=== PATIENT | female | born 1945 | race Caucasian/White ===

== ENCOUNTER → 2016-09-11 | Outpatient (CLI) | payer BC ==
[~2016-09-11] MED LIST: ALBU18002 INH; ALBU1AER9 INH; ALPR-385 PO; AMOX500C3 PO; ASCO250T4 PO; ASPI81CH5 PO; CHOL1CAP57 PO; CRAN500C2 PO; CYAN10004 PO; CYCL0.052 OP; FLAX12003 PO; FLUT0.0529; HYDR25TA4 PO; INSDGI SC; INSU1INJ2 SC; INSUINJ14 SC; LINA1CAP PO; LISI40TA PO; MAGN400T6 PO; METF500T5 PO; MISCCAP52 PO; MULT-223 PO; MULT60CA PO; OLOP0.1S2 OP; OMEG10007 PO; OPTIRAY 320 IV PRN; POTA10CA28 PO; POTA99TA PO; PROP1SOL OP
--- NOTE | 2016-09-11 08:04 | DIAGNOSTIC IMAGING REPORT ---
CT SCAN OF THE THORACIC SPINE WITH IV CONTRAST CLINICAL HISTORY: Unspecified abnormal spinal MRI. Reported cancer history. COMPARISON STUDY: Radiographs of the thoracic spine dated 11/02/2012. Chest CT dated 10/22/2014. MRI of the lumbar spine dated 08/14/2015. TECHNIQUE: Following the IV administration of 101 cc of Optiray 320, CT scan of the thoracic spine is performed from the lower cervical spine to the upper lumbar spine. Images were reviewed in the axial, sagittal, and coronal planes. IV contrast was administered without complication. CT DOSE: 844.37 mGy.cm FINDINGS: The skeletal structures are osteopenic. There is no evidence of fracture or malalignment involving the thoracic spine. Vertebral body height and alignment are maintained. Small anterior osteophytes are seen throughout. The transverse and spinous processes are intact. No lytic or blastic lesions are seen. The intervertebral disc spaces appear maintained. There is no evidence of large disc herniation. The central canal is clear as visualized. The paraspinous soft tissues are within normal limits. No enhancing mass lesion is suspected. There is a small hiatal hernia. The visualized lung parenchyma appears clear. The imaged posterior ribs are intact. A 1.3 cm nodule is identified in the left lobe of the thyroid gland. There are coronary artery calcifications. Cholecystectomy clips are noted. Findings suggest hepatic steatosis. Small bilateral renal cysts are noted. IMPRESSION: 1. No acute abnormality is seen involving the thoracic spine. 2. No lytic or blastic bony lesions are identified. Dictated: 09/11/2016 7:38 AM Transcribed: 09/11/2016 8:04 AM [facility] Electronically signed by: Fran Wharton M.D. 09/11/2016 8:38 AM Dictated Date/Time: 09/11/2016 7:38 AM
== END | disposition home or self-care (01) ==
LOC: C.CTS 07:10
PROVIDERS: ATTEND Family Medicine
DX: R93.7 Abnormal findings on diagnostic imaging of other parts of musculoskeletal system (principal)

== ENCOUNTER 2016-09-17 22:27 | Emergency (ER) | payer BC ==
[~2016-09-17] VITALS: Ht 160 cm; Wt 70.7 kg
[~2016-09-17 22:27] MED LIST changes: -ALBU18002 INH; -INSU1INJ2 SC; -METF500T5 PO; -OPTIRAY 320 IV PRN; -POTA99TA PO
[2016-09-17 22:29] VITALS: TEMP 36.5; Ht 160 cm; Wt 70.7 kg
--- NOTE | 2016-09-17 22:57 | EMERGENCY ROOM VISIT NOTE ---
History Report prepared by Ada: Michael Skaggs Under the Supervision of: Dr. Fernando Garibay D.O. First contact with patient: 22:37 Chief Complaint: OTHER COMPLAINT Stated Complaint: HIGH BP, LOW SUGAR, NUMBNESS FROM BELLY DOWN History of Present Illness The patient is a 71 year old female who presents to the Emergency Room with complaints of a persistent headache that began a few hours prior to arrival. The patient states that her pain is localized in the back of her head. 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 The patient also made note of an unusual "warm" feeling in her abdomen. She described this episode as a similar feeling to drinking CT contrast, which she did last Wednesday one week prior to arrival. This warm feeling lasted for only a few seconds. She states that her blood sugar was in the 120s today, which is low for her as she usually likes to stay in the 150's. The patient claims that she received injections in her back yesterday for chronic pain. She denies any ambulatory dysfunction today. She denies any recent bowel movement or urinary irregularities. Source of History: patient Onset: A few hours prior to arrival. Position: head Timing: other (Persistent) Associated Symptoms: + abdominal pain (WARMTH), No urinary symptoms Review of Systems See HPI for pertinent positives and negatives. A total of ten systems were reviewed and were otherwise negative. 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 Social History Smoking Status: Never Smoker Alcohol Use: none Drug Use: none Marital Status: Housing Status: lives alone Occupation Status: retired Current/Historical Medications Scheduled Amoxicillin (Amoxil), 2,000 MG PO PRN/UD Ascorbic Acid (Vitamin C), 250 MG PO DAILY Aspirin (Aspirin Childrens), 81 MG PO DAILY Cholecalciferol (Vitamin D3), 1,000 UNIT PO DAILY Cranberry (Vaccinium Macrocarp (Cranberry), 500 MG PO DAILY Cyanocobalamin (Vitamin B-12 1000 Mcg), 500 MCG PO DAILY Cyclosporine (Ophth) (Restasis), 1 DROPS OP BID Fish Oil (Matteson-3), 1,000 MG PO BID Flaxseed (Linseed) (Flaxseed Oil), 1 CAP PO DAILY Hydrochlorothiazide (Hctz), 25 MG PO DAILY Insulin Aspart (Novolog Penfill), Unknown Dose SC ACHS Insulin Glargine (Lantus), 30 UNITS SC QAM Insulin Glargine (Lantus), 28 UNITS SC QPM Lisinopril (Zestril), 40 MG PO DAILY Magnesium Oxide (Mag-Ox), 400 MG PO DAILY Metformin Hcl Er (Glucophage Er), 1 TAB PO QAM Misc Natural Products (Turmeric Curcumin), 500 MG PO DAILY Multiple Vitamins W/ Minerals (Multi For Her 50+), 1 TAB PO DAILY Multiple Vitamins W/ Minerals (Preservision Areds 2), 1 CAP PO BID Olopatadine Hcl (Patanol 0.1% Oph), 1 DROP OP BID Potassium (Potassium), 99 MG PO DAILY Scheduled PRN Albuterol Sulfate (Proair Respiclick), 2 PUFFS INH QID PRN for Shortness of Breath Alprazolam (Xanax), 1 TAB PO TID PRN for Anxiety Propylene Glycol (Ophth) (Systane Balance Restorati), 1-2 DROPS OP 2-4h PRN for Itching Allergies Coded Allergies: Linaclotide (Verified Allergy, Intermediate, UNWANTED REACTION, 09/18/16) Sulfa Antibiotics (Verified Allergy, Intermediate, RASH, 09/18/16) Celecoxib (Verified Allergy, Mild, unknown, 09/18/16) Nitrofurantoin (Verified Allergy, Mild, muscle pain, 09/18/16) CI Pigment Blue 63 (Verified Allergy, Unknown, ., 09/18/16) Duloxetine (Verified Allergy, Unknown, ., 09/18/16) Pneumococcal Vaccine (Verified Allergy, Unknown, 09/18/16) Pregabalin (Verified Allergy, Unknown, ., 09/18/16) Naproxen (Verified Adverse Reaction, Mild, heartburn, 09/18/16) Oxycodone (Verified Adverse Reaction, Mild, ITCHING, 09/18/16) Simvastatin (Verified Adverse Reaction, Mild, leg cramping, 09/18/16) Meloxicam (Verified Adverse Reaction, Unknown, HEART PALPITATIONS, 09/18/16 ) Physical Exam Vital Signs Date Time Temp Pulse Resp B/P Pulse Ox O2 Delivery O2 Flow Rate FiO2 09/18/16 01:04 63 18 159/80 96 Room Air 09/18/16 00:39 65 09/18/16 00:38 63 18 159/71 96 Room Air 09/18/16 00:37 94 Room Air 09/18/16 00:37 94 Room Air 09/17/16 22:29 36.5 73 18 192/84 98 Room Air Physical Exam GENERAL: Awake, alert, well-appearing, in no distress HENT: Normocephalic, atraumatic. Oropharynx unremarkable. EYES: Normal conjunctiva. Sclera non-icteric. NECK: Supple. No nuchal rigidity. FROM. No JVD. RESPIRATORY: Clear to auscultation. CARDIAC: Regular rate, normal rhythm. Extremities warm and well perfused. Pulses equal. ABDOMEN: Soft, non-distended. No tenderness to palpation. No rebound or guarding. No masses. RECTAL: Deferred. MUSCULOSKELETAL: Chest examination reveals no tenderness. The back is symmetrical on inspection without obvious abnormality. There is no CVA tenderness to palpation. No joint edema. LOWER EXTREMITIES: Calves are equal size bilaterally and non-tender. No edema. No discoloration. NEURO: Normal sensorium. No sensory or motor deficits noted. Normal neuro. SKIN: No rash or jaundice noted. Medical Decision & Procedures ER Provider Diagnostic Interpretation: X ray results as stated below per my interpretation and radiologist interpretation. Other radiology results as stated below per my review and radiologist interpretation CT HEAD: No acute intracranial abnormality. No ICH, mass effect or edema. Cortical atrophy and white matter changes most consistent with chronic small vessel disease. Visualized sinuses and mastoid air cells are clear. Radiologist: Carrington Nevarez MD Laboratory Results 09/17/16 23:00 Red Blood Count 4.46, Mean Corpuscular Volume 89.0, Mean Corpuscular Hemoglobin 31.2, Mean Corpuscular Hemoglobin Concent 35.0, Mean Platelet Volume 10.1, Neutrophils (%) (Auto) 36.1, Lymphocytes (%) (Auto) 48.3, Monocytes (%) (Auto) 12.1, Eosinophils (%) (Auto) 3.1, Basophils (%) (Auto) 0.4, Neutrophils # (Auto ) 2.01, Lymphocytes # (Auto) 2.68, Monocytes # (Auto) 0.67, Eosinophils # (Auto ) 0.17, Basophils # (Auto) 0.02 09/17/16 23:00 Test 09/17/16 23:00 09/18/16 00:36 White Blood Count 5.55 K/uL (4.8-10.8) Red Blood Count 4.46 M/uL (4.2-5.4) Hemoglobin 13.9 g/dL (12.0-16.0) Hematocrit 39.7 % (37-47) Mean Corpuscular Volume 89.0 fL (80-100) Mean Corpuscular Hemoglobin 31.2 pg (25-34) Mean Corpuscular Hemoglobin Concent 35.0 g/dl (32-36) Platelet Count 189 K/uL (130-400) Mean Platelet Volume 10.1 fL (7.4-10.4) Neutrophils (%) (Auto) 36.1 % Lymphocytes (%) (Auto) 48.3 % Monocytes (%) (Auto) 12.1 % Eosinophils (%) (Auto) 3.1 % Basophils (%) (Auto) 0.4 % Neutrophils # (Auto) 2.01 K/uL (1.4-6.5) Lymphocytes # (Auto) 2.68 K/uL (1.2-3.4) Monocytes # (Auto) 0.67 K/uL (0.11-0.59) Eosinophils # (Auto) 0.17 K/uL (0-0.5) Basophils # (Auto) 0.02 K/uL (0-0.2) RDW Standard Deviation 39.8 fL (36.4-46.3) RDW Coefficient of Variation 12.4 % (11.5-14.5) Immature Granulocyte % (Auto) 0.0 % Immature Granulocyte # (Auto) 0.00 K/uL (0.00-0.02) Prothrombin Time 10.8 SECONDS (9.0-12.0) Prothromb Time International Ratio 1.0 (0.9-1.1) Anion Gap 6.0 mmol/L (3-11) Est Creatinine Clear Calc Drug Dose 70.5 ml/min Estimated GFR () 101.3 Estimated GFR (Non- 87.4 BUN/Creatinine Ratio 37.8 (10-20) Calcium Level 9.3 mg/dl (8.5-10.1) Total Bilirubin 0.4 mg/dl (0.2-1) Direct Bilirubin < 0.1 mg/dl (0-0.2) Aspartate Amino Transf (AST/SGOT) 35 U/L (15-37) Alanine Aminotransferase (ALT/SGPT) 58 U/L (12-78) Alkaline Phosphatase 103 U/L (45-117) Total Protein 7.0 gm/dl (6.4-8.2) Albumin 3.7 gm/dl (3.4-5.0) Bedside Glucose 138 mg/dl (70-90) Laboratory results reviewed by me ECG Indication: weakness Rate (beats per minute): 67 Rhythm: sinus rhythm Findings: other (LAD, LVH) ED Course 9: The patient was evaluated in room C8. A complete history and physical exam was performed. 0103: I reevaluated the patient at this time. She is now complaining of burning throughout her body. There are no focal neurologic deficits on exam. Her vitals are stable. Medical Decision Differential diagnosis include: headache, stroke, anxiety, hypertension, and hypoglycemia. Patient is resting in no distress on repeat examination, patient is nonfocal neurologically at 1:20 AM. Patient does not exhibit any signs of cauda equina I do not suspect that she's had a CVA or TIA. Her blood sugar is stable. I discussed the workup with the patient bedside and her family. I also analyzed her urine I do not suspect urinary tract infection as etiology of the symptoms; Patient is nontoxic A do not suspect sepsis, I do not suspect an epidural abscess. Impression Primary Impression: Headache Additional Impression: Paresthesia Scribe Attestation The scribe's documentation has been prepared under my direction and personally reviewed by me in its entirety. I confirm that the note above accurately reflects all work, treatment, procedures, and medical decision making performed by me. Departure Information Dispostion Home / Self-Care Referrals Michi Melchor D.OWendy (PCP) Patient Instructions ED Headache Sinus, ED Paraesthesias, [facility] Additional Instructions Follow-up primary care physician in one to 2 days, return for worsening symptoms. Problem Qualifiers Primary Impression: Headache Headache type: unspecified Headache chronicity pattern: acute headache Intractability: not intractable Qualified Codes: R51 - Headache
[2016-09-17 23:19] LABS: BASO % 0.4 %; BASO ABS # 0.02 K/uL (0-0.2); COMPLETE YES; EOS % 3.1 %; HEMATOCRIT 39.7 % (37-47); LYMPH % 48.3 %; LYMPH ABS # 2.68 K/uL (1.2-3.4); MEAN CORPUSCULAR HEMOGLOBIN 31.2 pg (25-34); MEAN PLATELET VOLUME 10.1 fL (7.4-10.4); MONO % 12.1 %; NEUT % 36.1 %; PLATELET COUNT 189 K/uL (130-400); RED BLOOD COUNT 4.46 M/uL (4.2-5.4); WHITE BLOOD COUNT 5.55 K/uL (4.8-10.8)
[2016-09-17 23:28] LABS: PROTHROMBIN TIME (PATIENT) 10.8 SECONDS (9.0-12.0)
[2016-09-17 23:40] LABS: ALT/SGPT 58 U/L (12-78); AST/SGOT 35 U/L (15-37); BLOOD UREA NITROGEN 26 mg/dl (7-18); BUN/CREATININE RATIO 37.8 (10-20); CALCIUM 9.3 mg/dl (8.5-10.1); CARBON DIOXIDE 32 mmol/L (21-32); CHLORIDE 107 mmol/L (98-107); CREATININE 0.68 mg/dl (0.60-1.20); GLUCOSE 132 mg/dl (70-99); POTASSIUM 3.4 mmol/L (3.5-5.1); SODIUM 145 mmol/L (136-145)
[2016-09-17 23:42] LABS: ALKALINE PHOSPHATASE 103 U/L (45-117)
[2016-09-18 00:37] VITALS: O2SAT 94
[2016-09-18 01:04] VITALS: BP 159/80; PULSE 63; O2SAT 96
[2016-09-18] MEDS ORDERED: INSDGI SC ×2 (01:07)
[2016-09-18] MEDS ORDERED: METF500T5 PO (01:07)
[2016-09-18] MEDS ORDERED: ALBU18002 INH (01:07)
[2016-09-18] MEDS ORDERED: INSU1INJ2 SC (01:07)
[2016-09-18] MEDS ORDERED: POTA99TA PO (01:07)
--- NOTE | 2016-09-18 07:07 | DIAGNOSTIC IMAGING REPORT ---
CT SCAN OF THE BRAIN WITHOUT IV CONTRAST CLINICAL HISTORY: Headache. COMPARISON STUDY: CT of the brain dated 05/26/2016. TECHNIQUE: Unenhanced axial CT scan of the brain is performed from the vertex to the skull base. CT DOSE: 638.56 mGycm FINDINGS: Brain parenchyma: There are age-related involutional changes noting mild subcortical and periventricular microangiopathic change. There is no hemorrhage, mass effect, or evidence of acute territorial ischemia by CT criteria. Waggoner-white matter is preserved. No extra-axial fluid collection is seen. Ventricles, sulci, cisterns: Prominent secondary to involutional change. Intracranial vasculature: There is atherosclerotic calcification of the cavernous carotid arteries. Calvarium: Unremarkable. Sinuses and mastoids: The visualized paranasal sinuses are clear. The mastoid air cells are well pneumatized. Orbits: The bony orbits are grossly intact. There are bilateral ocular lens implants. IMPRESSION: There is no hemorrhage, mass effect, or evidence of acute territorial ischemia by CT criteria. Electronically signed by: Fran Wharton M.D. 09/18/2016 7:06 AM Dictated Date/Time: 09/18/2016 7:05 AM
== END 2016-09-18 01:33 | disposition home or self-care (01) ==
LOC: C.EDB 22:29 → C.EDC 09-18 01:33
DX: R51 Headache (principal); R20.9 Unspecified disturbances of skin sensation; F41.9 Anxiety disorder, unspecified; R00.1 Bradycardia, unspecified; E11.9 Type 2 diabetes mellitus without complications; M79.7 Fibromyalgia; Z85.3 Personal history of malignant neoplasm of breast; I10 Essential (primary) hypertension; E87.6 Hypokalemia; E78.00 Pure hypercholesterolemia, unspecified; Z90.10 Acquired absence of unspecified breast and nipple; Z90.710 Acquired absence of both cervix and uterus; Z79.82 Long term (current) use of aspirin; Z79.4 Long term (current) use of insulin; Z79.899 Other long term (current) drug therapy

== ENCOUNTER 2016-09-28 22:09 | Emergency (ER) | payer BC ==
[~2016-09-28] VITALS: Ht 160 cm; Wt 70.0 kg
[2016-09-28 22:08] VITALS: TEMP 37; Ht 160 cm; Wt 70.0 kg
[~2016-09-28 22:09] MED LIST changes: +ALBU18002 INH; -ALBU1AER9 INH; -FLUT0.0529; +INSU1INJ2 SC; -INSUINJ14 SC; -LINA1CAP PO; +METF500T5 PO; -OLOP0.1S2 OP; +OLOP0.1S3 OP; -POTA10CA28 PO; +POTA99TA PO
[2016-09-28 23:20] LABS: URINE APPEARANCE CLEAR (CLEAR); URINE BILIRUBIN NEG (NEG); URINE COLOR YELLOW; URINE NITRITE NEG (NEG); URINE PH 7.5 (4.5-7.5); URINE SPECIFIC GRAVITY 1.011 (1.000-1.030); UROBILINOGEN NEG (NEG); ZZUR CULT IF INDIC CLEAN CATCH NO
[2016-09-28 23:23] LABS: MANUAL MICROSCOPIC REQUIRED? NO; REVIEW REQ? NO
[2016-09-28 23:46] LABS: BASO % 0.2 %; BASO ABS # 0.01 K/uL (0-0.2); COMPLETE YES; EOS % 1.6 %; HEMATOCRIT 37.3 % (37-47); LYMPH % 44.6 %; MEAN CELL VOLUME 87.8 fL (80-100); MEAN CORPUSCULAR HEMOGLOBIN 31.5 pg (25-34); MEAN CORPUSCULAR HGB CONC 35.9 g/dl (32-36); MEAN PLATELET VOLUME 9.9 fL (7.4-10.4); MONO % 12.5 %; NEUT % 41.1 %; PLATELET COUNT 181 K/uL (130-400); RED BLOOD COUNT 4.25 M/uL (4.2-5.4); WHITE BLOOD COUNT 4.48 K/uL (4.8-10.8)
[2016-09-28] MEDS ORDERED: ONDANSETRON INJ 2 MG/ML 2 ML VIAL IV STA (23:59)
[2016-09-29 00:03] LABS: BUN/CREATININE RATIO 29.8 (10-20); CALCIUM 9.1 mg/dl (8.5-10.1); CREATININE 0.71 mg/dl (0.60-1.20); POTASSIUM 3.1 mmol/L (3.5-5.1)
[2016-09-29] MEDS ORDERED: POTASSIUM CHLORIDE 10 MEQ TABCR PO STA (00:27)
--- NOTE | 2016-09-29 00:44 | EMERGENCY ROOM VISIT NOTE ---
History Report prepared by Ada: Jose E Renee Under the Supervision of: Dr. Yaritza Veras M.D. First contact with patient: 23:08 Chief Complaint: OTHER COMPLAINT Stated Complaint: WARM, FLUSH FEELING AFTER TAKEN MEDS. History of Present Illness The patient is a 71 year old female who presents to the Emergency Room by EMS with complaints of an episode of a "hot" sensation occurring about three hours ago. She described the sensation as feeling like "a heat wave" and states that it travelled from her head down to her toes. She also complains of tingling to her mouth and difficulty walking. The patient estimates that her symptoms lasted for about five minutes. She notes that she took her blood sugar and blood pressure following the episode. Her systolic blood pressure was 189 at this time. The patient was recently started on Metformin three weeks ago. She states that she took her daily medications shortly before her symptoms began. Included in these medications were her blood pressure medications, aspirin, and metformin. The patient was seen in the ED last week for similar symptoms. She received a head CT at this time which was normal. 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 The patient denies any nausea. Per family, the patient has had three similar episodes in the past few weeks. He states that the patient has been "not herself" lately. He also notes that she has the patient has experienced some "left hand shaking" with her symptoms today. The patient's family notes that there has been a strong smell of propane in the patient's house, and feels that this could possibly be contributing to her symptoms. Source of History: patient, family Onset: three hours ago Symptom Intensity: five minutes Quality: other (like "a heat wave") Timing: other (episode) Associated Symptoms: No nausea Note: The patient also complains of difficulty walking and tingling to her mouth. She also experienced some left hand shaking. Review of Systems See HPI for pertinent positives & negatives. A total of 10 systems reviewed and were otherwise negative. 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 Social History Smoking Status: Never Smoker Alcohol Use: none Drug Use: none Marital Status: Housing Status: lives alone Occupation Status: retired Current/Historical Medications Scheduled Amoxicillin (Amoxil), 2,000 MG PO PRN/UD Ascorbic Acid (Vitamin C), 250 MG PO DAILY Aspirin (Aspirin Childrens), 81 MG PO DAILY Cholecalciferol (Vitamin D3), 1,000 UNIT PO DAILY Cranberry (Vaccinium Macrocarp (Cranberry), 500 MG PO DAILY Cyanocobalamin (Vitamin B-12 1000 Mcg), 500 MCG PO DAILY Cyclosporine (Ophth) (Restasis), 1 DROPS OP BID Fish Oil (Spring-3), 1,000 MG PO BID Flaxseed (Linseed) (Flaxseed Oil), 1 CAP PO DAILY Hydrochlorothiazide (Hctz), 25 MG PO DAILY Insulin Aspart (Novolog Penfill), Unknown Dose SC ACHS Insulin Glargine (Lantus), 30 UNITS SC QAM Insulin Glargine (Lantus), 28 UNITS SC QPM Lisinopril (Zestril), 40 MG PO DAILY Magnesium Oxide (Mag-Ox), 400 MG PO DAILY Metformin Hcl Er (Glucophage Er), 1 TAB PO QAM Misc Natural Products (Turmeric Curcumin), 500 MG PO DAILY Multiple Vitamins W/ Minerals (Multi For Her 50+), 1 TAB PO DAILY Multiple Vitamins W/ Minerals (Preservision Areds 2), 1 CAP PO BID Olopatadine Hcl (Patanol 0.1% Oph), 1 DROP OP BID Potassium (Potassium), 99 MG PO DAILY Scheduled PRN Albuterol Sulfate (Proair Respiclick), 2 PUFFS INH QID PRN for Shortness of Breath Alprazolam (Xanax), 1 TAB PO TID PRN for Anxiety Propylene Glycol (Ophth) (Systane Balance Restorati), 1-2 DROPS OP 2-4h PRN for Itching Allergies Coded Allergies: Linaclotide (Verified Allergy, Intermediate, UNWANTED REACTION, 09/29/16) Sulfa Antibiotics (Verified Allergy, Intermediate, RASH, 09/29/16) Celecoxib (Verified Allergy, Mild, unknown, 09/29/16) Nitrofurantoin (Verified Allergy, Mild, muscle pain, 09/29/16) CI Pigment Blue 63 (Verified Allergy, Unknown, ., 09/29/16) Duloxetine (Verified Allergy, Unknown, ., 09/29/16) Pneumococcal Vaccine (Verified Allergy, Unknown, 09/29/16) Pregabalin (Verified Allergy, Unknown, ., 09/29/16) Naproxen (Verified Adverse Reaction, Mild, heartburn, 09/29/16) Oxycodone (Verified Adverse Reaction, Mild, ITCHING, 09/29/16) Simvastatin (Verified Adverse Reaction, Mild, leg cramping, 09/29/16) Meloxicam (Verified Adverse Reaction, Unknown, HEART PALPITATIONS, 09/29/16 ) Physical Exam Vital Signs Date Time Temp Pulse Resp B/P Pulse Ox O2 Delivery O2 Flow Rate FiO2 09/29/16 01:14 64 18 158/68 97 09/28/16 23:59 68 18 140/67 97 Room Air 09/28/16 22:23 72 09/28/16 22:08 37.0 74 20 163/87 94 Room Air Physical Exam Vital signs reviewed. General: Well-appearing female, in no significant distress. HEENT: No scleral icterus, PERRLA, neck supple. Atraumatic. Cardiovascular: Regular rate and rhythm, no extra sounds. Pulmonary: Clear to auscultation bilaterally, normal work of breathing. Abdomen: Soft, nontender, nondistended, positive bowel sounds. Musculoskeletal: Atraumatic, no peripheral edema. Neurologic: Patient awake alert and oriented x 3, full strength in all 4 extremities. Cranial nerves 2 through 12 grossly intact. Skin: Warm, dry, no rash Medical Decision & Procedures Laboratory Results 09/28/16 23:35 Red Blood Count 4.25, Mean Corpuscular Volume 87.8, Mean Corpuscular Hemoglobin 31.5, Mean Corpuscular Hemoglobin Concent 35.9, Mean Platelet Volume 9.9, Neutrophils (%) (Auto) 41.1, Lymphocytes (%) (Auto) 44.6, Monocytes (%) (Auto) 12.5, Eosinophils (%) (Auto) 1.6, Basophils (%) (Auto) 0.2, Neutrophils # (Auto ) 1.84, Lymphocytes # (Auto) 2.00, Monocytes # (Auto) 0.56, Eosinophils # (Auto ) 0.07, Basophils # (Auto) 0.01 09/28/16 23:35 Test 09/28/16 22:20 09/28/16 23:35 09/28/16 23:40 Urine Color YELLOW Urine Appearance CLEAR (CLEAR) Urine pH 7.5 (4.5-7.5) Urine Specific [place] 1.011 (1.000-1.030) Urine Protein NEG (NEG) Urine Glucose (UA) NEG (NEG) Urine Ketones NEG (NEG) Urine Occult Blood NEG (NEG) Urine Nitrite NEG (NEG) Urine Bilirubin NEG (NEG) Urine Urobilinogen NEG (NEG) Urine Leukocyte Esterase SMALL (NEG) Urine WBC (Auto) 5-10 /hpf (0-5) Urine RBC (Auto) 0-4 /hpf (0-4) Urine Hyaline Casts (Auto) 1-5 /lpf (0-5) Urine Epithelial Cells (Auto) 10-20 /lpf (0-5) Urine Bacteria (Auto) NEG (NEG) White Blood Count 4.48 K/uL (4.8-10.8) Red Blood Count 4.25 M/uL (4.2-5.4) Hemoglobin 13.4 g/dL (12.0-16.0) Hematocrit 37.3 % (37-47) Mean Corpuscular Volume 87.8 fL (80-100) Mean Corpuscular Hemoglobin 31.5 pg (25-34) Mean Corpuscular Hemoglobin Concent 35.9 g/dl (32-36) Platelet Count 181 K/uL (130-400) Mean Platelet Volume 9.9 fL (7.4-10.4) Neutrophils (%) (Auto) 41.1 % Lymphocytes (%) (Auto) 44.6 % Monocytes (%) (Auto) 12.5 % Eosinophils (%) (Auto) 1.6 % Basophils (%) (Auto) 0.2 % Neutrophils # (Auto) 1.84 K/uL (1.4-6.5) Lymphocytes # (Auto) 2.00 K/uL (1.2-3.4) Monocytes # (Auto) 0.56 K/uL (0.11-0.59) Eosinophils # (Auto) 0.07 K/uL (0-0.5) Basophils # (Auto) 0.01 K/uL (0-0.2) RDW Standard Deviation 39.3 fL (36.4-46.3) RDW Coefficient of Variation 12.3 % (11.5-14.5) Immature Granulocyte % (Auto) 0.0 % Immature Granulocyte # (Auto) 0.00 K/uL (0.00-0.02) Anion Gap 10.0 mmol/L (3-11) Est Creatinine Clear Calc Drug Dose 67.2 ml/min Estimated GFR () 98.6 Estimated GFR (Non- 85.1 BUN/Creatinine Ratio 29.8 (10-20) Calcium Level 9.1 mg/dl (8.5-10.1) Total Bilirubin 0.5 mg/dl (0.2-1) Aspartate Amino Transf (AST/SGOT) 37 U/L (15-37) Alanine Aminotransferase (ALT/SGPT) 59 U/L (12-78) Alkaline Phosphatase 104 U/L (45-117) Total Protein 7.0 gm/dl (6.4-8.2) Albumin 3.5 gm/dl (3.4-5.0) Globulin 3.5 gm/dl (2.5-4.0) Albumin/Globulin Ratio 1.0 (0.9-2) Bedside Troponin I 0.000 ng/ml (0-0.045) Laboratory results per my review. Medications Administered Medications (Trade) Dose Ordered Sig/Ellen Route Start Time Stop Time Status Last Admin Dose Admin Ondansetron HCl (Zofran Inj) 4 mg NOW STAT IV 09/28/16 23:59 09/29/16 00:01 DC 09/29/16 00:09 4 MG Potassium Chloride (Klor-Con M10) 40 meq NOW STAT PO 09/29/16 00:27 09/29/16 00:28 DC 09/29/16 00:45 40 MEQ ECG Indication: other (abnormal sensations) Rate (beats per minute): 71 Rhythm: normal sinus Findings: other (LAD. LVH. Widened QRS. Repolarization abnormality) ED Course 2313: Past medical records reviewed. The patient was evaluated in room C7. A complete history and physical examination was performed. 235: Ordered Zofran Inj 4 mg IV. 0027: Ordered Klor-Con M10 40 meq PO. 0045: Upon reevaluation, the patient appeared to have improvement of her symptoms. I discussed findings with the patient. She verbalized agreement of the treatment plan. The patient was discharged home. Medical Decision Differential diagnosis: Etiologies such as metabolic, infection, hypo/hyperglycemia, electrolyte abnormalities, cardiac sources, intracerebral event, toxicologic, neurologic, as well as others were entertained. This patient was evaluated and appeared to be in no significant distress. Physical examination is fairly unrevealing. The patient was placed on the youth nutritional monitor and found to be in a normal sinus rhythm. She was given Zofran for nausea. Laboratory work reveals mild hypokalemia. She was given 40 mEq of oral potassium. EKG reveals a normal sinus rhythm without evidence of ischemia or arrhythmia. The patient has had [address] scans of the head which are normal. With the shaking of the extremity during these episodes, and is likely in the patient's best interest to have an MRI and EEG. I do not think this is urgent. She was advised to follow-up with her primary care physician this week for reevaluation and coordination of further testing if indicated. The patient will return to the ER for worsening of symptoms or any medical concerns. Impression Primary Impression: Episode of shaking Additional Impressions: Flushing reaction Hypokalemia Scribe Attestation The scribe's documentation has been prepared under my direction and personally reviewed by me in its entirety. I confirm that the note above accurately reflects all work, treatment, procedures, and medical decision making performed by me. Departure Information Dispostion Home / Self-Care Referrals Michi Melchor D.O. (PCP) Forms HOME CARE DOCUMENTATION FORM, IMPORTANT VISIT INFORMATION, WORK / SCHOOL INSTRUCTIONS Patient Instructions My [facility] Additional Instructions Diagnosis: Flushing reaction, Shaking, low potassium Follow up with your doctor this week for reevaluation. You may need neurology referral for ?seizure activity. You will likely need EEG and MRI Return to emergency for worsening of symptoms or any medical concerns. Problem Qualifiers
[2016-09-29 01:14] VITALS: BP 158/68; PULSE 64; O2SAT 97
== END 2016-09-29 01:15 | disposition home or self-care (01) ==
LOC: EDBD 22:09 → C.EDC 22:12
DX: R25.1 Tremor, unspecified (principal); R23.2 Flushing; E87.6 Hypokalemia; F41.9 Anxiety disorder, unspecified; E11.9 Type 2 diabetes mellitus without complications; M79.7 Fibromyalgia; I10 Essential (primary) hypertension; M19.90 Unspecified osteoarthritis, unspecified site; E78.00 Pure hypercholesterolemia, unspecified; Z85.3 Personal history of malignant neoplasm of breast; Z90.710 Acquired absence of both cervix and uterus; Z90.10 Acquired absence of unspecified breast and nipple; Z96.659 Presence of unspecified artificial knee joint; Z79.82 Long term (current) use of aspirin; Z79.4 Long term (current) use of insulin

== ENCOUNTER → 2016-10-26 | Outpatient (CLI) | payer BC ==
--- NOTE | 2016-10-27 18:02 | ELECTROENCEPHALOGRAPH REPORT ---
REQUESTING PHYSICIAN: Jacinto Zheng MD CLINICAL DIAGNOSIS: Shaking spells, frequent headaches, question seizures. EEG DIAGNOSIS: Essentially normal during wakefulness. DESCRIPTION OF TRACING: This EEG was done in laboratory and is of excellent technical quality without significant muscle or movement artifacts. Simultaneous video analysis of patient movement and behavior was obtained. Photic stimulation was performed. Hyperventilation was not. Drowsiness and light sleep were not seen. Under these conditions, there is evidence for normal appearing background rhythm in the alpha range of up to 10 Hz of maximum frequency and 30 microvolts of maximum amplitude. This is maximum in posterior head regions and bilaterally symmetrical. Polymorphic mid frequency theta activity is seen over all head regions without clear focal or regional predominance. Anterior head region maximum bilaterally symmetrical low voltage fast activity in the beta range is present. Photic stimulation provoked some modest driving response at most flash frequencies without a photomyogenic or photoparoxysmal component. At no time during the waking tracing is there evidence for potentially epileptogenic activity in the form of polyspike or spike wave bursts, focal sharp waves or focal spikes. INTERPRETATION: This electroencephalogram is essentially normal during wakefulness without evidence for focal or generalized encephalopathy and without evidence for potentially epileptogenic activity.
== END | disposition home or self-care (01) ==
LOC: C.NEUR 12:50
PROVIDERS: ATTEND Family Medicine
DX: R51 Headache (principal); R25.1 Tremor, unspecified

== ENCOUNTER → 2017-08-24 | Outpatient (CLI) | payer BC ==
--- NOTE | 2017-08-24 07:50 | DIAGNOSTIC IMAGING REPORT ---
ABDOMEN LIMITED (US) CLINICAL HISTORY: R GROIN PAIN COMPARISON STUDY: None. FINDINGS: Small fat-containing reducible right inguinal hernia. No masses or fluid collections within the right groin. IMPRESSION: Small fat-containing reducible right inguinal hernia. Electronically signed by: Mac Mon M.D. 08/24/2017 7:49 AM Dictated Date/Time: 08/24/2017 7:49 AM
== END | disposition home or self-care (01) ==
LOC: C.ULTR 07:15
PROVIDERS: ATTEND Physician Assistant
DX: K40.90 Unilateral inguinal hernia, without obstruction or gangrene, not specified as recurrent (principal)

== ENCOUNTER → 2017-09-14 | Outpatient (CLI) | payer BC ==
--- NOTE | 2017-09-14 12:04 | DIAGNOSTIC IMAGING REPORT ---
R EXTREMITY NONVASCULAR LIMITED CLINICAL HISTORY: RT SIDED CHEST PAIN, HX OF BREAST CANCER TECHNIQUE: Ultrasound COMPARISON STUDY: CT soft tissue neck 08/26/2015 FINDINGS: Very poor definition of the subcutaneous tissues. Possible 1.5 cm nodule versus lymph node high right axilla. No evidence for abscess or collection. Echogenicity of the tissues otherwise unremarkable postmastectomy. IMPRESSION: Possible 1.5 cm node versus artifact right axilla. The above report was generated using voice recognition software. It may contain grammatical, syntax or spelling errors. Electronically signed by: Noam Osborn M.D. 09/14/2017 12:02 PM Dictated Date/Time: 09/14/2017 12:00 PM
== END | disposition home or self-care (01) ==
LOC: C.ULTR 10:31
PROVIDERS: ATTEND Family Medicine
DX: R07.9 Chest pain, unspecified (principal)

== ENCOUNTER 2017-10-09 13:20 | Observation (INO) | payer BC ==
[~2017-10-09] VITALS: Ht 160 cm; Wt 71.2 kg
[~2017-10-09 13:20] MED LIST changes: -CYCL0.052 OP; +CYCL0.052 OPB; -OLOP0.1S3 OP; +OLOP0.1S3 OPB
[2017-10-09] MEDS ORDERED: ASPIRIN 81 MG CHEW PO STA (13:46)
--- NOTE | 2017-10-09 13:54 | EMERGENCY ROOM VISIT NOTE ---
History Report prepared by Ada: Uma Small Under the Supervision of: Dr. Jerrell Mustafa M.D. First contact with patient: 13:38 Chief Complaint: SHORTNESS OF BREATH Stated Complaint: SHORTNESS OF BREATH Nursing Triage Summary: pt here with recent increased sob with exertion. pt states also has hx of anxiety and has been getting worked up thinking about it. pt denies any lower leg swelling History of Present Illness The patient is a 72 year old female who presents to the Emergency Room with complaints of SOB. He states his shortness of breath has been going on for the last 2 weeks. Patient reports her shortness of breath is worse with exertion, especially walking. She states she feels short of breath after walking short distances. She describes that was having "tingles" across both arms and sometimes her legs. She states she has tightness in her chest and describes it as a 4/10 in severity. She denies any long plane rides, long car rides, immobilization, or trauma. The patient states she does take estrogen creams. She notes she has had some anxiety since she discovered a lump under her arm. 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 Positive anxiety Review of Systems See HPI for pertinent positives and negatives. A total of ten systems were reviewed and were otherwise negative. 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 Social History Smoking Status: Former Smoker (socail ) Alcohol Use: none Drug Use: none Marital Status: Housing Status: lives alone Occupation Status: retired Current/Historical Medications Scheduled Amoxicillin (Amoxil), 2,000 MG PO PRN/UD Ascorbic Acid (Vitamin C), 250 MG PO QAM Aspirin (Aspirin Childrens), 81 MG PO HS Cranberry (Vaccinium Macrocarp (Cranberry), 500 MG PO QAM Cyclosporine (Ophth) (Restasis), 1 DROPS OPB BID Fish Oil ([place]-3), 1,000 MG PO BID Hydrochlorothiazide (Hctz), 25 MG PO QAM Insulin Aspart (Novolog Penfill), Unknown Dose SC ACHS Insulin Glargine (Lantus), 36 UNITS SC QAM Insulin Glargine (Lantus), 24 UNITS SC QPM Lisinopril (Zestril), 40 MG PO HS Magnesium Oxide (Mag-Ox), 400 MG PO QAM Misc Natural Products (Turmeric Curcumin), 500 MG PO QAM Multiple Vitamins W/ Minerals (Multi For Her 50+), 1 TAB PO QAM Naproxen (Aleve), 220 MG PO UD Potassium (Potassium), 99 MG PO HS Scheduled PRN Alprazolam (Xanax), 1 TAB PO TID PRN for Anxiety Olopatadine Hcl (Patanol 0.1% Oph), 1 DROP OPB BID PRN for Itching Propylene Glycol (Ophth) (Systane Balance Restorati), 1-2 DROPS OP 2-4h PRN for Itching Allergies Coded Allergies: Latex (Unverified Allergy, Intermediate, REDNESS, 10/09/17) Linaclotide (Verified Allergy, Intermediate, UNWANTED REACTION, 10/09/17) Sulfa Antibiotics (Verified Allergy, Intermediate, RASH, 10/09/17) Celecoxib (Verified Allergy, Mild, unknown, 10/09/17) Nitrofurantoin (Verified Allergy, Mild, muscle pain, 10/09/17) CI Pigment Blue 63 (Verified Allergy, Unknown, ., 10/09/17) Duloxetine (Verified Allergy, Unknown, ., 10/09/17) Pneumococcal Vaccine (Verified Allergy, Unknown, 10/09/17) Pregabalin (Verified Allergy, Unknown, ., 10/09/17) Naproxen (Verified Adverse Reaction, Mild, heartburn, 10/09/17) Oxycodone (Verified Adverse Reaction, Mild, ITCHING, 10/09/17) Simvastatin (Verified Adverse Reaction, Mild, leg cramping, 10/09/17) Meloxicam (Verified Adverse Reaction, Unknown, HEART PALPITATIONS, 10/09/17) Physical Exam Vital Signs Date Time Temp Pulse Resp B/P (MAP) Pulse Ox O2 Delivery O2 Flow Rate FiO2 10/09/17 16:28 133/69 10/09/17 15:50 61 19 10/09/17 15:31 153/72 10/09/17 15:24 95 Room Air 10/09/17 15:20 61 20 10/09/17 15:17 163/71 10/09/17 14:20 60 16 96 10/09/17 13:57 95 Room Air 10/09/17 13:50 62 16 10/09/17 13:48 61 10/09/17 13:33 36.6 72 16 143/80 95 Room Air Physical Exam Physical Exam GENERAL: She is oriented to person, place, and time. she appears well- developed and well-nourished. She does not appear distressed. ____ HENT: Exam performed. Head: Normocephalic and atraumatic. Right Ear: External ear normal. No mastoid tenderness. Left Ear: External ear normal. No mastoid tenderness. Mouth/Throat: The oropharynx is clear and moist. No trismus in the jaw. No dental abscesses or uvula swelling. No oropharyngeal exudate or tonsillar abscesses. ____ EYES: Conjunctivae and EOM are normal. Pupils are equal, round, and reactive to light. Right eye exhibits no discharge. Left eye exhibits no discharge. No scleral icterus. ____ NECK: Normal range of motion. Neck supple. No JVD present. No spinous process tenderness present. No carotid bruit present. No rigidity. No tracheal deviation and normal range of motion present. No Brudzinski's sign and no Kernig 's sign noted. ____ CV: Normal rate, regular rhythm, normal heart sounds and intact distal pulses. There is no peripheral edema. Palpable radial pulses bue. ____ PULM/CHEST: Effort normal and breath sounds normal. No respiratory distress. No stridor. She has no wheezes. She has no rales. Chest Wall: She exhibits no tenderness. ____ ABD: The abdomen is soft. Bowel sounds are normal. She has no distension. No mass is present. There is no tenderness. There is no rebound, no guarding, no Mcmullen's sign and no tenderness at McBurney's point. Rovsig negative MUSC/SKEL: Normal range of motion. There is no peripheral edema, tenderness or deformity. LYMPH: No cervical adenopathy. ____ NEURO: She is alert and oriented to person, place, and time. She has normal strength. No cranial nerve deficit or sensory deficit. Coordination and gait normal. GCS eye subscore is 4. GCS verbal subscore is 5. GCS motor subscore is 6. Cerebellar tests wnl. ____ SKIN: Skin is warm and dry. She is not diaphoretic. ____ PSYCH: She has a normal mood and affect. Her behavior is normal. Judgment and thought content normal. ____ Medical Decision & Procedures ER Provider Diagnostic Interpretation: Radiology results as stated below per my review and radiologist interpretation: CHEST 2 VIEWS ROUTINE CLINICAL HISTORY: 72 years-old Female presenting with sob. TECHNIQUE: PA and lateral views of the chest were obtained. COMPARISON: 05/26/2016. FINDINGS: Atherosclerosis of the aortic arch. Cardiac silhouette normal in size. Mildly low lung volumes. Stable right upper lobe nodule. No other focal infiltrate. No large effusion or pneumothorax. Osseous structures normal. Cholecystectomy clips noted. IMPRESSION: 1. Mildly low lung volumes. Otherwise no acute cardiopulmonary disease. 2. Stable right lung nodule. Electronically signed by: Travis Sagastume M.D. 10/09/2017 3:03 PM Dictated Date/Time: 10/09/2017 3:01 PM Laboratory Results 10/09/17 13:50 Red Blood Count 4.38, Mean Corpuscular Volume 91.3, Mean Corpuscular Hemoglobin 32.0, Mean Corpuscular Hemoglobin Concent 35.0, Mean Platelet Volume 10.0, Neutrophils (%) (Auto) 38.9, Lymphocytes (%) (Auto) 46.8, Monocytes (%) (Auto) 11.3, Eosinophils (%) (Auto) 2.8, Basophils (%) (Auto) 0.2, Neutrophils # (Auto ) 1.64, Lymphocytes # (Auto) 1.98, Monocytes # (Auto) 0.48, Eosinophils # (Auto ) 0.12, Basophils # (Auto) 0.01 10/09/17 13:50 Test 10/09/17 13:50 10/09/17 14:05 10/09/17 15:15 10/09/17 16:28 White Blood Count 4.23 K/uL (4.8-10.8) Red Blood Count 4.38 M/uL (4.2-5.4) Hemoglobin 14.0 g/dL (12.0-16.0) Hematocrit 40.0 % (37-47) Mean Corpuscular Volume 91.3 fL (80-100) Mean Corpuscular Hemoglobin 32.0 pg (25-34) Mean Corpuscular Hemoglobin Concent 35.0 g/dl (32-36) Platelet Count 188 K/uL (130-400) Mean Platelet Volume 10.0 fL (7.4-10.4) Neutrophils (%) (Auto) 38.9 % Lymphocytes (%) (Auto) 46.8 % Monocytes (%) (Auto) 11.3 % Eosinophils (%) (Auto) 2.8 % Basophils (%) (Auto) 0.2 % Neutrophils # (Auto) 1.64 K/uL (1.4-6.5) Lymphocytes # (Auto) 1.98 K/uL (1.2-3.4) Monocytes # (Auto) 0.48 K/uL (0.11-0.59) Eosinophils # (Auto) 0.12 K/uL (0-0.5) Basophils # (Auto) 0.01 K/uL (0-0.2) RDW Standard Deviation 42.1 fL (36.4-46.3) RDW Coefficient of Variation 12.6 % (11.5-14.5) Immature Granulocyte % (Auto) 0.0 % Immature Granulocyte # (Auto) 0.00 K/uL (0.00-0.02) D-Dimer 490 ug/L FEU (0-500) Anion Gap 5.0 mmol/L (3-11) Est Creatinine Clear Calc Drug Dose 76.1 ml/min Estimated GFR () 103.1 Estimated GFR (Non- 89.0 BUN/Creatinine Ratio 31.9 (10-20) Calcium Level 10.0 mg/dl (8.5-10.1) Magnesium Level 2.2 mg/dl (1.8-2.4) Troponin I < 0.015 ng/ml (0-0.045) Thyroid Stimulating Hormone (TSH) 1.450 uIu/ml (0.300-4.500) Influenza Type A Antigen Neg for Influ A (NEG) Influenza Type B Antigen Neg for Influ B (NEG) Bedside Glucose 76 mg/dl (70-90) Laboratory results reviewed by me Medications Administered Medications (Trade) Dose Ordered Sig/Ellen Route Start Time Stop Time Status Last Admin Dose Admin Aspirin (Aspirin Chew) 324 mg NOW STAT PO 10/09/17 13:46 10/09/17 13:51 DC 10/09/17 14:03 324 MG Potassium Chloride (Klor-Con M10) 40 meq NOW STAT PO 10/09/17 15:13 10/09/17 15:15 DC 10/09/17 15:53 40 MEQ Sodium Chloride 1,000 ml @ 125 mls/hr Q8H STAT IV 10/09/17 15:21 10/09/17 23:20 10/09/17 15:21 125 MLS/HR ECG Per My Interpretation Indication: SOB/dyspnea Rate (beats per minute): 57 Rhythm: sinus rhythm Findings: T-wave inversion (AVL), other (ID interval within normal limits, ARS is 128, QTC within normal limits, left ventricular hypertrophy present, no ST elevation or depression ) Comparison ECG Date: 1245 today at a previous facility Change: no significant change ED Course 1345: The patient was evaluated in room C7. A complete history and physical exam was performed. 1346: Aspirin chew 324 mg PO 1512: EKG shows sinus rhythm with left ventricular hypertrophy. T-wave inversion in lead aVL. QRS is mildly widened. No left bundle branch block or acute STEMI. Troponin and d-dimer negative. Chest x-ray negative. Patient reports she still felt mildly short of breath and was still having mild chest "discomfort" 3 out of 10. Patient will be kept in observation for rule out ACS Dr. Morales, [facility] Hospitalist, will further evaluate the patient. Patient' s potassium 3.2, replaced with Potassium Chloride 40 meq PO Medical Decision EKG shows sinus rhythm with left ventricular hypertrophy. T-wave inversion in lead aVL. QRS is mildly widened. No left bundle branch block or acute STEMI. Troponin and d-dimer negative. Chest x-ray negative. Patient reports she still felt mildly short of breath and was still having mild chest "discomfort" 3 out of 10. Patient will be kept in observation for rule out ACS [facility] will further evaluate the patient. Patient's potassium 3.2, replaced with Potassium Chloride 40 meq PO Medication Reconcilliation Current Medication List: was personally reviewed by me Blood Pressure Screening Patient's blood pressure: Elevated blood pressure Blood pressure disposition: Elevated BP felt to be situational Consults Time Called: 1510 Consulting Physician: [facility] Returned Call: [phone] will further evaluate the patient. Impression Primary Impression: Dyspnea Scribe Attestation The scribe's documentation has been prepared under my direction and personally reviewed by me in its entirety. I confirm that the note above accurately reflects all work, treatment, procedures, and medical decision making performed by me. The chart was completed utilizing [employer] Speech voice recognition software. Grammatical errors, random word insertions, pronoun errors, and incomplete sentences are an occasional consequence of this system due to software limitations, ambient noise, and hardware issues. Any formal questions or concerns about the content, text, or information contained within the body of this dictation should be directly addressed to the physician for clarification. Departure Information Dispostion Being Evaluated By Hospitalist ([facility]) Referrals Michi Melchor, D.O. (PCP) Patient Instructions My [facility] Problem Qualifiers Primary Impression: Dyspnea Dyspnea type: dyspnea on exertion Qualified Codes: R06.09 - Other forms of dyspnea
--- NOTE | 2017-10-09 13:56 | EMERGENCY ROOM VISIT NOTE ---
History Report prepared by Ada: Uma Small Under the Supervision of: Dr. Jerrell Mustafa M.D. First contact with patient: 13:38 Chief Complaint: SHORTNESS OF BREATH Stated Complaint: SHORTNESS OF BREATH Nursing Triage Summary: pt here with recent increased sob with exertion. pt states also has hx of anxiety and has been getting worked up thinking about it. 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 Social History Smoking Status: Never Smoker Alcohol Use: none Drug Use: none Marital Status: Housing Status: lives alone Occupation Status: retired Current/Historical Medications Scheduled Amoxicillin (Amoxil), 2,000 MG PO PRN/UD Ascorbic Acid (Vitamin C), 250 MG PO DAILY Aspirin (Aspirin Childrens), 81 MG PO DAILY Cholecalciferol (Vitamin D3), 1,000 UNIT PO DAILY Cranberry (Vaccinium Macrocarp (Cranberry), 500 MG PO DAILY Cyanocobalamin (Vitamin B-12 1000 Mcg), 500 MCG PO DAILY Cyclosporine (Ophth) (Restasis), 1 DROPS OP BID Fish Oil ([place]-3), 1,000 MG PO BID Flaxseed (Linseed) (Flaxseed Oil), 1 CAP PO DAILY Hydrochlorothiazide (Hctz), 25 MG PO DAILY Insulin Aspart (Novolog Penfill), Unknown Dose SC ACHS Insulin Glargine (Lantus), 30 UNITS SC QAM Insulin Glargine (Lantus), 28 UNITS SC QPM Lisinopril (Zestril), 40 MG PO DAILY Magnesium Oxide (Mag-Ox), 400 MG PO DAILY Metformin Hcl Er (Glucophage Er), 1 TAB PO QAM Misc Natural Products (Turmeric Curcumin), 500 MG PO DAILY Multiple Vitamins W/ Minerals (Multi For Her 50+), 1 TAB PO DAILY Multiple Vitamins W/ Minerals (Preservision Areds 2), 1 CAP PO BID Olopatadine Hcl (Patanol 0.1% Oph), 1 DROP OP BID Potassium (Potassium), 99 MG PO DAILY Scheduled PRN Albuterol Sulfate (Proair Respiclick), 2 PUFFS INH QID PRN for Shortness of Breath Alprazolam (Xanax), 1 TAB PO TID PRN for Anxiety Propylene Glycol (Ophth) (Systane Balance Restorati), 1-2 DROPS OP 2-4h PRN for Itching Allergies Coded Allergies: Linaclotide (Verified Allergy, Intermediate, UNWANTED REACTION, 09/29/16) Sulfa Antibiotics (Verified Allergy, Intermediate, RASH, 09/29/16) Celecoxib (Verified Allergy, Mild, unknown, 09/29/16) Nitrofurantoin (Verified Allergy, Mild, muscle pain, 09/29/16) CI Pigment Blue 63 (Verified Allergy, Unknown, ., 09/29/16) Duloxetine (Verified Allergy, Unknown, ., 09/29/16) Pneumococcal Vaccine (Verified Allergy, Unknown, 09/29/16) Pregabalin (Verified Allergy, Unknown, ., 09/29/16) Naproxen (Verified Adverse Reaction, Mild, heartburn, 09/29/16) Oxycodone (Verified Adverse Reaction, Mild, ITCHING, 09/29/16) Simvastatin (Verified Adverse Reaction, Mild, leg cramping, 09/29/16) Meloxicam (Verified Adverse Reaction, Unknown, HEART PALPITATIONS, 09/29/16 ) Physical Exam Vital Signs Date Time Temp Pulse Resp B/P (MAP) Pulse Ox O2 Delivery O2 Flow Rate FiO2 10/09/17 13:48 61 10/09/17 13:33 36.6 72 16 143/80 95 Room Air Physical Exam Physical Exam GENERAL: She is oriented to person, place, and time. She appears well- developed and well-nourished. She does not appear distressed. ____ HENT: Exam performed. Head: Normocephalic and atraumatic. Right Ear: External ear normal. No mastoid tenderness. Left Ear: External ear normal. No mastoid tenderness. Mouth/Throat: The oropharynx is clear and moist. No trismus in the jaw. No dental abscesses or uvula swelling. No oropharyngeal exudate or tonsillar abscesses. ____ EYES: Conjunctivae and EOM are normal. Pupils are equal, round, and reactive to light. Right eye exhibits no discharge. Left eye exhibits no discharge. No scleral icterus. ____ NECK: Normal range of motion. Neck supple. No JVD present. No spinous process tenderness present. No carotid bruit present. No rigidity. No tracheal deviation and normal range of motion present. No Brudzinski's sign and no Kernig 's sign noted. ____ CV: Normal rate, regular rhythm, normal heart sounds and intact distal pulses. There is no peripheral edema. Palpable radial pulses bue. ____ PULM/CHEST: Effort normal and breath sounds normal. No respiratory distress. No stridor. She has no wheezes. She has no rales. Chest Wall: She exhibits no tenderness. ____ ABD: The abdomen is soft. Bowel sounds are normal. She has no distension. No mass is present. There is no tenderness. There is no rebound, no guarding, no Mcmullen's sign and no tenderness at McBurney's point. Rovsig negative MUSC/SKEL: Normal range of motion. There is no peripheral edema, tenderness or deformity. LYMPH: No cervical adenopathy. ____ NEURO: She is alert and oriented to person, place, and time. She has normal strength. No cranial nerve deficit or sensory deficit. Coordination and gait normal. GCS eye subscore is 4. GCS verbal subscore is 5. GCS motor subscore is 6. Cerebellar tests wnl. ____ SKIN: Skin is warm and dry. She is not diaphoretic. ____ PSYCH: She has a normal mood and affect. Her behavior is normal. Judgment and thought content normal. ____ Medical Decision & Procedures Laboratory Results Test 10/09/17 13:46 Departure Information Referrals Michi Melchor D.O. (PCP) Patient Instructions [facility]
[2017-10-09] MEDS ORDERED: NAPR1TAB9 PO (14:07)
[2017-10-09 14:15] LABS: BASO % 0.2 %; BASO ABS # 0.01 K/uL (0-0.2); EOS % 2.8 %; EOS ABS # 0.12 K/uL (0-0.5); LYMPH % 46.8 %; LYMPH ABS # 1.98 K/uL (1.2-3.4); MEAN CELL VOLUME 91.3 fL (80-100); MONO % 11.3 %; MONO ABS # 0.48 K/uL (0.11-0.59); NEUT % 38.9 %; NEUT ABS # 1.64 K/uL (1.4-6.5); PLATELET COUNT 188 K/uL (130-400); RED CELL DISTRIBUTION WIDTH CV 12.6 % (11.5-14.5); RED CELL DISTRIBUTION WIDTH SD 42.1 fL (36.4-46.3); WHITE BLOOD COUNT 4.23 K/uL (4.8-10.8)
[2017-10-09] MEDS ORDERED: LISI40TA PO (14:19)
[2017-10-09 14:24] LABS: BLOOD UREA NITROGEN 20 mg/dl (7-18); CARBON DIOXIDE 30 mmol/L (21-32); CREATININE 0.63 mg/dl (0.60-1.20); GLUCOSE 78 mg/dl (70-99); POTASSIUM 3.2 mmol/L (3.5-5.1); SODIUM 141 mmol/L (136-145)
[2017-10-09 15:01] LABS: INFLUENZA B ANTIGEN Neg for Influ B (NEG)
--- NOTE | 2017-10-09 15:04 | DIAGNOSTIC IMAGING REPORT ---
CHEST 2 VIEWS ROUTINE CLINICAL HISTORY: 72 years-old Female presenting with sob. TECHNIQUE: PA and lateral views of the chest were obtained. COMPARISON: 05/26/2016. FINDINGS: Atherosclerosis of the aortic arch. Cardiac silhouette normal in size. Mildly low lung volumes. Stable right upper lobe nodule. No other focal infiltrate. No large effusion or pneumothorax. Osseous structures normal. Cholecystectomy clips noted. IMPRESSION: 1. Mildly low lung volumes. Otherwise no acute cardiopulmonary disease. 2. Stable right lung nodule. Electronically signed by: Travis Sagastume M.D. 10/09/2017 3:03 PM Dictated Date/Time: 10/09/2017 3:01 PM
[2017-10-09] MEDS ORDERED: POTASSIUM CHLORIDE 10 MEQ TABCR PO STA (15:13)
[2017-10-09] MEDS ORDERED: SODIUM CHLORIDE 0.9% 1000ML 1,000 ML IV STA (15:21)
[2017-10-09] MEDS ORDERED: NITROGLYCERIN 0.4 MG SL PER TAB CHARGE SL STA (15:21)
[2017-10-09 15:24] VITALS: O2SAT 95; Ht 160 cm; Wt 71.2 kg
[2017-10-09] MEDS ORDERED: NITROGLYCERIN 0.4 MG SL PER TAB CHARGE SL PRN (16:00)
--- NOTE | 2017-10-09 16:01 | History and Physical ---
History & Physical Date & Time of Service: Oct 09, 2017 at 15:54 Chief Complaint: Shortness Of Breath Primary Care Physician: Michi Melchor D.OWendy History of Present Illness Source: patient This is a patient with 2 weeks of feeling shortness of breath when walking. Dyspnea also associated with chest discomfort sensation that patient denies of having sharp pain or palpitations. But the sensation is present in middle of the chest. In instances when she feels these episodes it is while she is walking or doing household chairs. When symptoms occur they last fro up to 30 minutes. Patient denies these symptoms are triggered when is already at rest such as sitting down or when she is sleeping. But these symptoms do not occur when she purposely exerts herself such as walking on the treadmill or when she does swimming exercises such as resistance training against water. Patient reports history of anxiety but the midsternal chest symptoms are not similar to anxiety as before. Also notes that she experiences tingling sensations down both arms when she experiences chest symptoms. Patient has history of diabetes and reports of peripheral artery disease. In the ED she was given 324 mg and ED physician asked hospitalist to keep the patient in the hospital for rule out acute coronary syndrome. 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 Social History Smoking Status: Never Smoker Drug Use: none Marital Status: Occupational Status: retired Immunizations History of Influenza Vaccine: Yes Influenza Vaccine Date: May 01, 2007 History of Tetanus Vaccine?: Yes History of Pneumococcal: ALLERGIC History of Hepatitis B Vaccine: No Allergies Coded Allergies: Latex (Unverified Allergy, Intermediate, REDNESS, 10/09/17) Linaclotide (Verified Allergy, Intermediate, UNWANTED REACTION, 10/09/17) Sulfa Antibiotics (Verified Allergy, Intermediate, RASH, 10/09/17) Celecoxib (Verified Allergy, Mild, unknown, 10/09/17) Nitrofurantoin (Verified Allergy, Mild, muscle pain, 10/09/17) CI Pigment Blue 63 (Verified Allergy, Unknown, ., 10/09/17) Duloxetine (Verified Allergy, Unknown, ., 10/09/17) Pneumococcal Vaccine (Verified Allergy, Unknown, 10/09/17) Pregabalin (Verified Allergy, Unknown, ., 10/09/17) Naproxen (Verified Adverse Reaction, Mild, heartburn, 10/09/17) Oxycodone (Verified Adverse Reaction, Mild, ITCHING, 10/09/17) Simvastatin (Verified Adverse Reaction, Mild, leg cramping, 10/09/17) Meloxicam (Verified Adverse Reaction, Unknown, HEART PALPITATIONS, 10/09/17) Home Medications Scheduled Amoxicillin (Amoxil), 2,000 MG PO PRN/UD Ascorbic Acid (Vitamin C), 250 MG PO QAM Aspirin (Aspirin Childrens), 81 MG PO HS Cranberry (Vaccinium Macrocarp (Cranberry), 500 MG PO QAM Cyclosporine (Ophth) (Restasis), 1 DROPS OPB BID Fish Oil ([place]-3), 1,000 MG PO BID Hydrochlorothiazide (Hctz), 25 MG PO QAM Insulin Aspart (Novolog Penfill), Unknown Dose SC ACHS Insulin Glargine (Lantus), 36 UNITS SC QAM Insulin Glargine (Lantus), 24 UNITS SC QPM Lisinopril (Zestril), 40 MG PO HS Magnesium Oxide (Mag-Ox), 400 MG PO QAM Misc Natural Products (Turmeric Curcumin), 500 MG PO QAM Multiple Vitamins W/ Minerals (Multi For Her 50+), 1 TAB PO QAM Naproxen (Aleve), 220 MG PO UD Potassium (Potassium), 99 MG PO HS Scheduled PRN Alprazolam (Xanax), 1 TAB PO TID PRN for Anxiety Olopatadine Hcl (Patanol 0.1% Oph), 1 DROP OPB BID PRN for Itching Propylene Glycol (Ophth) (Systane Balance Restorati), 1-2 DROPS OP 2-4h PRN for Itching Review of Systems Constitutional: No fever Eyes: No worsening of vision, No eye pain, No discharge ENT: No hearing loss, No nasal symptoms, No sore throat, No trouble swallowing Respiratory: + shortness of breath, + dyspnea on exertion, No cough, No sputum , No wheezing, No dyspnea at rest, No hemoptysis Cardiovascular: + problem reported (vague midsternal sensation), No edema, No palpitations Abdomen: No pain, No nausea, No vomiting Musculoskeletal: No joint pain Genitourinary - Female: No dysuria Neurologic: + numbness/tingling (tingling down both arms when experiences chest discomfort) Psychiatric: + anxiety Integumentary: No rash, No itch Physical Exam Vital Signs Date Time Temp Pulse Resp B/P (MAP) Pulse Ox O2 Delivery O2 Flow Rate FiO2 10/09/17 15:24 95 Room Air 10/09/17 13:57 95 Room Air 10/09/17 13:48 61 10/09/17 13:33 36.6 72 16 143/80 95 Room Air General Appearance: no apparent distress Head: normocephalic, atraumatic Eyes: normal inspection, EOMI, sclerae normal ENT: normal ENT inspection, hearing grossly normal, pharynx normal Neck: supple, no JVD, trachea midline Respiratory/Chest: chest non-tender, lungs clear, normal breath sounds, no respiratory distress, no accessory muscle use Cardiovascular: regular rate, rhythm, no edema, no JVD, no murmur Abdomen/GI: normal bowel sounds, non tender, soft, no organomegaly Back: normal inspection, no CVA tenderness, no muscle spasm, normal range of motion Extremities/Musculoskelatal: normal inspection, no calf tenderness, no pedal edema, non-tender Neurologic/Psych: slag skimmer II-XII nml as tested, no motor/sensory deficits, alert, normal mood/affect, oriented x 3 Skin: normal color, warm/dry, no rash Diagnostics Laboratory Results Results Past 24 Hours Test 10/09/17 13:50 10/09/17 14:05 10/09/17 15:15 10/09/17 15:52 Range/Units White Blood Count 4.23 4.8-10.8 K/uL Red Blood Count 4.38 4.2-5.4 M/uL Hemoglobin 14.0 12.0-16.0 g/dL Hematocrit 40.0 37-47 % Mean Corpuscular Volume 91.3 80-100 fL Mean Corpuscular Hemoglobin 32.0 25-34 pg Mean Corpuscular Hemoglobin Concent 35.0 32-36 g/dl Platelet Count 188 130-400 K/uL Mean Platelet Volume 10.0 7.4-10.4 fL Neutrophils (%) (Auto) 38.9 % Lymphocytes (%) (Auto) 46.8 % Monocytes (%) (Auto) 11.3 % Eosinophils (%) (Auto) 2.8 % Basophils (%) (Auto) 0.2 % Neutrophils # (Auto) 1.64 1.4-6.5 K/uL Lymphocytes # (Auto) 1.98 1.2-3.4 K/uL Monocytes # (Auto) 0.48 0.11-0.59 K/uL Eosinophils # (Auto) 0.12 0-0.5 K/uL Basophils # (Auto) 0.01 0-0.2 K/uL RDW Standard Deviation 42.1 36.4-46.3 fL RDW Coefficient of Variation 12.6 11.5-14.5 % Immature Granulocyte % (Auto) 0.0 % Immature Granulocyte # (Auto) 0.00 0.00-0.02 K/uL D-Dimer 490 0-500 ug/L FEU Sodium Level 141 136-145 mmol/L Potassium Level 3.2 3.5-5.1 mmol/L Chloride Level 105 98-107 mmol/L Carbon Dioxide Level 30 21-32 mmol/L Anion Gap 5.0 3-11 mmol/L Blood Urea Nitrogen 20 7-18 mg/dl Creatinine 0.63 0.60-1.20 mg/dl Est Creatinine Clear Calc Drug Dose 76.1 ml/min Estimated GFR () 103.1 Estimated GFR (Non- 89.0 BUN/Creatinine Ratio 31.9 10-20 Random Glucose 78 70-99 mg/dl Calcium Level 10.0 8.5-10.1 mg/dl Troponin I < 0.015 0-0.045 ng/ml Influenza Type A Antigen Neg for Influ A NEG Influenza Type B Antigen Neg for Influ B NEG Bedside Glucose 76 70-90 mg/dl Impression Assessment and Plan Atypical Chest pain -There is low likelihood that patient has acute coronary syndrome -Patient has some reproducible chest pain in the middle of the chest to palpation where she feels vague sensations for which she denies of having a sharp pain. when she presses on -the left chest with her right arm she feels some pulling of the muscles of the right arm. No tenderness when pressing on the right arm -In comparing the EKG from October 09, 2017 to that of September 28, 2016 there does not appear to be any T wave changes other than lead V1. -Initial troponin negative, will trend troponins in case there is acute coronary syndrome -Echocardiogram ordered to discern whether there are wall motion abnormalities -Monitor on telemetry in case there is arrhythmia already initial EKG is normal sinus rhythm Dyspnea -patient's symptoms of dyspnea is unusual because she reports dyspnea and the chest discomfort at tomes when she is walking during usual day to day life. Never at rest or when sleeping. But she also denies symptoms when she exerts herself at swimming exercises when she does resistance training against water or when walking on the treadmill -speaks comfortably on room air -CXR no acute cardiopulmonary disease and there is presence of stable right upper lobe nodule -D-dimer is negative -will do cardiac workup at this time to see if there is cardiac etiology for dyspnea with walking History of Anxiety -Continue home medication of Xanax Diabetes Mellitus on insulin -uses short acting insulin of 19 units qAM, will use sliding scale insulin for short acting coverage instead while in the hospital -uses long acting insulin 36 units qAM and 24 units qHs of Lantus, continue -check HbA1c and lipid panel Electrolytes and other endocrine -monitor potassium and magnesium -check TSH Peripheral artery disease as per patient continue daily aspirin History of arthritis DVT ppx with Lovenox 40 mg daily Advanced Directives Existing Living Will: Yes Existing Power of Secondary English Teacher: Yes Resuscitation Status VTE Prophylaxis Will order VTE Prophylaxis: Yes
[2017-10-09] MEDS ORDERED: GLUCOSE 10 TABS/TUBE PO PRN (16:15)
[2017-10-09] MEDS ORDERED: GLUCAGON FOR INJ 1 MG VIAL SQ PRN (16:15)
[2017-10-09] MEDS ORDERED: GLUCOSE 40% GEL 15 GM TUBE PO PRN (16:15)
[2017-10-09] MEDS ORDERED: DEXTROSE 50% 50 ML SYR IV PRN (16:15)
[2017-10-09] MEDS ORDERED: IV FLUIDS COMPLETED PRN (16:15)
[2017-10-09 17:24] VITALS: BP 161/67; PULSE 59; TEMP 36.7; O2SAT 97
[2017-10-09 19:58] VITALS: BP 157/73; PULSE 58; TEMP 36.6; O2SAT 95
[2017-10-09] MEDS: LISINOPRIL 40 MG TAB PO SCH (21:24)
[2017-10-09] MEDS: ASPIRIN 81 MG ECTAB PO SCH (21:24)
[2017-10-09] MEDS: INSULIN GLARGINE SOLOSTAR 100 UNITS/ML 3 ML PEN SC SCH (21:26)
[2017-10-09] MEDS: INSULIN ASPART 100 UNITS/ML 3 ML PEN SC SCH (21:27)
[2017-10-09] MEDS: ALPRAZOLAM 0.5 MG TAB PO PRN (21:32)
[2017-10-10 00:12] VITALS: BP 134/78; PULSE 57; TEMP 36.6; O2SAT 95
[2017-10-10 04:17] VITALS: BP 165/91; PULSE 50; TEMP 36.6; O2SAT 97
[2017-10-10 06:56] LABS: BASO % 0.2 %; BASO ABS # 0.01 K/uL (0-0.2); EOS % 2.7 %; EOS ABS # 0.13 K/uL (0-0.5); HEMATOCRIT 38.4 % (37-47); HEMOGLOBIN 13.2 g/dL (12.0-16.0); LYMPH % 43.7 %; LYMPH ABS # 2.11 K/uL (1.2-3.4); MEAN CELL VOLUME 91.9 fL (80-100); MEAN CORPUSCULAR HEMOGLOBIN 31.6 pg (25-34); MEAN PLATELET VOLUME 9.9 fL (7.4-10.4); MONO % 13.5 %; MONO ABS # 0.65 K/uL (0.11-0.59); NEUT % 39.9 %; NEUT ABS # 1.93 K/uL (1.4-6.5); PLATELET COUNT 164 K/uL (130-400); RED CELL DISTRIBUTION WIDTH CV 12.5 % (11.5-14.5); RED CELL DISTRIBUTION WIDTH SD 42.5 fL (36.4-46.3); WHITE BLOOD COUNT 4.83 K/uL (4.8-10.8)
[2017-10-10 06:58] LABS: MEAN CORPUSCULAR HGB CONC 34.4 g/dl (32-36)
[2017-10-10 07:19] LABS: ALBUMIN 3.1 gm/dl (3.4-5.0); CALCIUM 8.9 mg/dl (8.5-10.1); CREATININE 0.64 mg/dl (0.60-1.20); POTASSIUM 3.4 mmol/L (3.5-5.1)
[2017-10-10 07:20] LABS: TOTAL PROTEIN 6.2 gm/dl (6.4-8.2)
[2017-10-10 07:38] VITALS: BP 155/79; PULSE 58; TEMP 36.5; O2SAT 97
[2017-10-10] MEDS: INSULIN ASPART 100 UNITS/ML 3 ML PEN SC SCH ×4 (08:37→21:00)
[2017-10-10] MEDS ORDERED: INSULIN GLARGINE SOLOSTAR 100 UNITS/ML 3 ML PEN SC SCH (09:00)
[2017-10-10] MEDS ORDERED: PERFLUTREN LIPID MICROSPHERE (DEFINITY) IV ONE (09:21)
[2017-10-10] MEDS ORDERED: HYDROmorphone INJ 2 MG/ML SYR/VIAL IV STA (09:31)
[2017-10-10] MEDS: HYDROCHLOROTHIAZIDE 25 MG TAB PO SCH (09:31)
[2017-10-10] MEDS: ENOXAPARIN 40 MG/0.4 ML SYR SQ SCH ×2 (09:32→09:44)
[2017-10-10] MEDS ORDERED: HYDROmorphone INJ 2 MG/ML SYR/VIAL ONE (09:37)
[2017-10-10] MEDS ORDERED: POTASSIUM CHLORIDE 20 MEQ TABCR PO STA (09:52)
[2017-10-10 11:44] VITALS: BP 158/79; PULSE 55; TEMP 36.6; O2SAT 98
--- NOTE | 2017-10-10 12:12 | DIAGNOSTIC IMAGING REPORT ---
BILATERAL AXILLARY ULTRASONOGRAPHY CLINICAL HISTORY: Axillary lymphadenopathy COMPARISON STUDY: 09/14/2017 FINDINGS: Each axilla, there are circumscribed densities with echogenic margins. The structures are isoechoic to adjacent fat. The right density measures 24 mm in long axis. Left density measures 22 mm in long axis. The structures likely represent fatty replaced lymph nodes. IMPRESSION: Suspected bilateral fatty-replaced axillary lymph nodes. Electronically signed by: Giovanni Rosario M.D. 10/10/2017 12:10 PM Dictated Date/Time: 10/10/2017 12:07 PM
--- NOTE | 2017-10-10 13:21 | Cardiology Consultation ---
Cardiology Consultation Date of Service Oct 10, 2017. Cardiology Consultation Indication: Consultation for chest pain History: This is a 72-year-old diabetic female who has been experiencing tachypnea and shortness of breath for approximately 2 weeks. It usually occurs with activity however, patient states that she exercises at the [facility] and is very active and usually she does not have shortness of breath which is confusing to her. She states that suddenly she will develop tachypnea which will last for several minutes to an hour. She does have an anxiety disorder and the night before admission she developed shortness of breath with tingling down her arms and took an antianxiety medication. She then went to sleep with her shortness of breath recurring the following morning. She then decided to present to the emergency department. After admission her cardiac markers have been negative. Her EKG shows sinus rhythm with a left anterior hemiblock. Allergies: The patient has multiple allergies and I refer to her list in the medical record. Current Inpatient Medications Medications (Trade) Dose Ordered Sig/Ellen Route Start Time Stop Time Status Last Admin Dose Admin Nitroglycerin (Nitrostat Tab) 0.4 mg UD PRN SL 10/09/17 16:00 11/08/17 15:59 Enoxaparin Sodium (Lovenox Inj) 40 mg QAM SQ 10/10/17 09:00 11/09/17 08:59 Alprazolam (Xanax Tab) 1 mg TID PRN PO 10/09/17 16:15 11/08/17 16:14 10/09/17 21:32 1 MG Aspirin (Ecotrin Tab) 81 mg HS PO 10/09/17 21:00 11/08/17 20:59 10/09/17 21:24 81 MG Hydrochlorothiazide (Hydrochlorothiazide Tab) 25 mg QAM PO 10/10/17 09:00 11/09/17 08:59 10/10/17 09:31 25 MG Lisinopril (Zestril Tab) 40 mg HS PO 10/09/17 21:00 11/08/17 20:59 10/09/17 21:24 40 MG Insulin Glargine (Lantus Solostar Pen) 24 units QPM SC 10/09/17 21:00 11/08/17 20:59 10/09/17 21:26 24 UNITS Insulin Glargine (Lantus Solostar Pen) 36 units QAM VT 10/10/17 09:00 11/09/17 08:59 10/10/17 09:32 36 UNITS Insulin Aspart (novoLOG ASPART) SLIDING SCALE If C... ACHS SC 10/09/17 21:00 11/08/17 20:59 10/09/17 21:27 2 UNITS Glucose (Glucose 40% Gel) 15-30 GRAMS 15 GRAMS... UD PRN PO 10/09/17 16:15 11/08/17 16:14 Glucose (Glucose Chew Tab) 4-8 Tablets 4 Tabl... UD PRN PO 10/09/17 16:15 11/08/17 16:14 Dextrose (Dextrose 50% 50ML Syringe) 25-50ML OF 50% DW IV FOR... UD PRN IV 10/09/17 16:15 11/08/17 16:14 Glucagon (Glucagon Inj) 1 mg UD PRN SQ 10/09/17 16:15 11/08/17 16:14 Miscellaneous (Iv Fluids Completed) 1 ea PRN PRN N/A 10/09/17 16:15 10/09/18 16:14 Past medical history: Patient has no prior history of heart disease. She does have a long-standing history of fibromyalgia and anxiety disorder. She is a diabetic. She has hypercholesterolemia but cannot take statin medications due to an intolerance. Social history: Patient is a non-smoker. Family medical history: Noncontributory General: The patient denies weight change, night sweats, fever, chills. Head: The patient denies headache and prior head trauma. Cardiovascular: The patient denies chest pain or chest discomfort, dyspnea on exertion, palpitations, PND, orthopnea, edema, spontaneous shortness of breath, syncope and near syncope. Pulmonary: The patient denies cough, wheeze, pleurisy, hemoptysis, sputum, and excessive snoring. Gastrointestinal: The patient denies nausea, vomiting, diarrhea, constipation, bloating, hematemesis, hematochezia, and abdominal pain. Skin: The patient denies diaphoresis and rash. Musculoskeletal: The patient denies joint pain, joint swelling, myalgia, back pain, neck pain and prior injuries. Neurological: The patient denies prior stroke and seizures Vital Signs Past 12 Hours Date Time Temp Pulse Resp B/P (MAP) Pulse Ox O2 Delivery O2 Flow Rate FiO2 10/10/17 12:00 Room Air 10/10/17 11:44 36.6 55 18 158/79 (105) 98 Room Air 10/10/17 07:45 Room Air 10/10/17 07:38 36.5 58 18 155/79 (104) 97 Room Air 10/10/17 04:17 36.6 50 16 165/91 (115) 97 10/10/17 04:00 Room Air General Appearance: Alert and Oriented x3. NAD. Head: Normocephalic Atraumatic. Eyes: PERRLA, EOMI, conjunctiva and sclera clear Neck: Supple. No carotid bruits noted. No JVD. No HJD. Respiratory: Breath sounds clear to auscultation bilaterally. No w/r/r. Cardiovascular: Reg rate and rhythm. S1 and S2 noted. No murmurs, rubs, gallops. PMI non displace. Abdomen: Normal bowel sounds, soft nontender. no abdominal bruits. Extremities: No edema, no clubbing or cyanosis. distal pulses 2/4 bilaterally. Neuro: No focal deficits. Psychiatric: Normal affect. Last 24 Hours Test 10/09/17 13:50 10/09/17 14:05 10/09/17 15:15 10/09/17 17:20 White Blood Count 4.23 K/uL Red Blood Count 4.38 M/uL Hemoglobin 14.0 g/dL Hematocrit 40.0 % Mean Corpuscular Volume 91.3 fL Mean Corpuscular Hemoglobin 32.0 pg Mean Corpuscular Hemoglobin Concent 35.0 g/dl Platelet Count 188 K/uL Mean Platelet Volume 10.0 fL Neutrophils (%) (Auto) 38.9 % Lymphocytes (%) (Auto) 46.8 % Monocytes (%) (Auto) 11.3 % Eosinophils (%) (Auto) 2.8 % Basophils (%) (Auto) 0.2 % Neutrophils # (Auto) 1.64 K/uL Lymphocytes # (Auto) 1.98 K/uL Monocytes # (Auto) 0.48 K/uL Eosinophils # (Auto) 0.12 K/uL Basophils # (Auto) 0.01 K/uL RDW Standard Deviation 42.1 fL RDW Coefficient of Variation 12.6 % Immature Granulocyte % (Auto) 0.0 % Immature Granulocyte # (Auto) 0.00 K/uL Prothrombin Time 10.9 SECONDS Prothromb Time International Ratio 1.0 D-Dimer 490 ug/L FEU Sodium Level 141 mmol/L Potassium Level 3.2 mmol/L Chloride Level 105 mmol/L Carbon Dioxide Level 30 mmol/L Anion Gap 5.0 mmol/L Blood Urea Nitrogen 20 mg/dl Creatinine 0.63 mg/dl Est Creatinine Clear Calc Drug Dose 76.1 ml/min Estimated GFR () 103.1 Estimated GFR (Non- 89.0 BUN/Creatinine Ratio 31.9 Random Glucose 78 mg/dl Calcium Level 10.0 mg/dl Magnesium Level 2.2 mg/dl Troponin I < 0.015 ng/ml Triglycerides Level 150 mg/dl Cholesterol Level 191 mg/dl HDL Cholesterol 47 mg/dl LDL Cholesterol, Calculated 114 mg/dl VLDL Cholesterol, Calculated 30 mg/dl Cholesterol/HDL Ratio 4.1 Thyroid Stimulating Hormone (TSH) 1.450 uIu/ml Influenza Type A Antigen Neg for Influ A Influenza Type B Antigen Neg for Influ B Bedside Glucose 76 mg/dl 158 mg/dl Test 10/09/17 19:23 10/09/17 19:54 10/10/17 01:59 10/10/17 06:47 Bedside Glucose 205 mg/dl Erythrocyte Sedimentation Rate 2 mm/hr Troponin I < 0.015 ng/ml < 0.015 ng/ml C-Reactive Protein < 0.29 mg/dl White Blood Count 4.83 K/uL Red Blood Count 4.18 M/uL Hemoglobin 13.2 g/dL Hematocrit 38.4 % Mean Corpuscular Volume 91.9 fL Mean Corpuscular Hemoglobin 31.6 pg Mean Corpuscular Hemoglobin Concent 34.4 g/dl Platelet Count 164 K/uL Mean Platelet Volume 9.9 fL Neutrophils (%) (Auto) 39.9 % Lymphocytes (%) (Auto) 43.7 % Monocytes (%) (Auto) 13.5 % Eosinophils (%) (Auto) 2.7 % Basophils (%) (Auto) 0.2 % Neutrophils # (Auto) 1.93 K/uL Lymphocytes # (Auto) 2.11 K/uL Monocytes # (Auto) 0.65 K/uL Eosinophils # (Auto) 0.13 K/uL Basophils # (Auto) 0.01 K/uL RDW Standard Deviation 42.5 fL RDW Coefficient of Variation 12.5 % Immature Granulocyte % (Auto) 0.0 % Immature Granulocyte # (Auto) 0.00 K/uL Sodium Level 141 mmol/L Potassium Level 3.4 mmol/L Chloride Level 109 mmol/L Carbon Dioxide Level 27 mmol/L Anion Gap 5.0 mmol/L Blood Urea Nitrogen 24 mg/dl Creatinine 0.64 mg/dl Est Creatinine Clear Calc Drug Dose 74.6 ml/min Estimated GFR () 102.6 Estimated GFR (Non- 88.5 BUN/Creatinine Ratio 37.1 Random Glucose 114 mg/dl Calcium Level 8.9 mg/dl Total Bilirubin 0.8 mg/dl Aspartate Amino Transf (AST/SGOT) 57 U/L Alanine Aminotransferase (ALT/SGPT) 87 U/L Alkaline Phosphatase 64 U/L Total Protein 6.2 gm/dl Albumin 3.1 gm/dl Globulin 3.1 gm/dl Albumin/Globulin Ratio 1.0 Test 10/10/17 07:08 10/10/17 12:04 Bedside Glucose 121 mg/dl 148 mg/dl Impression/recommendations: This is a 72-year-old with a history of fibromyalgia and anxiety disorder who also has diabetes and presents with an unclear picture of dyspnea with exertion and shortness of breath during activities but not always as she is able to exercise on a treadmill and do other activities without developing her symptoms. She is a diabetic and may have a defective warning system. She had an echocardiogram this morning which required Definity for which the patient had a reaction. Her cardiac markers have been negative. Her EKG however, does have a conduction abnormality with a left anterior hemiblock. I will review her echocardiogram but a believe the patient should have a stress test to screen her for coronary artery disease. Since she had problems with the Definity dye as well as the conduction abnormality on her EKG, I would recommend a Lexiscan Cardiolite study. If that study is negative I believe she may be discharged home. I would then recommend an outpatient event monitor for 10 days to 2 weeks as she may be experiencing symptoms due to arrhythmia such as atrial fibrillation.
[2017-10-10] MEDS ORDERED: NURSING DECISION MEDICATION ORDER SCH (13:30)
[2017-10-10] MEDS ORDERED: SODIUM CHLORIDE 0.65% NA SOLN 45 ML (OCEAN) PRN (13:45)
--- NOTE | 2017-10-10 14:30 | ECHOCARDIOGRAM REPORT ---
*NOTICE TO RECEIVING DEMOCRAT AGENCY This information is strictly Confidential and protected under [place] law. [place] law prohibits you from making any further disclosure of this information unless further disclosure is expressly permitted by the written consent of the person to whom it pertains or is authorized by law. A general authorization for the release of medical or other information is not sufficient for this purpose. Hospital accepts no responsibility if the information is made available to any other person, INCLUDING THE PATIENT. Interpretation Summary * Name: AFSANEH PRESTON Study Date: 10/10/2017 08:53 AM BP: 143/80 mmHg * Patient Location: [facility]\S\N280\S\2 HR: 61 * : 1945 (M/d/yyyy) Gender: Female Height: 62 in * Age: 72 yrs Ethnicity: CA Weight: 160 lb * Ordering Physician: Ramsey No * Referring Physician: Self, Referred * Performed By: Shawna Ramirez RDCS * * Reason For Study: Chest Pain * BSA: 1.7 m2 * The study was technically limited. * Grossly normal valvular structure and function. * -- Conclusions -- * The study was technically limited. * The left ventricle is grossly normal size. * Ejection Fraction = 55-60%. * Left ventricular systolic function is normal. * The right ventricular systolic function is normal. * Grossly normal valvular structure and function. Procedure Details * A complete two-dimensional transthoracic echocardiogram was performed (2D, M-mode, Doppler and color flow Doppler). * The study was technically difficult. * The study was technically difficult, but visualization was adequate with the administration of Definity ultrasound contrast. * Patient developed back pain post Definity infusion. * A contrast injection of Definity was performed to improve assessment of LV function. * Contrast was injected into an intravenous site in the left arm. * One vial of Definity ultrasound contrast was diluted in normal saline to a total volume of 10 ml. A total of '3' ml of solution was administered during imaging. * Lot # [id number] of Definity utilized for procedure. * Expiration date 1Apr19. * The attending nurse who injected the contrast agent was Hamilton Lombardi RN. Left Ventricle * The left ventricle is grossly normal size. * There is normal left ventricular wall thickness. * Ejection Fraction = 55-60%. * Left ventricular systolic function is normal. * The left ventricular wall motion is normal. Right Ventricle * The right ventricle is grossly normal size. * The right ventricular systolic function is normal. Atria * The left atrial size is normal. * Right atrial size is normal. * The interatrial septum is intact with no evidence for an atrial septal defect. Mitral Valve * The mitral valve is grossly normal. * Significant mitral regurgitation is absent. Tricuspid Valve * The tricuspid valve is not well visualized, but is grossly normal. * Significant tricuspid regurgitation is absent. Aortic Valve * Aortic valve sclerosis mild, without significant aortic valvular stenosis. * No hemodynamically significant valvular aortic stenosis. * There is no significant aortic regurgitation. Pulmonic Valve * The pulmonic valve is not well visualized. Great Vessels * The aortic root and proximal ascending aorta are normal sized. Pericardium/Pleural * There is no pericardial effusion. MMode 2D Measurements and Calculations IVSd 1.4 cm IVSs 1.5 cm LVIDd 3.3 cm LVIDs 2.3 cm LVPWd 1.3 cm LVPWs 1.9 cm IVS/LVPW 1.1 FS 28.1 % EDV(Teich) 42.8 ml ESV(Teich) 19.0 ml EF(Teich) 55.7 % EDV(cubed) 34.6 ml ESV(cubed) 12.8 ml EF(cubed) 62.9 % % IVS thick 8.3 % % LVPW thick 46.1 % LV mass(C)d 145.9 grams LV mass(C)dI 83.9 grams/m\S\2 LV mass(C)s 146.0 grams LV mass(C)sI 84.0 grams/m\S\2 SV(Teich) 23.8 ml SI(Teich) 13.7 ml/m\S\2 SV(cubed) 21.8 ml SI(cubed) 12.5 ml/m\S\2 Ao root diam 2.8 cm Ao root area 6.4 cm\S\2 ACS 1.6 cm LA dimension 4.0 cm LA/Ao 1.4 LVAd ap4 24.4 cm\S\2 LVLd ap4 7.6 cm EDV(MOD-sp4) 63.1 ml EDV(sp4-el) 66.3 ml LVAs ap4 14.2 cm\S\2 LVLs ap4 7.2 cm ESV(MOD-sp4) 24.3 ml ESV(sp4-el) 23.5 ml EF(MOD-sp4) 61.5 % EF(sp4-el) 64.5 % LVAd ap2 26.1 cm\S\2 LVLd ap2 8.2 cm EDV(MOD-sp2) 68.4 ml EDV(sp2-el) 71.0 ml LVAs ap2 16.7 cm\S\2 LVLs ap2 7.6 cm ESV(MOD-sp2) 30.3 ml ESV(sp2-el) 31.1 ml EF(MOD-sp2) 55.7 % EF(sp2-el) 56.2 % LVLd %diff 6.5 % EDV(MOD-bp) 67.9 ml LVLs %diff 5.3 % ESV(MOD-bp) 28.0 ml EF(MOD-bp) 58.8 % SV(MOD-sp4) 38.8 ml SI(MOD-sp4) 22.3 ml/m\S\2 SV(MOD-sp2) 38.1 ml SI(MOD-sp2) 21.9 ml/m\S\2 SV(MOD-bp) 40.0 ml SI(MOD-bp) 23.0 ml/m\S\2 SV(sp4-el) 42.7 ml SI(sp4-el) 24.6 ml/m\S\2 SV(sp2-el) 39.9 ml SI(sp2-el) 23.0 ml/m\S\2 Doppler Measurements and Calculations MV E max rosa 77.5 cm/sec MV A max rosa 109.2 cm/sec MV E/A 0.71 MV dec time 0.37 sec Ao V2 max 142.3 cm/sec Ao max PG 8.1 mmHg Ao max PG (full) 4.1 mmHg LV V1 max PG 4.0 mmHg LV V1 max 99.9 cm/sec PA V2 max 81.5 cm/sec PA max PG 2.7 mmHg TR max rosa 176.0 cm/sec
[2017-10-10 16:07] VITALS: BP 156/66; PULSE 68; TEMP 36.8; O2SAT 96
--- NOTE | 2017-10-10 17:48 | Progress Note ---
Progress Note Date of Service Oct 10, 2017. Progress Note Subjective: Today after the echocardiogram, the patient appeared to have reaction to the contrast that was given to the patient for transthoracic echocardiogram of the heart with the possible correlated reaction as back pain. This lasted for 5 to 10 minutes before self resolution without further interventions or events. Otherwise, patient generally comfortable and seen generally in the bed Physical Exam General: no acute distress for rest of the day Lungs: CTABL, breathing on room air, no accessory muscle use Heart: regular rate, no murmur Abdomen: soft, nontender, + bowel sounds Extremities: no lower extremity edema, there is palpable and tender nodule under axilla bilaterally Atypical chest pain -troponins negative x 3, no telemetry events -EKG has conduction abnormality with a left anterior hemiblock -back pain reaction to Definity dye for the transthoracic echo -no apparent wall motion defects noted in transthoracic echo -patient evaluated by cardiology service and will have Lexiscan Cardiolite ( stress test) study tomorrow to screen for coronary artery disease Dyspnea -cardiac workup as above History of breast cancer in the past -D-dimer is negative -CXR no acute cardiopulmonary disease and there is presence of stable right upper lobe nodule -upper extremity ultrasound of palpable axillary nodules: Each axilla, there are circumscribed densities with echogenic margins. The structures are isoechoic to adjacent fat. The right density measures 24 mm in long axis. Left density measures 22 mm in long axis. The structures likely represent fatty replaced lymph nodes History of Anxiety -Continue home medication of Xanax Diabetes Mellitus on insulin -uses short acting insulin of 19 units qAM, will use sliding scale insulin for short acting coverage instead while in the hospital -uses long acting insulin 36 units qAM and 24 units qHs of Lantus, continue -check HbA1c and lipid panel Electrolytes and other endocrine -monitor potassium and magnesium -TSH normal Peripheral artery disease as per patient -continue daily aspirin History of arthritis DVT ppx: SCD
[2017-10-10 17:57] VITALS: BP 161/78; PULSE 70; TEMP 36.7; O2SAT 94
[2017-10-10] MEDS: INSULIN GLARGINE SOLOSTAR 100 UNITS/ML 3 ML PEN SC SCH (21:15)
[2017-10-10] MEDS: LISINOPRIL 40 MG TAB PO SCH (21:15)
[2017-10-10] MEDS: ASPIRIN 81 MG ECTAB PO SCH (21:15)
[2017-10-10] MEDS: ALPRAZOLAM 0.5 MG TAB PO PRN (21:28)
[2017-10-11] VITALS (10 sets, daily range): BP systolic 118–174; BP diastolic 62–81; PULSE 63–71; TEMP 36.4–37; O2SAT 90–97
[2017-10-11 06:40] LABS: HEMOGLOBIN A1C 7.1 % (4.5-5.6)
[2017-10-11] MEDS: HYDROCHLOROTHIAZIDE 25 MG TAB PO SCH ×2 (07:25→07:41)
[2017-10-11] MEDS: ENOXAPARIN 40 MG/0.4 ML SYR SQ SCH (07:25)
[2017-10-11] MEDS ORDERED: NURSING VERBAL MED ORDER ONE (07:45)
[2017-10-11] MEDS: INSULIN ASPART 100 UNITS/ML 3 ML PEN SC SCH ×3 (07:52→17:26)
[2017-10-11 08:23] LABS: ALBUMIN 3.4 gm/dl (3.4-5.0); CALCIUM 9.2 mg/dl (8.5-10.1); CREATININE 0.6 mg/dl (0.60-1.20); POTASSIUM 3.7 mmol/L (3.5-5.1); TOTAL PROTEIN 6.9 gm/dl (6.4-8.2)
[2017-10-11] MEDS ORDERED: INSULIN GLARGINE SOLOSTAR 100 UNITS/ML 3 ML PEN SC SCH (09:00)
[2017-10-11] MEDS ORDERED: REGADENOSON 0.4 MG/5 ML SYR ONE (09:30)
[2017-10-11] MEDS ORDERED: HYDROCHLOROTHIAZIDE 25 MG TAB PO SCH (12:00)
--- NOTE | 2017-10-11 14:31 | MYOCARDIAL PERFUSION SCAN ---
Lexiscan Cardiolite stress test HISTORY: The patient is a 72-year-old female admitted with atypical chest pain. PROCEDURE: The patient received 27.6 mCi of intravenous technetium-99m sestamibi intravenously at 12:30 p.m. on 10/11/2017. Thirty minutes following the injection, imaging of the heart was performed in multiple projections. For the resting portion of the study, the patient received 8.6 mCi of intravenous technetium-99m sestamibi intravenously at 11:03 a.m. One hour following this injection, imaging of the heart was performed in the same projections. For the stress portion of the study, the patient received a Lexiscan dose of 0.4 mg intravenously. There were no significant EKG changes during or following stress. The baseline EKG showed a sinus rhythm with left anterior hemiblock. The patient had no symptoms that would suggest angina during the study. When comparing the rest to stress sestamibi scans, there appears to be homogeneous perfusion throughout the myocardium on both the rest and stress images. Gated analysis reveals normal left ventricular wall motion and systolic function. The estimated left ventricular ejection fraction is 63%. CONCLUSION: Overall, this Lexiscan Cardiolite stress test is negative for ischemia and denotes a low probability for hemodynamically significant coronary artery disease.
--- NOTE | 2017-10-11 16:51 | Progress Note ---
Internal Med Progress Note Date of Service: Oct 11, 2017. Provider Documentation: SUBJECTIVE: Patient had nuclear stress test without events. Patient's had negative stress test results. Patient to be discharged OBJECTIVE: Physical Exam General: no acute distress for rest of the day Lungs: CTABL, breathing on room air, no accessory muscle use Heart: regular rate, no murmur Abdomen: soft, nontender, + bowel sounds Extremities: no lower extremity edema, there is palpable nodule under axilla bilaterally ASSESSMENT & PLAN: Atypical chest pain/pressure/sensation -troponins negative x 3, no telemetry events -EKG has conduction abnormality with a left anterior hemiblock -back pain reaction to Definity dye for the transthoracic echo -echocardiogram The study was technically limited. The left ventricle is grossly normal size. Ejection Fraction = 55-60%. Left ventricular systolic function is normal. The right ventricular systolic function is normal. Grossly normal valvular structure and function. -patient evaluated by cardiology service on 10/10/17 and had Lexiscan Cardiolite ( stress test) on 10/11/17 that was negative Dyspnea / History of breast cancer in the past / tingling sensation down upper extremities -D-dimer is negative -CXR no acute cardiopulmonary disease and there is presence of stable right upper lobe nodule -cardiac workup has been negative -potassium and magnesium have generally been normal, TSH normal -upper extremity ultrasound of palpable axillary nodules: Each axilla, there are circumscribed densities with echogenic margins. The structures are isoechoic to adjacent fat. The right density measures 24 mm in long axis. Left density measures 22 mm in long axis. The structures likely represent fatty replaced lymph nodes History of Anxiety -Continue home medication of Xanax Diabetes Mellitus on insulin -continue home insulin therapy Peripheral artery disease as per patient -continue daily aspirin DISCHARGE INSTRUCTIONS 10/12/2017 11:00 AM Maxine Gutierrez MD General Surgery, [facility] 10/13/2017 11:30 AM [email or web address], [facility] 10/14/2017 3:10 PM Michi Melchor DO [facility] (manager application development Dr. Greenfield suggested possible outpatient event monitor for 10 days to 2 weeks as she may be experiencing symptoms due to arrhythmia such as atrial fibrillation) Patient can call [facility] appointment scheduling [phone] to set up evaluation with cardiology clinic if this is still indicated 10/18/2017 8:30 AM [facility], [facility] Vital Signs: Date Time Temp Pulse Resp B/P (MAP) Pulse Ox O2 Delivery O2 Flow Rate FiO2 10/11/17 16:00 Room Air 10/11/17 15:04 36.6 71 18 118/69 (85) 90 10/11/17 11:29 37.0 64 18 160/81 (107) 96 10/11/17 11:00 96 Room Air 10/11/17 09:41 68 18 167/79 (108) 97 Room Air 10/11/17 08:55 65 18 165/78 (107) 97 Room Air 10/11/17 07:21 36.4 70 16 174/73 (106) 97 Room Air 10/11/17 07:00 97 Room Air 10/11/17 04:25 36.7 63 18 118/69 (85) 97 Room Air 10/11/17 04:00 Room Air 10/11/17 00:02 36.8 66 18 135/62 (86) 94 10/11/17 00:00 Room Air 10/10/17 20:00 Room Air 10/10/17 17:57 36.7 70 18 161/78 (105) 94 Room Air Lab Results: Results Past 24 Hours Test 10/10/17 20:03 10/11/17 07:19 10/11/17 07:36 10/11/17 11:26 Range/Units Bedside Glucose 163 156 170 70-90 mg/dl Sodium Level 140 136-145 mmol/L Potassium Level 3.7 3.5-5.1 mmol/L Chloride Level 109 98-107 mmol/L Carbon Dioxide Level 24 21-32 mmol/L Anion Gap 7.0 3-11 mmol/L Blood Urea Nitrogen 18 7-18 mg/dl Creatinine 0.60 0.60-1.20 mg/dl Est Creatinine Clear Calc Drug Dose 79.0 ml/min Estimated GFR () 104.8 Estimated GFR (Non- 90.4 BUN/Creatinine Ratio 29.5 10-20 Random Glucose 139 70-99 mg/dl Calcium Level 9.2 8.5-10.1 mg/dl Magnesium Level 2.1 1.8-2.4 mg/dl Total Bilirubin 0.7 0.2-1 mg/dl Aspartate Amino Transf (AST/SGOT) 57 15-37 U/L Alanine Aminotransferase (ALT/SGPT) 91 12-78 U/L Alkaline Phosphatase 72 45-117 U/L Total Protein 6.9 6.4-8.2 gm/dl Albumin 3.4 3.4-5.0 gm/dl Globulin 3.5 2.5-4.0 gm/dl Albumin/Globulin Ratio 1.0 0.9-2 Chemistry Specimen Hemolysis Test 10/11/17 13:49 10/11/17 16:20 Range/Units Bedside Glucose 138 197 70-90 mg/dl
--- NOTE | 2017-10-11 17:08 | Discharge Summary ---
Discharge Summary Date of Service Oct 11, 2017. Discharge Summary Admission Date: Oct 09, 2017 at 15:51 Discharge Date: Oct 11, 2017 Discharge Disposition: Home Principal Diagnosis: atypical chest pain, dyspnea, diabetes mellitus on insulin, EKG has left anterior hemiblock Medication Reconciliation Continued Medications: Alprazolam (Xanax) 1 Mg Tab 1 TAB PO TID PRN for Anxiety Ascorbic Acid (Vitamin C) 250 Mg Tab 250 MG PO QAM Aspirin (Aspirin Childrens) 81 Mg Chw 81 MG PO HS Cranberry (Vaccinium Macrocarp (Cranberry) 500 Mg Cap 500 MG PO QAM Cyclosporine (Ophth) (Restasis) 0.05 % Emu 1 DROPS OPB BID Fish Oil ([place]-3) 1 Ea Cap 1000 MG PO BID Hydrochlorothiazide (Hctz) 25 Mg Tab 25 MG PO QAM Insulin Aspart (Novolog Penfill) 100 Unit/Ml Inj Unknown Dose SC ACHS SLIDING SCALE Insulin Glargine (Lantus) 100 Unit/Ml Inj 36 UNITS SC QAM Insulin Glargine (Lantus) 100 Unit/Ml Inj 24 UNITS SC QPM Lisinopril (Zestril) 40 Mg Tab 40 MG PO HS Magnesium Oxide (Mag-Ox) 400 Mg Tab 400 MG PO QAM Misc Natural Products (Turmeric Curcumin) 1 Cap Cap 500 MG PO QAM Multiple Vitamins W/ Minerals (Multi For Her 50+) 1 Tab Tab 1 TAB PO QAM Naproxen (Aleve) 220 Mg Tab 220 MG PO UD Olopatadine Hcl (Patanol 0.1% Oph) 0.1 % Mariela 1 DROP OPB BID PRN for Itching Potassium (Potassium) 99 Mg Tab 99 MG PO HS Propylene Glycol (Ophth) (Systane Balance Restorati) 0.6 % Mariela 1-2 DROPS OP 2-4h PRN for Itching Discontinued Medications: Amoxicillin (Amoxil) 500 Mg Cap 2000 MG PO PRN/UD TAKE ONE HOUR PRIOR TO DENTAL APPOINTMENT Admission Information HPI (per Admitting provider): This is a patient with 2 weeks of feeling shortness of breath when walking. Dyspnea also associated with chest discomfort sensation that patient denies of having sharp pain or palpitations. But the sensation is present in middle of the chest. In instances when she feels these episodes it is while she is walking or doing household chairs. When symptoms occur they last fro up to 30 minutes. Patient denies these symptoms are triggered when is already at rest such as sitting down or when she is sleeping. But these symptoms do not occur when she purposely exerts herself such as walking on the treadmill or when she does swimming exercises such as resistance training against water. Patient reports history of anxiety but the midsternal chest symptoms are not similar to anxiety as before. Also notes that she experiences tingling sensations down both arms when she experiences chest symptoms. Patient has history of diabetes and reports of peripheral artery disease. In the ED she was given 324 mg and ED physician asked hospitalist to keep the patient in the hospital for rule out acute coronary syndrome. Physical Exam (per Admitting): General Appearance: no apparent distress Head: normocephalic, atraumatic Eyes: normal inspection, EOMI, sclerae normal ENT: normal ENT inspection, hearing grossly normal, pharynx normal Neck: supple, no JVD, trachea midline Respiratory/Chest: chest non-tender, lungs clear, normal breath sounds, no respiratory distress, no accessory muscle use Cardiovascular: regular rate, rhythm, no edema, no JVD, no murmur Abdomen/GI: normal bowel sounds, non tender, soft, no organomegaly Back: normal inspection, no CVA tenderness, no muscle spasm, normal range of motion Extremities/Musculoskelatal: normal inspection, no calf tenderness, no pedal edema, non-tender Neurologic/Psych: compliance administrator II-XII nml as tested, no motor/sensory deficits, alert , normal mood/affect, oriented x 3 Skin: normal color, warm/dry, no rash Hospital Course Atypical chest pain/pressure/sensation -troponins negative x 3, no telemetry events -EKG has conduction abnormality with a left anterior hemiblock -back pain reaction to Definity dye for the transthoracic echo -echocardiogram The study was technically limited. The left ventricle is grossly normal size. Ejection Fraction = 55-60%. Left ventricular systolic function is normal. The right ventricular systolic function is normal. Grossly normal valvular structure and function. -patient evaluated by cardiology service on 10/10/17 and had Lexiscan Cardiolite ( stress test) on 10/11/17 that was negative Dyspnea / History of breast cancer in the past / tingling sensation down upper extremities -D-dimer is negative -CXR no acute cardiopulmonary disease and there is presence of stable right upper lobe nodule -cardiac workup has been negative -potassium and magnesium have generally been normal, TSH normal -upper extremity ultrasound of palpable axillary nodules: Each axilla, there are circumscribed densities with echogenic margins. The structures are isoechoic to adjacent fat. The right density measures 24 mm in long axis. Left density measures 22 mm in long axis. 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 Discharge Instructions see above
--- NOTE | 2017-10-11 17:09 | Discharge Instructions ---
Discharge Instructions Date of Service Oct 11, 2017. Admission Reason for Admission: Chest Pain, Dyspnea Discharge Discharge Diagnosis / Problem: atypical chest pain,dyspnea,DM on insulin,left anterior hemiblock Discharge Goals Goal(s): Decrease discomfort Activity Recommendations Activity Limitations: per Instructions/Follow-up section Shower/Bathe: no limitations . Instructions / Follow-Up Instructions / Follow-Up Atypical chest pain/pressure/sensation -troponins negative x 3, no telemetry events -EKG has conduction abnormality with a left anterior hemiblock -back pain reaction to Definity dye for the transthoracic echo -echocardiogram The study was technically limited. The left ventricle is grossly normal size. Ejection Fraction = 55-60%. Left ventricular systolic function is normal. The right ventricular systolic function is normal. Grossly normal valvular structure and function. -patient evaluated by cardiology service on 10/10/17 and had Lexiscan Cardiolite ( stress test) on 10/11/17 that was negative Dyspnea / History of breast cancer in the past / tingling sensation down upper extremities -D-dimer is negative -CXR no acute cardiopulmonary disease and there is presence of stable right upper lobe nodule -cardiac workup has been negative -potassium and magnesium have generally been normal, TSH normal -upper extremity ultrasound of palpable axillary nodules: Each axilla, there are circumscribed densities with echogenic margins. The structures are isoechoic to adjacent fat. The right density measures 24 mm in long axis. Left density measures 22 mm in long axis. 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 possible outpatient event monitor for 10 days to 2 weeks as she may be experiencing symptoms due to arrhythmia such as atrial fibrillation) Patient can call [facility] appointment scheduling [phone] to set up evaluation with cardiology clinic if this is still indicated 10/18/2017 8:30 AM [facility], [place], [place] Current Hospital Diet Patient's current hospital diet: Diabetes Type 2 Diet Discharge Diet Recommended Diet: Diabetes Type 2 Diet Pending Studies Studies pending at discharge: no Laboratory Results 10/10/17 06:47 Red Blood Count 4.18, Mean Corpuscular Volume 91.9, Mean Corpuscular Hemoglobin 31.6, Mean Corpuscular Hemoglobin Concent 34.4, Mean Platelet Volume 9.9, Neutrophils (%) (Auto) 39.9, Lymphocytes (%) (Auto) 43.7, Monocytes (%) (Auto) 13.5, Eosinophils (%) (Auto) 2.7, Basophils (%) (Auto) 0.2, Neutrophils # (Auto ) 1.93, Lymphocytes # (Auto) 2.11, Monocytes # (Auto) 0.65, Eosinophils # (Auto ) 0.13, Basophils # (Auto) 0.01 10/11/17 07:36 Test 10/09/17 13:50 10/09/17 14:05 10/09/17 19:54 10/10/17 01:59 Prothrombin Time 10.9 SECONDS (9.0-12.0) Prothromb Time International Ratio 1.0 (0.9-1.1) D-Dimer 490 ug/L FEU (0-500) Estimated Average Glucose 157 mg/dl Hemoglobin A1c 7.1 % (4.5-5.6) Triglycerides Level 150 mg/dl (0-150) Cholesterol Level 191 mg/dl (0-200) HDL Cholesterol 47 mg/dl LDL Cholesterol, Calculated 114 mg/dl VLDL Cholesterol, Calculated 30 mg/dl Cholesterol/HDL Ratio 4.1 Thyroid Stimulating Hormone (TSH) 1.450 uIu/ml (0.300-4.500) Influenza Type A Antigen Neg for Influ A (NEG) Influenza Type B Antigen Neg for Influ B (NEG) Erythrocyte Sedimentation Rate 2 mm/hr (0-21) C-Reactive Protein < 0.29 mg/dl (0-0.29) Troponin I < 0.015 ng/ml (0-0.045) Test 10/10/17 06:47 10/11/17 07:36 10/11/17 16:20 White Blood Count 4.83 K/uL (4.8-10.8) Red Blood Count 4.18 M/uL (4.2-5.4) Hemoglobin 13.2 g/dL (12.0-16.0) Hematocrit 38.4 % (37-47) Mean Corpuscular Volume 91.9 fL (80-100) Mean Corpuscular Hemoglobin 31.6 pg (25-34) Mean Corpuscular Hemoglobin Concent 34.4 g/dl (32-36) Platelet Count 164 K/uL (130-400) Mean Platelet Volume 9.9 fL (7.4-10.4) Neutrophils (%) (Auto) 39.9 % Lymphocytes (%) (Auto) 43.7 % Monocytes (%) (Auto) 13.5 % Eosinophils (%) (Auto) 2.7 % Basophils (%) (Auto) 0.2 % Neutrophils # (Auto) 1.93 K/uL (1.4-6.5) Lymphocytes # (Auto) 2.11 K/uL (1.2-3.4) Monocytes # (Auto) 0.65 K/uL (0.11-0.59) Eosinophils # (Auto) 0.13 K/uL (0-0.5) Basophils # (Auto) 0.01 K/uL (0-0.2) RDW Standard Deviation 42.5 fL (36.4-46.3) RDW Coefficient of Variation 12.5 % (11.5-14.5) Immature Granulocyte % (Auto) 0.0 % Immature Granulocyte # (Auto) 0.00 K/uL (0.00-0.02) Anion Gap 7.0 mmol/L (3-11) Est Creatinine Clear Calc Drug Dose 79.0 ml/min Estimated GFR () 104.8 Estimated GFR (Non- 90.4 BUN/Creatinine Ratio 29.5 (10-20) Calcium Level 9.2 mg/dl (8.5-10.1) Magnesium Level 2.1 mg/dl (1.8-2.4) Total Bilirubin 0.7 mg/dl (0.2-1) Aspartate Amino Transf (AST/SGOT) 57 U/L (15-37) Alanine Aminotransferase (ALT/SGPT) 91 U/L (12-78) Alkaline Phosphatase 72 U/L (45-117) Total Protein 6.9 gm/dl (6.4-8.2) Albumin 3.4 gm/dl (3.4-5.0) Globulin 3.5 gm/dl (2.5-4.0) Albumin/Globulin Ratio 1.0 (0.9-2) Chemistry Specimen Hemolysis Bedside Glucose 197 mg/dl (70-90) Hemoglobin A1c Test 10/09/17 13:50 Range/Units Estimated Average Glucose 157 mg/dl Hemoglobin A1c 7.1 H 4.5-5.6 % Lipid Panel Test 10/09/17 13:50 Range/Units Triglycerides Level 150 0-150 mg/dl Cholesterol Level 191 0-200 mg/dl HDL Cholesterol 47 mg/dl Cholesterol/HDL Ratio 4.1 LDL Cholesterol, Calculated 114 mg/dl Medical Emergencies . Who to Call and When: Medical Emergencies: If at any time you feel your situation is an emergency, please call 911 immediately. . Non-Emergent Contact Non-Emergency issues call your: Primary Care Provider Call Non-Emergent contact if: you have any medication questions . . "Provider Documentation" section prepared by Ramsey No. .
== END 2017-10-11 19:17 | disposition home or self-care (01) ==
LOC: EDBD 13:21 → C.EDB 13:21 → C.MED 15:51 → ENRESERV 16:54
PROVIDERS: ADMIT Hospitalist; ATTEND Hospitalist
DX: R07.89 Other chest pain (principal); R06.09 Other forms of dyspnea; F41.9 Anxiety disorder, unspecified; E11.9 Type 2 diabetes mellitus without complications; I10 Essential (primary) hypertension; I73.9 Peripheral vascular disease, unspecified; M19.90 Unspecified osteoarthritis, unspecified site; Z90.710 Acquired absence of both cervix and uterus; Z90.10 Acquired absence of unspecified breast and nipple; Z96.659 Presence of unspecified artificial knee joint; Z87.891 Personal history of nicotine dependence; Z79.82 Long term (current) use of aspirin; Z91.040 Latex allergy status; Z88.2 Allergy status to sulfonamides; Z88.1 Allergy status to other antibiotic agents; Z88.6 Allergy status to analgesic agent; Z88.5 Allergy status to narcotic agent; Z88.8 Allergy status to other drugs, medicaments and biological substances; Z79.4 Long term (current) use of insulin; Z85.3 Personal history of malignant neoplasm of breast

== ENCOUNTER 2019-02-06 06:39 | Inpatient (IN) ==
--- NOTE | 2019-02-01 08:56 | Anesthesiology Consultation ---
Date of Service February 01, 2019 Assessment & Plan (1) Encounter for pre-operative examination: - No previous anesthesia records re: intubation. Chart Review Chart Review: Acceptable Risk for Surgery and Patient NOT seen in Pre Admission Testing Consults Requested medical (Dr. Michi Melchor (01/31/19)) Patient was seen on 01/31 by PCP to follow up from ER visit for anxiety attack, and also for pre-operative assessment. It was felt that patient was doing well over all, and per note, "Pt cleared for surgery with low likelihood of barbara- operative complications". History Surgery Operation Date: 02/06/19 08:30 Proposed Procedures p Laparoscopic Right Inguinal Hernia Repair, - Ryne Alonso MD, FACS s Open Umbilical Hernia Repair - Ryne Alonso MD, FACS Height/Weight Height: 5 ft 3 in Weight: 69.853 kg Allergies Allergy/AdvReac Type Severity Reaction Status Date / Time blue dye Allergy Unknown Unknown Verified 01/26/19 11:38 celecoxib Allergy Unknown unknown Verified 01/26/19 11:38 diphenhydramine Allergy Unknown SEE NOTES Verified 01/26/19 12:37 [From Benadryl] duloxetine Allergy Unknown Unknown Verified 01/26/19 11:38 latex Allergy Unknown REDNESS Unverified 01/26/19 11:38 linaclotide Allergy Unknown UNSURE Verified 01/26/19 11:38 meloxicam Allergy Unknown HEART Verified 01/26/19 11:38 PALPITATIONS metformin Allergy Unknown UNSURE Verified 01/26/19 11:40 nitrofurantoin Allergy Unknown muscle pain Verified 01/26/19 11:38 nylon Allergy Unknown "NYLON Verified 01/26/19 11:41 SUTURES" - RASH pneumococcal vaccine Allergy Unknown NAUSEATED Verified 01/26/19 11:38 pregabalin Allergy Unknown Unknown Verified 01/26/19 11:38 sertraline Allergy Unknown "I FELT Verified 01/26/19 11:41 STRANGE" Sulfa (Sulfonamide Allergy Unknown RASH Verified 01/26/19 11:38 Antibiotics) naproxen AdvReac Unknown UNSURE Verified 01/26/19 11:38 PAST REACTION - SEE NOTES oxycodone AdvReac Unknown ITCHING ? Verified 01/26/19 11:38 - PT NOT SURE simvastatin AdvReac Unknown leg Verified 01/26/19 11:38 cramping tapentadol [From Nucynta] AdvReac Unknown ITCHING Verified 01/26/19 11:41 INJECTABLE DYE Allergy Unknown "GUILHERME ME Uncoded 01/26/19 12:38 OFF THE BED" Medications Home Medications Medication Instructions Recorded Confirmed Last Taken Dexamethasone Nyastatin 5 ml PO QID PRN 01/26/19 01/27/19 Unknown Miralax 1 dose PO DAILY 01/26/19 01/27/19 Unknown alprazolam [Xanax] 1.5 mg PO HS 01/26/19 01/27/19 01/25/19 amoxicillin 2,000 mg PO UD PRN 01/26/19 01/27/19 Unknown aspirin [Aspir-81] 81 mg PO DAILY 01/26/19 01/27/19 01/25/19 chlorhexidine gluconate 15 ml BUCCAL UD PRN 01/26/19 01/27/19 Unknown conjugated estrogens [Premarin] 0.625 mg VAGINAL UD 01/26/19 01/27/19 Unknown cranberry 500 mg PO DAILY 01/26/19 01/27/19 Unknown echinacea 400 mg PO UD PRN 01/26/19 01/27/19 Unknown hydrochlorothiazide 12.5 mg PO QAM 01/26/19 01/27/19 01/26/19 hypertonic nasal wash 1 drp INTRANASAL DAILY 01/26/19 01/27/19 Unknown insulin aspart U-100 [Novolog 1 unit SUBCUT UD 01/26/19 01/27/19 Unknown Flexpen U-100 Insulin] insulin glargine [Lantus U-100 25 unit SUBCUT 01/26/19 01/27/19 01/25/19 Insulin] insulin glargine [Lantus U-100 30 unit SUBCUT [facility] 01/26/19 01/27/19 01/26/19 Insulin] lactobacillus combination no.4 3,000 mmu cells PO DAILY 01/26/19 01/27/19 Unknown [Probiotic] lisinopril 40 mg PO 01/26/19 01/27/19 01/25/19 loratadine 10 mg PO DAILY PRN 01/26/19 01/27/19 Unknown multivitamin 1 cap PO DAILY 01/26/19 01/27/19 Unknown olopatadine [Patanol] 1 drp OPHTHALMIC (EYE) UD PRN 01/26/19 01/27/19 Unknown omega 5-xvq-lgj-fish oil [Fish Oil] 2 cap PO DAILY 01/26/19 01/27/19 Unknown potassium chloride 20 meq PO QAM 01/26/19 01/27/19 01/26/19 propylene glycol [Systane Balance] 1 drp OPHTHALMIC (EYE) QID 01/26/19 01/27/19 Unknown turmeric root extract 500 mg PO QAM 01/26/19 01/27/19 01/26/19 Past Medical History Medical History Back problem 3 DISSINEGRATING VERTEBRAE Diabetes Diverticulitis OR DIVERTICULOSIS, PT NOT SURE Fatty liver Fibromyalgia History of anxiety ANXIETY ATTACKS..CHECKED FOR SEIZURE - NO FINDINGS (MORE THAN 3 YR AGO/[facility]) History of breast cancer History of sleep apnea DENIES CURRENT PROBLEM OR DEVICE Hypertension Memory problem OVER THE LAST YR Mild aortic stenosis ORALIA: 1.4 cm2, Ao mean P.0 Past Family History Family History Father Family history of heart attack Other Family history of bowel cancer Family history of stroke Past Surgical History Surgical History History of biopsy THYROID History of cholecystectomy History of colonoscopy History of hysterectomy History of partial knee replacement RIGHT History of partial mastectomy of right breast History of sinus surgery NODULE EROSION OF BONE /NEAR CAROTID ARTERY, NO COMPLICATIONS WITH SURGERY History of total mastectomy of right breast History of PONV History of PONV Social History Smoking Status: Never smoker Do You Dip or Chew Tobacco: No Smoking End Date: social smoker when younger Hx Alcohol Use: No Hx Substance Use: No substance use type: does not use Testing Laboratory Results Laboratory Tests 12/19/18 01/30/19 01/30/19 08:52 13:12 13:12 WBC 5.48 Hgb 14.3 Hct 41.0 Plt Count 190 Sodium 144 Potassium 3.5 Chloride 107 Carbon Dioxide 31 BUN 21 H Creatinine 0.64 Glucose 124 H Hemoglobin A1c 6.8 H Electrocardiogram Date: 01/27/19 Findings: + NSR @ (74) Sinus rhythm with premature supraventricular complexes Left axis deviation Left ventricular hypertrophy with QRS widening and repolarization abnormality When compared with ECG of 10/11/17, Premature supraventricular complexes are now present T wave inversion no longer evident in inferior leads. Chest X-Ray Date: 01/27/19 Findings: + NAD FINDINGS: Cardiac silhouette is unchanged and unremarkable. 2.0 cm right suprahilar nodule is unchanged. On CT chest from 2014 this was centrally calcified suggestive of a granuloma. No pneumothorax, pleural effusion or overt pulmonary edema. Subsegmental bibasilar opacities suggest atelectasis/scarring. Degenerative changes of the shoulders and spine. Right shoulder rotator cuff calcific tendinosis. Cholecystectomy. IMPRESSION: 1. No acute process. 2. Chronic findings as above. Echocardiogram Date: 11/22/18 EF: 55-59% The LV wall thickness is mildly increased (concentric) The left ventricular wall motion is normal The aortic valve is mildly calcified Mild aortic valve stenosis is present The aortic root and proximal ascending aorta are normal sized There is moderate mitral annular calcification Mitral stenosis is absent Significant mitral regurgitation is absent. ORALIA: 1.4 cm2, Ao mean P.0 Stress Test Date: 10/11/17 Type: nuclear (Lexiscan Cardiolite) Findings: + WNL Resting EF: 63% Overall, the Lexiscan Cardiolite stress teat is negative for ischemia and denotes a low probability for hemodynamically significant coronary artery disease.
[~2019-02-06 06:39] MED LIST changes: -ALBU18002 INH; -ALPR-385 PO; -AMOX500C3 PO; -ASCO250T4 PO; -ASPI81CH5 PO; -CHOL1CAP57 PO; +CLINDAMYCIN 900 MG / 50ML D5W IV SCH; -CRAN500C2 PO; -CYAN10004 PO; -CYCL0.052 OPB; -FLAX12003 PO; -HYDR25TA4 PO; -INSDGI SC; -INSU1INJ2 SC; -LISI40TA PO; +LR 15ML/HR IV SCH; -MAGN400T6 PO; -METF500T5 PO; -MISCCAP52 PO; -MULT-223 PO; -MULT60CA PO; -OLOP0.1S3 OPB; -OMEG10007 PO; -POTA99TA PO; -PROP1SOL OP
[2019-02-06] MEDS ORDERED: fentaNYL citrate 100 MCG/2 ML VIAL ONE (07:36)
[2019-02-06] MEDS ORDERED: DEXAMETHASONE SOD INJ 4 MG/ML VIAL ONE (07:36)
[2019-02-06] MEDS ORDERED: LIDOCAINE HCL 2% 2 ML VIAL/AMP(20MG/ML) INFIL ONE (07:36)
[2019-02-06] MEDS ORDERED: ONDANSETRON INJ 2 MG/ML 2 ML VIAL ONE (07:36)
[2019-02-06] MEDS ORDERED: PROPOFOL IV EMULSION 10 MG/ML 20 ML VIAL IV ONE (07:36)
[2019-02-06] MEDS ORDERED: SUCCINYLCHOLINE CHLORIDE 20 MG/ML 10 ML VIAL ONE (07:36)
[2019-02-06] MEDS ORDERED: PHENYLEPHRINE HCL 10 MG/ML VIAL ONE (07:36)
[2019-02-06] MEDS ORDERED: ePHEDrine sulfate 50 MG/ML AMP ONE (07:36)
[2019-02-06] MEDS ORDERED: GLYCOPYRROLATE 0.2 MG/ML VIAL ONE (07:36)
[2019-02-06] MEDS ORDERED: NEOSTIGMINE METHYLSULFATE 5 MG/5 ML SYR ONE (07:36)
[2019-02-06] MEDS ORDERED: fentaNYL citrate 100 MCG/2 ML VIAL IV PRN (08:00)
[2019-02-06] MEDS ORDERED: ONDANSETRON INJ 2 MG/ML 2 ML VIAL IV PRN ×2 (08:00→11:20)
[2019-02-06] MEDS ORDERED: ATROPINE SULFATE 0.1 MG/ML 10ML SYR IV PRN (08:00)
[2019-02-06] MEDS ORDERED: ePHEDrine sulfate 50 MG/ML AMP IV PRN (08:00)
--- NOTE | 2019-02-06 08:03 | History & Physical Bridge Note ---
Date of Service February 06, 2019 History & Physical Bridge Note I have examined the patient, reviewed the History & Physical and in the interval since the performance of the History & Physical I have noted the following changes of clinical significance: no changes noted
[2019-02-06] MEDS ORDERED: LIDOCAINE HCL 1% 20 ML VIAL ONE (08:26)
[2019-02-06] MEDS ORDERED: CEFAZOLIN 250 MG/ML 1 GM VIAL ONE (08:26)
[2019-02-06] MEDS ORDERED: BUPIVACAINE 0.5 % 5 MG/1 ML MPF 30ML VIAL ONE (08:26)
[2019-02-06] MEDS ORDERED: ACETAMINOPHEN 1,000 MG/100 ML VIAL IV STA (10:02)
--- NOTE | 2019-02-06 10:02 | Operative Report ---
Post Operative Report Pre & Post Diagnosis Operation Date: 02/06/19 08:30 Pre-Op Diagnosis: Right Inguinal Hernia, Umbilical Hernia Post-Op Diagnosis: Right Inguinal Hernia, Umbilical Hernia, large lipoma, small bowel adhesions Procedure Operation Date: 02/06/19 08:30 Actual Procedures p Right Laparoscopic Inguinal Hernia Repair(Right) - Ryne Alonso MD, FACS s Open Umbilical Hernia Repair(Not Applicable) - Ryne Alonso MD, FACS enterolysis Surgeon Ryne Alonso MD, FACS Rivet Sorter Crista Mott Estimated Blood Loss 10 Findings Consistent with Post-Op Diagnosis Specimens none Description of Procedure see dictation I attest to the content of the Intraoperative Record and any orders documented therein. Any exceptions are noted below.
--- NOTE | 2019-02-06 10:58 | Anesthesiology Progress Note ---
Date of Service February 06, 2019 Anesthesia Post Procedure Vital Signs Vital Signs: Temp Pulse Pulse Resp BP Pulse Ox 02/06/19 10:50 97.7 F 71 16 161/69 H 94 02/06/19 10:40 72 16 159/68 H 96 02/06/19 10:30 70 16 166/75 H 98 02/06/19 10:21 97.5 F L 88 16 172/87 H 98 02/06/19 07:20 97.9 F 63 18 177/80 H 98 Pain Intensity Abdomen: Pain Intensity: 2 Transfer of Care Handoff Completed per policy Notes Mental Status: alert / awake / arousable and participated in evaluation Patient Amnestic to Procedure: Yes Nausea / Vomiting: adequately controlled Pain: adequately controlled Airway Patency, RR, SpO2: stable & adequate BP & HR: stable & adequate Hydration State: stable & adequate Anesthetic Complications: no major complications apparent and Pt Satisfied with anesthetic care
[2019-02-06] MEDS ORDERED: ACETAMINOPHEN 325 MG TAB PO PRN (11:20)
[2019-02-06] MEDS ORDERED: PROMETHAZINE HCL 12.5 MG in SODIUM CHLORIDE 0.9% 50 ML IV PRN (11:20)
[2019-02-06] MEDS ORDERED: HYDROmorphone INJ 0.5 MG/0.5 ML SYR IV PRN (11:20)
[2019-02-06] MEDS ORDERED: HYDROCODONE/ACETAMOPHEN 5/325MG TAB PO PRN ×2 (11:20)
[2019-02-06] MEDS ORDERED: SODIUM CHLORIDE 0.9% 1000ML 1,000 ML IV SCH (11:20)
--- NOTE | 2019-02-06 11:29 | Operative Report ---
DATE OF OPERATION: 02/06/2019 NAME OF OPERATION: Laparoscopic right inguinal hernia repair with open umbilical hernia repair and enterolysis. PREOPERATIVE DIAGNOSIS: Right inguinal hernia. POSTOPERATIVE DIAGNOSIS: Right inguinal hernia with large lipoma and umbilical hernia and small bowel adhesions. STAFF SURGEON: Ryne Alonso MD WARPER CREELER: Kaden Mott PA-C ANESTHESIA: General. DESCRIPTION OF PROCEDURE: The patient was brought into the operating room and placed on the operating table in supine position. Pneumatic stockings, orogastric tube were placed. Her abdomen was prepped and draped in usual fashion. My instruction assistant principal helped with prepping, draping, repair of the hernias, lysis of adhesions and closure of the wounds. Initially, 0.5% plain Marcaine was used to anesthetize all incisions. Incision was made above the umbilicus, carrying dissection down to the hernia sac. The sac was opened. I was able to place a Veress needle and produce pneumoperitoneum. An 11-mm port was placed, but this was leaking, therefore a balloon cannula was placed. A 5-mm port was placed on the left lateral position under visualization. The patient did have significant adhesions of the small bowel and omentum to the prior incision in the midline. It was required to take these down prior to placing a right-sided 5-mm port under visualization. The enterolysis was performed and then examination of the right lower quadrant. There was no evidence of hernia in the left lower quadrant. She did not have a large hernia in the right lower quadrant and I suspected a relatively large lipoma. We took the peritoneum down above the area of the defect from medial to lateral being careful to identify the inferior epigastric vessels. I was able to identify the round ligament, which was transected using 5-mm clips on both ends. The lipoma then was brought out of the internal ring and it was very large. Most of her defect was from the lipoma. At this point, a medium size piece of 3DMax mesh was placed into the abdomen and into the defect. It covered the defect very well. It was secured superior to the inguinal ligament using absorbable tacks. The peritoneum was then brought up over the mesh and secured using the absorbable tacks. We examined the small bowel with irrigation and there were no significant serotomies. At this point, all ports were removed. The umbilical hernia, which was approximately 1.5 cm was closed using interrupted #1 Ethibond suture. The skin was then reapproximated, all incisions using 4-0 Prolene suture. Dressings applied and patient transferred to recovery room in stable condition. I attest to the content of the Intraoperative Record and any orders documented therein. Any exception s are noted below.
--- NOTE | 2019-02-06 12:25 | Hospitalist Consultation ---
Date of Consultation February 06, 2019 Assessment & Plan (1) H/O umbilical hernia repair: (2) H/O right inguinal hernia repair: This is a 74yo F with a PMH of DM II, OUMOU, undifferentiated connective tissue disease, fibromyalgia and other medical problems listed below who is POD #0 s/p R laparoscopic inguinal hernia repair and open umbilical hernia repair with enterolysis by Dr. Alonso. -POD #0 s/p R laparoscopic inguinal hernia repair and open umbilical hernia repair with enterolysis by Dr. Alonso -Pt is doing well post-operatively -Tolerating clear liquid diet -Per gen surg for pain control, wound care, anticoagulation and activities -Monitor H&H, continue incentive spirometry -Nuha schulz ordered for temp of 35.4 C. Continue to closely monitor (3) Diabetes mellitus, type II: A1c of 6.8 in December 2018 -Took 15u lantus this morning -Hold home agents -Lantus and novolog sliding scale while in-patient -BSG AC HS (4) Hypertension: Mildly elevated at 156/73 -Holding hctz for now due to patient appearing dry clinically -Continue home lisinopril (5) Generalized anxiety disorder: Continue Buspar PRN, Xanax HS (6) Fibromyalgia: Currently pain free DVT Ppx: SQ heparin, per primary service PCP: Tona Melchor Dispo: Per primary service Patient seen in collaboration with Dr. Matias. Please see addendum. Thank you for this consultation. We will follow the patient with you during their hospital stay. You can [facility] via pager @ [phone]. Supervising Physician Co-Signing Physician Notes Patient is a 74-year-old female with history of fibromyalgia, hypertension, diabetes mellitus on chronic insulin therapy, peripheral artery disease and other problems was seen and examined postop after having laparoscopic right inguinal hernia repair and umbilical hernia repair by Dr. Alonso. Patient is lethargic postop. Denies any chest pain, shortness of breath, dizziness, nausea. States having mild right groin discomfort. Offers no other complaints. On exam patient is moderately built and nourished, normocephalic atraumatic, lungs are clear to auscultation, S1-S2, faint systolic murmur, abdomen soft, nontender, surgical sites in dressing, grossly no focal neurological deficits, no pedal edema. S/P Right Inguinal hernia and Umbilical hernia Repair. POD #0. Postoperative state. On clear liquid diet, advance as tolerated. Bowel regimen to prevent constipation. Monitor for postop anemia. Agree with nuha schulz for hypothermia. On heparin SQ for DVT prophylaxis. Hold hydrochlorothiazide as patient is clinically dehydrated. Monitor blood glucose levels, continue insulin therapy. Resume aspirin tomorrow if okay with surgery given history of peripheral artery disease. I personally reviewed the record. Patient is interviewed and examined at bedside. Patient's care is coordinated with Veronica Bowling PA-C. Please refer to the documentation above for details of patient's presentation and for discussion of other issues. History of Present Illness Reason for Consultation: post op medical mgmt Attending Physician: Ryne Alonso MD, [facility] History of Present Illness This is a 74yo F with a PMH of DM II, OUMOU, undifferentiated connective tissue disease, fibromyalgia and other medical problems listed below who is POD #0 s/p R laparoscopic inguinal hernia repair and open umbilical hernia repair with ente rolysis by Dr. Alonso. Patient is feeling well post-operatively. Denies any fever, chills, lightheadedness, visual changes, chest pain, SOB, nausea, vomiting, abdominal pain, dysuria or hematuria. Has not eaten or passed flatus since surgery. Follows with Dr. Melchor for primary care. Has DM II and took 15 units of lantus this morning before surgery. Allergies Allergy/AdvReac Type Severity Reaction Status Date / Time blue dye Allergy Unknown Unknown Verified 02/06/19 07:07 celecoxib Allergy Unknown unknown Verified 02/06/19 07:07 diphenhydramine Allergy Unknown SEE NOTES Verified 02/06/19 07:07 [From Benadryl] duloxetine Allergy Unknown Unknown Verified 02/06/19 07:07 latex Allergy Unknown REDNESS Unverified 02/06/19 07:07 linaclotide Allergy Unknown UNSURE Verified 02/06/19 07:07 meloxicam Allergy Unknown HEART Verified 02/06/19 07:07 PALPITATIONS metformin Allergy Unknown UNSURE Verified 02/06/19 07:07 nitrofurantoin Allergy Unknown muscle pain Verified 02/06/19 07:07 nylon Allergy Unknown "NYLON Verified 02/06/19 07:07 SUTURES" - RASH pneumococcal vaccine Allergy Unknown NAUSEATED Verified 02/06/19 07:07 pregabalin Allergy Unknown Unknown Verified 02/06/19 07:07 sertraline Allergy Unknown "I FELT Verified 02/06/19 07:07 STRANGE" Sulfa (Sulfonamide Allergy Unknown RASH Verified 02/06/19 07:07 Antibiotics) bee venom protein (honey bee) Allergy Unknown Verified 02/06/19 07:07 ciprofloxacin [From Cipro] Allergy Unknown Verified 02/06/19 07:07 Iodinated Contrast- Oral and AdvReac Intermediate "GUILHERME ME Verified 02/06/19 12:09 IV Dye OFF THE BED" naproxen AdvReac Unknown UNSURE Verified 02/06/19 07:07 PAST REACTION - SEE NOTES oxycodone AdvReac Unknown ITCHING ? Verified 02/06/19 07:07 - PT NOT SURE simvastatin AdvReac Unknown leg Verified 02/06/19 07:07 cramping tapentadol [From Nucynta] AdvReac Unknown ITCHING Verified 02/06/19 07:07 Home Medications Home Medications Medication Instructions Recorded Confirmed Type Dexamethasone Nyastatin 5 ml PO QID PRN 01/26/19 02/06/19 History Miralax 1 dose PO DAILY 01/26/19 02/06/19 History alprazolam [Xanax] 1.5 mg PO HS 01/26/19 01/27/19 History amoxicillin 2,000 mg PO UD PRN 01/26/19 02/06/19 History aspirin [Aspir-81] 81 mg PO DAILY 01/26/19 01/27/19 History chlorhexidine gluconate 15 ml BUCCAL UD PRN 01/26/19 02/06/19 History conjugated estrogens [Premarin] 0.625 mg VAGINAL UD 01/26/19 02/06/19 History cranberry 500 mg PO DAILY 01/26/19 02/06/19 History echinacea 400 mg PO UD PRN 01/26/19 02/06/19 History hydrochlorothiazide 12.5 mg PO QAM 01/26/19 01/27/19 History hypertonic nasal wash 1 drp INTRANASAL DAILY 01/26/19 02/06/19 History insulin aspart U-100 [Novolog 1 unit SUBCUT UD 01/26/19 02/06/19 History Flexpen U-100 Insulin] insulin glargine [Lantus U-100 25 unit SUBCUT HS 01/26/19 01/27/19 History Insulin] insulin glargine [Lantus U-100 30 unit SUBCUT QAM 01/26/19 01/27/19 History Insulin] lactobacillus combination no.4 3,000 mmu cells PO DAILY 01/26/19 02/06/19 History [Probiotic] lisinopril 40 mg PO DAILY 01/26/19 02/06/19 History loratadine 10 mg PO DAILY PRN 01/26/19 02/06/19 History multivitamin 1 cap PO DAILY 01/26/19 02/06/19 History olopatadine [Patanol] 1 drp OPHTHALMIC (EYE) UD PRN 01/26/19 02/06/19 History omega 4-yka-roz-fish oil [Fish Oil] 2 cap PO DAILY 01/26/19 02/06/19 History potassium chloride 20 meq PO QAM 01/26/19 01/27/19 History propylene glycol [Systane Balance] 1 drp OPHTHALMIC (EYE) QID 01/26/19 02/06/19 History turmeric root extract 500 mg PO QAM 01/26/19 01/27/19 History buspirone 5 mg PO BID PRN 02/06/19 02/06/19 History cyclosporine [Restasis] 1 drp OPHTHALMIC (EYE) Q12H 02/06/19 02/06/19 History Patient History Medical History Generalized anxiety disorder (Chronic) Diabetes mellitus, type II (Chronic) Mild aortic stenosis (Chronic) ORALIA: 1.4 cm2, Ao mean P.0 Hypertension (Chronic) Fibromyalgia (Chronic) Back problem (Chronic) 3 DISSINEGRATING VERTEBRAE Fatty liver (Chronic) History of sleep apnea (Chronic) DENIES CURRENT PROBLEM OR DEVICE Surgical History History of cholecystectomy (Chronic) History of hysterectomy (Chronic) History of sinus surgery (Chronic) NODULE EROSION OF BONE /NEAR CAROTID ARTERY, NO COMPLICATIONS WITH SURGERY History of total mastectomy of right breast (Chronic) H/O umbilical hernia repair Right Laparoscopic Inguinal Hernia Repair Open Umbilical Hernia Repair Dr. Alonso 02-06-19 S/P inguinal hernia repair Right Laparoscopic Inguinal Hernia Repair Dr. 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 Physical Exam Physical Exam: General Appearance: WD/WN, no apparent distress, resting comfortably Head: normocephalic, atraumatic Eyes: normal inspection, PERRL, EOMI ENT: hearing grossly normal, pharynx normal (dry mucous membranes) Neck: supple, no JVD, no adenopathy Respiratory/Chest: lungs clear to auscultation. No wheezes, rales or rhonci. No respiratory distress or accessory muscle use Cardiovascular: regular rate, rhythm, systolic murmur, normal peripheral pulses, no BLE edema Abdomen/GI: normal bowel sounds, soft, non-tender to palpation, several small surgical incisions on abdomen with dressings clean, dry, intact Extremities/Musculoskelatal: normal inspection, no calf tenderness, normal capillary refill, no pedal edema Neurologic/Psych: alert, normal mood/affect, oriented x 3 Skin: normal color, warm/dry Results & Data Vital Signs (Past 12 Hours) Vital Signs Temp Pulse Pulse Resp BP Pulse Ox 02/06/19 12:05 34.7 C L 60 14 156/73 H 95 02/06/19 11:31 36.8 C 67 18 151/74 H 92 02/06/19 11:05 36.3 C L 62 16 160/69 H 94 02/06/19 10:50 36.5 C 71 16 161/69 H 94 02/06/19 10:40 72 16 159/68 H 96 02/06/19 10:30 70 16 166/75 H 98 02/06/19 10:21 36.4 C L 88 16 172/87 H 98 02/06/19 07:20 36.6 C 63 18 177/80 H 98 Laboratory Results Short CBC 02/06/19 02/06/19 Range/Units 07:07 10:23 POC Glucose 124 H 183 H (70-99)
[2019-02-06] MEDS ORDERED: CARBOHYDRATES FOR HYPOGLYCEMIA PO PRN (12:32)
[2019-02-06] MEDS ORDERED: GLUCOSE 10 TABS/TUBE PO PRN (12:32)
[2019-02-06] MEDS ORDERED: GLUCAGON FOR INJ 1 MG VIAL SQ PRN (12:32)
[2019-02-06] MEDS ORDERED: DEXTROSE 50% 50 ML SYRINGE IV PRN (12:32)
[2019-02-06] MEDS ORDERED: GLUCOSE 40% GEL 15 GM TUBE PO PRN (12:32)
[2019-02-06] MEDS: INSULIN ASPART 100 UNITS/ML 3 ML PEN SC SCH ×3 (13:25→20:35)
[2019-02-06] MEDS: CLINDAMYCIN 600 MG in DEXTROSE 5% 50 ML IV SCH ×2 (15:30→23:57)
[2019-02-06] MEDS ORDERED: [UNRECOGNIZED DRUG - OTHER] SCH (16:00)
[2019-02-06] MEDS: SYSTANE BALANCE OP SCH (20:31)
[2019-02-06] MEDS: CYCLOSPORINE OP SCH (20:32)
[2019-02-06] MEDS: DOCUSATE SODIUM/SENNA 50/8.6MG TAB PO SCH (20:33)
[2019-02-06] MEDS: MAGNESIUM HYDROXIDE SUSP 30 ML UDC PO SCH (20:36)
[2019-02-06] MEDS: INSULIN GLARGINE SOLOSTAR 100 UNITS/ML 3 ML PEN SC SCH (20:37)
[2019-02-06] MEDS ORDERED: LISINOPRIL 40 MG TAB PO SCH (21:00)
[2019-02-06] MEDS: ALPRAZolam 0.5 MG TABLET PO SCH (21:46)
[2019-02-07 05:34] LABS: INR 1.2 (0.9-1.1); Prothrombin Time 11.8 Seconds (9.0-12.0)
[2019-02-07 05:50] LABS: BUN Creatinine Ratio 26.6 (10-20); Calcium 8.5 mg/dl (8.5-10.1); Creatinine Clr Calc Pharmacy 77.4 ml/min; Est GFR (African American) 103.9; Est GFR (Non-African American) 89.7; Potassium 3.8 mmol/L (3.5-5.1)
[2019-02-07 05:53] LABS: Albumin Globulin Ratio 1.1 (0.9-2); Bilirubin,Total 0.6 mg/dl (0.2-1); Globulin 2.8 gm/dl (2.5-4.0); Phosphorus 3.6 mg/dl (2.5-4.9); Total Protein 5.8 gm/dl (6.4-8.2)
[2019-02-07 06:08] LABS: Basophils # (auto) 0.01 K/uL (0-0.2); Basophils % (auto) 0.1 %; Eosinophils # (auto) 0.01 K/uL (0-0.5); Eosinophils % (auto) 0.1 %; Hematocrit (blood only) 37.4 % (37-47); Hemoglobin 12.9 g/dL (12.0-16.0); Immature Granulocytes # (auto) 0.02 K/uL (0.00-0.02); Immature Granulocytes % (auto) 0.3 %; Lymphocytes # (auto) 1.68 K/uL (1.2-3.4); Lymphocytes % (auto) 21.6 %; Mean Corpuscular Hgb Conc 34.5 g/dL (32-36); Mean Corpuscular Volume 91.4 fL (80-100); Mean Platelet Volume 10.4 fL (7.4-10.4); Monocytes # (auto) 0.74 K/uL (0.11-0.59); Monocytes % (auto) 9.5 %; Neutrophils # (auto) 5.32 K/uL (1.4-6.5); Neutrophils % (auto) 68.4 %; Platelet Count 179 K/uL (130-400); RDW Coefficient of Variation 12.6 % (11.5-14.5); RDW Standard Deviation 42.5 fL (36.4-46.3); Red Blood Count 4.09 M/uL (4.2-5.4); White Blood Count 7.78 K/uL (4.8-10.8)
--- NOTE | 2019-02-07 06:55 | Surgery Progress Note ---
Date of Service February 07, 2019 Assessment & Plan (1) H/O right inguinal hernia repair: pt had significant adhesions- await improved GI function- she is belching no flatus. Min pain, vitals stable has some bs, incisions intact adv diet, cont IV atbx- probable d/c tomorrow Subjective see a/p Results & Data Vital Signs (Past 12 Hours) Vital Signs Temp Pulse Resp BP Pulse Ox 02/07/19 03:25 36.7 C 69 16 127/67 94 02/06/19 22:50 36.6 C 69 15 138/65 94 02/06/19 19:36 36.6 C 86 18 144/66 H 96 PG Care Time/CCT Total # of Minutes Spent Total Time Spent with Patient: Total time spent is greater than 50% in coordination of care (as documented) at patient's floor/unit and/or counseling patient:
--- NOTE | 2019-02-07 08:04 | Anesthesiology Progress Note ---
Date of Service February 07, 2019 Anesthesia Post Procedure Vital Signs Vital Signs: Temp Pulse Pulse Resp BP Pulse Ox 02/07/19 07:26 36.6 C 62 18 167/71 H 94 02/07/19 03:25 36.7 C 69 16 127/67 94 02/06/19 22:50 36.6 C 69 15 138/65 94 02/06/19 19:36 36.6 C 86 18 144/66 H 96 02/06/19 15:26 36.6 C 90 18 149/74 H 92 02/06/19 14:20 36.4 C L 72 18 131/70 98 02/06/19 13:45 35.7 C L 02/06/19 13:09 35.4 C L 64 18 156/73 H 98 02/06/19 12:05 34.7 C L 60 14 156/73 H 95 02/06/19 11:31 36.8 C 67 18 151/74 H 92 02/06/19 11:05 36.3 C L 62 16 160/69 H 94 02/06/19 10:50 36.5 C 71 16 161/69 H 94 02/06/19 10:40 72 16 159/68 H 96 02/06/19 10:30 70 16 166/75 H 98 02/06/19 10:21 36.4 C L 88 16 172/87 H 98 Pain Intensity Abdomen: Pain Intensity: 1 Notes Mental Status: alert / awake / arousable Patient Amnestic to Procedure: Yes Nausea / Vomiting: adequately controlled Pain: adequately controlled Airway Patency, RR, SpO2: stable & adequate BP & HR: stable & adequate Hydration State: stable & adequate Anesthetic Complications: no major complications apparent and Pt Satisfied with anesthetic care
[2019-02-07] MEDS: INSULIN ASPART 100 UNITS/ML 3 ML PEN SC SCH ×4 (08:35→20:33)
[2019-02-07] MEDS: POTASSIUM CHLORIDE 20 MEQ TABCR PO SCH (08:35)
[2019-02-07] MEDS: SYSTANE BALANCE OP SCH ×4 (08:36→20:37)
[2019-02-07] MEDS: CYCLOSPORINE OP SCH ×2 (08:36→20:26)
[2019-02-07] MEDS: INSULIN GLARGINE SOLOSTAR 100 UNITS/ML 3 ML PEN SC SCH ×2 (08:36→20:30)
[2019-02-07] MEDS: LISINOPRIL 40 MG TAB PO SCH (08:37)
[2019-02-07] MEDS: POLYETHYLENE (MIRALAX) 17 GM PACK PO SCH (08:37)
[2019-02-07] MEDS: DOCUSATE SODIUM/SENNA 50/8.6MG TAB PO SCH ×2 (08:37→20:28)
[2019-02-07] MEDS: MAGNESIUM HYDROXIDE SUSP 30 ML UDC PO SCH ×2 (08:40→20:40)
[2019-02-07] MEDS: CLINDAMYCIN 600 MG in DEXTROSE 5% 50 ML IV SCH (08:40)
--- NOTE | 2019-02-07 08:47 | Hospitalist Progress Note ---
Date of Service February 07, 2019 Assessment & Plan (1) H/O umbilical hernia repair: (2) H/O right inguinal hernia repair: This is a 74yo F with a PMH of DM II, OUMOU, undifferentiated connective tissue disease, fibromyalgia and other medical problems listed below who is s/p R laparoscopic inguinal hernia repair and open umbilical hernia repair with enterolysis by Dr. Alonso. -POD # 1 - S/P Rt laparoscopic inguinal hernia repair and open umbilical hernia repair with enterolysis by Dr. Alonso -Diet advanced to regular by surgery. Passing flatus, no BM yet -Per gen surg for pain control, wound care, anticoagulation and activities -H & H monitoring -stable -Biju hugger was ordered for temp of 35.4 C on 02/06/19, now normalized. (3) Diabetes mellitus, type II: A1c of 6.8 in December 2018 -Hold home agents -Lantus and novolog sliding scale while in-patient -BSG AC HS (4) Hypertension: Mildly elevated at 156/73 -Held HCTZ initially --> Restarted today -Continue home lisinopril (5) Generalized anxiety disorder: -Continue Buspar PRN, Xanax HS (6) Fibromyalgia: Currently pain free DVT Ppx: SQ heparin, per primary service PCP: Tona Melchor Dispo: Per primary service Likely discharge in AM We will follow the patient with you during their hospital stay. You can reach a member of the [facility] Hospitalist Team 25/01 via pager @ [phone]. Subjective Patient is feeling better. Belching and passing flatus. No BM yet Abdominal pain is almost resolved. Tolerating diet well. No nausea, vomiting, fever, chills, chest pain. Physical Exam Physical Exam: GENERAL- AAOX3, No acute distress LUNGS- Air entry bilaterally equal. No rales, rhonchi, crackles, wheezes heard. HEART- Regular rate and rhythm. No murmurs ABDOMEN- Soft, S/P Laparoscopy ,mildly distended, Bowel sounds heard. EXTREMITIES- Good peripheral pulses, no edema Results & Data Vital Signs (Past 12 Hours) Vital Signs Temp Pulse Pulse Resp BP Pulse Ox 02/07/19 07:26 36.6 C 62 18 167/71 H 94 02/07/19 03:25 36.7 C 69 16 127/67 94 02/06/19 22:50 36.6 C 69 15 138/65 94
[2019-02-07] MEDS ORDERED: hydroCHLOROthiazide 25 MG TAB PO SCH (09:00)
[2019-02-07] MEDS: HEPARIN SOD 5,000 UNIT/0.5 ML VIAL SQ SCH ×2 (09:47→20:29)
[2019-02-07] MEDS: hydroCHLOROthiazide 25 MG TAB PO SCH (15:41)
[2019-02-07] MEDS: cephALEXin 500 MG CAP PO SCH ×2 (17:43→20:28)
[2019-02-07] MEDS: ALPRAZolam 0.5 MG TABLET PO SCH (21:47)
--- NOTE | 2019-02-08 07:06 | Discharge Summary ---
PRINCIPAL DIAGNOSIS: Right inguinal hernia and adhesions. PROCEDURE: The patient underwent laparoscopic right inguinal hernia repair with extensive enterolysis. HISTORY OF PRESENT ILLNESS: The patient is a 74-year-old female with a known right inguinal hernia and prior surgery. She was brought into the hospital on 02/06/2019 where she underwent laparoscopic right inguinal hernia repair and at that time had significant adhesions inhibiting the repair which were taken down and lysed. She has done very well and is felt stable for discharge home today to be followed in the surgical clinic next week.
[2019-02-08 07:46] VITALS: BP 144/78; TEMP 98.2; O2SAT 92
[2019-02-08 07:58] VITALS: PULSE 65
[2019-02-08] MEDS: CYCLOSPORINE OP SCH (08:02)
[2019-02-08] MEDS: INSULIN ASPART 100 UNITS/ML 3 ML PEN SC SCH (08:44)
[2019-02-08] MEDS: INSULIN GLARGINE SOLOSTAR 100 UNITS/ML 3 ML PEN SC SCH (08:48)
[2019-02-08] MEDS: cephALEXin 500 MG CAP PO SCH (08:55)
[2019-02-08] MEDS: POTASSIUM CHLORIDE 20 MEQ TABCR PO SCH (08:56)
[2019-02-08] MEDS: POLYETHYLENE (MIRALAX) 17 GM PACK PO SCH (08:57)
[2019-02-08] MEDS: SYSTANE BALANCE OP SCH (08:58)
[2019-02-08] MEDS: LISINOPRIL 40 MG TAB PO SCH (08:59)
[2019-02-08] MEDS: DOCUSATE SODIUM/SENNA 50/8.6MG TAB PO SCH (08:59)
[2019-02-08] MEDS ORDERED: hydroCHLOROthiazide 25 MG TAB PO SCH (09:00)
[2019-02-08] MEDS: HEPARIN SOD 5,000 UNIT/0.5 ML VIAL SQ SCH (09:00)
[2019-02-08] MEDS: hydroCHLOROthiazide 25 MG TAB PO SCH (09:11)
[2019-02-08] MEDS: MAGNESIUM HYDROXIDE SUSP 30 ML UDC PO SCH (09:19)
== END 2019-02-08 10:20 | disposition home health service (06) | DRG 337 ==
LOC: ASU 06:39 → 3W 06:39

== ENCOUNTER 2022-07-06 18:25 | Inpatient (IN) ==
[2022-07-06] MEDS ORDERED: PANTOprazole 80 MG in DEXTROSE 5% 100 ML IV STA (18:42)
[2022-07-06 18:54] LABS: Basophils # (auto) 0.03 K/uL (0-0.2); Basophils % (auto) 0.5 %; Eosinophils # (auto) 0.07 K/uL (0-0.50); Eosinophils % (auto) 1.2 %; Hematocrit (blood only) 39.4 % (34.1-44.9); Hemoglobin 13.6 g/dl (12.0-16.0); Immature Granulocytes # (auto) 0.02 K/uL (0.00-0.02); Immature Granulocytes % (auto) 0.4 %; Lymphocytes # (auto) 1.47 K/uL (1.2-3.4); Lymphocytes % (auto) 25.8 %; Mean Corpuscular Hemoglobin 32.1 pg (25.0-34.0); Mean Corpuscular Hgb Conc 34.5 g/dL (32.0-36.0); Mean Corpuscular Volume 92.9 fL (80.0-100.0); Mean Platelet Volume 10.7 fL (9.4-12.3); Monocytes # (auto) 0.74 K/uL (0.24-0.82); Neutrophils # (auto) 3.36 K/uL (1.4-6.5); Neutrophils % (auto) 59.1 %; Platelet Count 194 K/uL (130-400); RDW Coefficient of Variation 12.1 % (11.5-14.5); RDW Standard Deviation 41.6 fL (36.4-46.3); Red Blood Count 4.24 M/uL (3.93-5.22); White Blood Count 5.69 K/ul (4.8-10.8)
--- NOTE | 2022-07-06 19:04 | Emergency Department Note ---
Impression & Plan Hematochezia ED Provider Note Provider: Segundo Pompa MD DATE OF SERVICE: 07/06/2022 CHIEF COMPLAINT: Blood in stool HISTORY OF PRESENT ILLNESS: Patient is a 77-year-old female history of breast cancer, hypertension, arthritis presenting here today evening had the urge to go to the bathroom went to the bathroom and had a large bloody bowel movement with some abdominal cramping that caused her to slide to the floor and lay on the ground. She does not believe she lost consciousness. Denies falling. Denies any pain currently. Bright red blood per rectum reported with blood all over he r head on the floor. No history of GI bleeding reported. Is on a baby aspirin every day but no other blood thinners. Denies any significant trauma or heartburn symptoms. States she felt faint after this initially and lightheaded but this is improved some. Denies feeling shortness of breath currently. PAST MEDICAL HISTORY: As noted above MEDICATIONS: Reviewed home medications includes 81 mg aspirin SOCIAL HISTORY: Lives by herself PHYSICAL EXAM: GENERAL: alert and oriented in no acute distress on stretcher fatigued in appearance Head: normocephalic and atraumatic EYES: No injection, discharge or icterus. NECK: Trachea midline. ENT: Mucous membranes pink and moist. LUNGS: Airway patent. No retractions. Breath sounds clear with good air entry bilaterally. HEART: Regular rate and rhythm. No chest wall tenderness ABDOMEN: Soft and non-tender, without guarding or rebound. SKIN: Acyanotic, warm, dry, without rashes EXTREMITIES: Without swelling, tenderness or deformity NEUROLOGICAL: No focal deficits. No aphasia. No facial droop or slurred speech. EK bpm normal sinus rhythm with an incomplete right bundle branch block and left axis. No PVC. No acute ST segment elevation with a QTC of 490. CONTINUOUS CARDIAC MONITORING: was ordered and showed a heart rate of 70s bpm in normal sinus rhythm Patient's laboratory studies and imaging reviewed. Differential includes Diverticulosis, AVM, coagulopathy, colitis, inflammatory bowel disease, malignancy, Shannon-Starkey tear, esophagitis, peptic ulcer disease, variceal bleed, gastritis, epistaxis, fissure, hemorrhoids, as well as other pathologies. IMPRESSION/MEDICAL DECISION MAKING: Significant bout of blood per rectum. Brings in a bag soiled and bloody underwear grossly positive for blood. Benign abdomen now had some abdominal discomfort earlier. Denies a history of ulcers. Denies heartburn symptoms. Hilary ghtheaded earlier but did not suffer true trauma. Basic labs to be obtained. Likely no significant leukocytosis or anemia on initial blood work. Given a dose of Protonix although this likely is more of a lower GI issue than upper. The amounts does not seem consistent with hemorrhoidal bleeding. Is on a baby aspirin but luckily no other anticoagulants. CT scan of the abdomen pelvis without contrast given her allergy profile will be completed to exclude inflammatory findings of colitis/diverticulitis but lower suspicion given her benign abdomen at this point. Doubt intra-abdominal or pelvic bleeding again given her benign abdomen. Not hypotensive or tachycardic here. CT scan report without significant findings of colitis or diverticulitis. Negative COVID. Slight AST ALT elevation is nonspecific. BUN minimally elevated at 34. Again believe this is likely more of a lower GI source than upper but although she is not on high risk anticoagulants or hypotensive or anemic do feel given her age and the significant severity of her bleeding earlier further observation here is prudent. Patient in agreement and wishes for observation. Hospitalist contacted. DIAGNOSIS: Hematochezia DISPOSITION: Hospitalist will evaluate Patient was agreeable with this plan. Past Med/Surg History Medical History Back problem Chronic vaginitis Diabetes mellitus, type II Fatty liver Fibromyalgia Generalized anxiety disorder History of breast cancer History of hypertension History of pelvic mass History of sleep apnea Hypertension Mild aortic stenosis Osteoarthritis Right inguinal pain Surgical History H/O umbilical hernia repair (02/06/19) History of cholecystectomy History of gynecologic surgery History of hysterectomy History of sinus surgery History of total mastectomy of right breast S/P cataract surgery S/P colonoscopy S/P inguinal hernia repair (02/06/19) S/P tubal ligation Status post knee surgery Status post right partial knee replacement Family History Father Myocardial infarction Grandmother Cardiac disorder Stroke Family/Other Colorectal cancer Diabetes Hypertension Denies family history of Ovarian cancer Breast cancer Social History Smoking Status: Never smoker Hx Alcohol Use: Yes Hx Substance Use: No Preferred Language: Kiswahili Communication Ability: Effective Mechanism Assembler Required: No Beliefs That Will Affect Care: None marital status: Current Living Situation: Alone Feels Safe at Home: Yes Assistive Devices: Denture - Upper and Glasses Allergies Allergies Allergy/AdvReac Type Severity Reaction Status Date / Time blue dye Allergy Unknown Unknown Verified 07/06/22 20:32 celecoxib Allergy Unknown unknown Verified 07/06/22 20:32 diphenhydramine Allergy Unknown SEE NOTES Verified 07/06/22 20:32 [From Benadryl] duloxetine Allergy Unknown Unknown Verified 07/06/22 20:32 latex Allergy Unknown REDNESS Verified 07/06/22 20:32 linaclotide Allergy Unknown UNSURE Verified 07/06/22 20:32 meloxicam Allergy Unknown HEART Verified 07/06/22 20:32 PALPITATIONS metformin Allergy Unknown UNSURE Verified 07/06/22 20:32 nitrofurantoin Allergy Unknown muscle pain Verified 07/06/22 20:32 nylon Allergy Unknown "NYLON Verified 07/06/22 20:32 SUTURES" - RASH pneumococcal vaccine Allergy Unknown NAUSEATED Verified 07/06/22 20:32 pregabalin Allergy Unknown Unknown Verified 07/06/22 20:32 sertraline Allergy Unknown "I FELT Verified 07/06/22 20:32 STRANGE" Sulfa (Sulfonamide Allergy Unknown RASH Verified 07/06/22 20:32 Antibiotics) bee venom protein (honey bee) Allergy Unknown Verified 07/06/22 20:32 ciprofloxacin [From Cipro] Allergy Unknown Verified 07/06/22 20:32 Iodinated Contrast Media AdvReac Intermediate "GUILHERME ME Verified 07/06/22 20:32 [Iodinated Contrast- Oral OFF THE and IV Dye] BED" naproxen AdvReac Unknown UNSURE Verified 07/06/22 20:32 PAST REACTION - SEE NOTES oxycodone AdvReac Unknown ITCHING ? Verified 07/06/22 20:32 - PT NOT SURE simvastatin AdvReac Unknown leg Verified 07/06/22 20:32 cramping tapentadol [From Nucynta] AdvReac Unknown ITCHING Verified 07/06/22 20:32 Home Meds Home Medications Medication Instructions Recorded Confirmed amoxicillin 500 mg capsule 2,000 mg PO DIRECTED 07/06/22 07/06/22 aspirin 81 mg tablet,delayed 81 mg PO HS 07/06/22 07/06/22 release carboxymethylcellulose 0.5 1 drp ophthalmic (eye) DAILY PRN 07/06/22 07/06/22 %-glycerin 0.9 % eye drops Dry Eyes (Refresh Optive) conjugated estrogens 0.625 mg/gram 1 applic topical DIRECTED 07/06/22 07/06/22 vaginal cream (Premarin) cranberry 500 mg capsule 500 mg PO DAILY 07/06/22 07/06/22 cyclosporine 0.05 % eye drops in a 1 drp ophthalmic (eye) DIRECTED 07/06/22 07/06/22 dropperette (Restasis) hydrochlorothiazide 12.5 mg tablet 12.5 mg PO DAILY 07/06/22 07/06/22 insulin aspart U-100 100 unit/mL 20 - 25 unit subcut TIDM 07/06/22 07/06/22 (3 mL) subcutaneous pen (Novolog Flexpen U-100 Insulin aspart) insulin glargine 100 unit/mL 32 unit subcut AMHS 07/06/22 07/06/22 subcutaneous solution (Lantus U-100 Insulin) lactobacillus combination no.4 3 0 mmu cells PO DAILY 07/06/22 07/06/22 billion cell capsule (Probiotic) lisinopril 40 mg tablet 40 mg PO DAILY 07/06/22 07/06/22 melatonin 5 mg capsule 5 mg PO HS 07/06/22 07/06/22 multivitamin 1 tab PO DAILY 07/06/22 07/06/22 omega-3 fatty acids 1,000 mg 2,000 mg PO DAILY 07/06/22 07/06/22 capsule potassium chloride 20 mEq 20 meq PO QAM 07/06/22 07/06/22 tablet,extended release(part/cryst) sodium chloride, sodium 1 ea DIRECTED 07/06/22 07/06/22 bicarb-nasal rinse squeeze bottle with packet (Neilmed Sinus Rinse Complete with packet) turmeric root extract 500 mg 500 mg PO DAILY 07/06/22 07/06/22 capsule varenicline 0.03 mg/spray nasal 0.03 mg intranasal DAILY 07/06/22 07/06/22 spray (Tyrvaya) Results & Data (ED) Vital Signs Vital Signs - 24 hr 01/02/23 18:38 07/06/22 19:00 07/06/22 19:00 Temperature 36.6 C Temperature Source Oral Pulse Rate 74 Pulse Rate [Apical] Pulse Rhythm [Apical] Pulse Strength [Apical] Respiratory Rate 16 Respiratory Effort / Characteristics Non-Labored Spontaneous Respiratory Depth Normal Respiratory Pattern Regular Blood Pressure 148/77 H Blood Pressure [Right Arm] Blood Pressure Mean 100 Blood Pressure Mean [Right Arm] Blood Pressure Position [Right Arm] Pulse Oximetry 97 96 96 Oxygen Delivery Method Room Air Room Air Room Air Sepsis Recent Fever Within 48 Hours No Sepsis New/Unexplained Change in Mental Status N/A Sepsis Action Taken by Nursing No Action Required 07/06/22 20:40 07/06/22 21:09 07/06/22 21:09 Temperature Temperature Source Pulse Rate Pulse Rate [Apical] 74 75 Pulse Rhythm [Apical] Regular Regular Pulse Strength [Apical] Normal Normal Respiratory Rate 18 18 Respiratory Effort / Characteristics Non-Labored Non-Labored Respiratory Depth Normal Normal Respiratory Pattern Regular Regular Blood Pressure Blood Pressure [Right Arm] 142/70 H 140/72 Blood Pressure Mean Blood Pressure Mean [Right Arm] 94 94 Blood Pressure Position [Right Arm] Sitting Lying Pulse Oximetry 97 97 97 Oxygen Delivery Method Room Air Room Air Room Air Sepsis Recent Fever Within 48 Hours Sepsis New/Unexplained Change in Mental Status Sepsis Action Taken by Nursing Laboratory Data Result diagrams: 07/06/22 18:36 07/06/22 18:36 Lab Results 07/06/22 07/06/22 07/06/22 Range/Units 18:36 18:36 18:36 WBC 5.69 (4.8-10.8) K/ul RBC 4.24 (3.93-5.22) M/uL Hgb 13.6 (12.0-16.0) g/dl Hct 39.4 (34.1-44.9) % MCV 92.9 (80.0-100.0) fL MCH 32.1 (25.0-34.0) pg MCHC 34.5 (32.0-36.0) g/dL RDW Std Deviation 41.6 (36.4-46.3) fL RDW Coeff of Valente 12.1 (11.5-14.5) % Plt Count 194 (130-400) K/uL MPV 10.7 (9.4-12.3) fL Immature Gran % (Auto) 0.4 % Neut % (Auto) 59.1 % Lymph % (Auto) 25.8 % [place] % (Auto) 13.0 % Eos % (Auto) 1.2 % Baso % (Auto) 0.5 % Neut # (Auto) 3.36 (1.4-6.5) K/uL Lymph # (Auto) 1.47 (1.2-3.4) K/uL [place] # (Auto) 0.74 (0.24-0.82) K/uL Eos # (Auto) 0.07 (0-0.50) K/uL Baso # (Auto) 0.03 (0-0.2) K/uL Immature Gran # (Auto) 0.02 (0.00-0.02) K/uL PT 11.9 (9.0-12.0) Seconds INR 1.1 (0.9-1.1) APTT 23.6 (21.0-31.0) Seconds PTT Ratio 0.9 Sodium (136-145) mmol/L Potassium (3.5-5.1) mmol/L Chloride (98-107) mmol/L Carbon Dioxide (21-32) mmol/L Anion Gap (3-11) BUN (6-23) mg/dl Creatinine (0.6-1.2) mg/dl Est Cr Clr Drug Dosing ml/min Est GFR ( Amer) ml/min Est GFR (Non-Af Amer) ml/min BUN/Creatinine Ratio (10-20) Glucose (70-99(Fasting)) mg/dl Calcium (8.5-10.1) mg/dl Total Bilirubin (0.2-1.0) mg/dl AST (13-39) U/L ALT (7-52) U/L Alkaline Phosphatase (34-104) U/L Troponin I High Sens (0-14) pg/ml Total Protein (6.0-8.3) gm/dl Albumin (3.4-5.0) gm/dl Globulin (2.5-4.0) gm/dl Albumin/Globulin Ratio (0.9-2) POC Stool Occult Blood (Negative) SARS-CoV-2, RNA, NAAT (NEGATIVE) Blood Type O Positive Antibody Screen NEGATIVE Crossmatch See Detail 07/06/22 07/06/22 07/06/22 Range/Units 18:36 18:36 18:43 WBC (4.8-10.8) K/ul RBC (3.93-5.22) M/uL Hgb (12.0-16.0) g/dl Hct (34.1-44.9) % MCV (80.0-100.0) fL MCH (25.0-34.0) pg MCHC (32.0-36.0) g/dL RDW Std Deviation (36.4-46.3) fL RDW Coeff of Valente (11.5-14.5) % Plt Count (130-400) K/uL MPV (9.4-12.3) fL Immature Gran % (Auto) % Neut % (Auto) % Lymph % (Auto) % [place] % (Auto) % Eos % (Auto) % Baso % (Auto) % Neut # (Auto) (1.4-6.5) K/uL Lymph # (Auto) (1.2-3.4) K/uL [place] # (Auto) (0.24-0.82) K/uL Eos # (Auto) (0-0.50) K/uL Baso # (Auto) (0-0.2) K/uL Immature Gran # (Auto) (0.00-0.02) K/uL PT (9.0-12.0) Seconds INR (0.9-1.1) APTT (21.0-31.0) Seconds PTT Ratio Sodium 140 (136-145) mmol/L Potassium 3.9 (3.5-5.1) mmol/L Chloride 107 (98-107) mmol/L Carbon Dioxide 25 (21-32) mmol/L Anion Gap 8 (3-11) BUN 34 H (6-23) mg/dl Creatinine 1.00 (0.6-1.2) mg/dl Est Cr Clr Drug Dosing 45.3 ml/min Est GFR ( Amer) 62.5 ml/min Est GFR (Non-Af Amer) 53.9 ml/min BUN/Creatinine Ratio 34.0 H (10-20) Glucose 245 H (70-99(Fasting)) mg/dl Calcium 9.3 (8.5-10.1) mg/dl Total Bilirubin 0.5 (0.2-1.0) mg/dl AST 45 H (13-39) U/L ALT 54 H (7-52) U/L Alkaline Phosphatase 85 (34-104) U/L Troponin I High Sens 8.0 (0-14) pg/ml Total Protein 7.2 (6.0-8.3) gm/dl Albumin 4.0 (3.4-5.0) gm/dl Globulin 3.2 (2.5-4.0) gm/dl Albumin/Globulin Ratio 1.3 (0.9-2) POC Stool Occult Blood Positive A (Negative) SARS-CoV-2, RNA, NAAT NEGATIVE (NEGATIVE) Blood Type Antibody Screen Crossmatch Administered Medications Discontinued Medications Pantoprazole Sodium 80 mg/ (Dextrose) 100 mls @ 400 mls/hr IV ONE STA Stop: 07/06/22 18:56 Last Infusion: 07/06/22 19:39 Dose: 0 mls/hr Documented By: Admin: 07/06/22 19:11 Dose: 400 mls/hr Documented By: LRS Imaging Data Radiologist's Impression: Abdomen/Pelvis CT 07/06/22 18:43 CT SCAN OF THE ABDOMEN AND PELVIS WITHOUT IV CONTRAST CLINICAL HISTORY: GI bleeding. COMPARISON STUDY: Pelvic CT dated 01/03/2019. Chest CT dated 10/22/2014. TECHNIQUE: CT scan of the abdomen and pelvis is performed from the lung bases to the proximal femora. Images are reviewed in the axial, sagittal, and coronal planes. IV contrast was not administered for this examination. A dose lowering technique was utilized adhering to the principles of ALARA. CT DOSE: 608.86 mGy.cm FINDINGS: Lung bases: The heart is normal in size and without pericardial effusion. The coronary arteries and mitral annulus are calcified. A 4 mm right lower lobe pulmonary nodule on image #5 is unchanged from 2015 and of doubtful significance. The lung bases are otherwise clear noting bibasilar scarr ing/atelectasis. A small hiatal hernia is noted. The right breast is not identified and presumed surgically absent. Liver: The unenhanced liver is normal in size, contour, and attenuation. There is no intrahepatic biliary ductal dilatation. Gallbladder: Surgically absent noting clips in the gallbladder fossa. Spleen: Normal in size and attenuation. Pancreas: The unenhanced pancreas is moderately atrophic and grossly unremarkable. Adrenal glands: Unremarkable. Kidneys: The unenhanced kidneys demonstrate cortical atrophy and are without hyd ronephrosis. There are no renal calculi identified. A 1.4 cm cyst is noted in the left upper pole. Abdominal vasculature: The abdominal aorta is normal in course and caliber noting moderate to advanced atherosclerotic calcification. Bowel: There is moderate colonic diverticulosis without CT evidence of acute diverticulitis. No bowel obstruction is seen. The appendix is not identified and reported surgically absent. Peritoneum: There is no intraperitoneal free air or abdominal ascites. There is a fat-containing umbilical hernia. Lymphadenopathy: None. Pelvic viscera: The bladder is normal as visualized. The uterus is surgically absent. No adnexal lesion is seen. Skeletal structures: The skeletal structures are osteopenic. There is mild to moderate lumbosacral spondylosis. No lytic or blastic lesions are seen. IMPRESSION: 1. No acute infectious or inflammatory findings are identified in the abdomen or pelvis. 2. Colonic diverticulosis without CT evidence of acute diverticulitis. 3. Additional findings as above. ACT 112: Negative or not required by law. Electronically signed by: Fran Wharton M.D. 07/06/2022 7:16 PM Discharge Plan Visit Data Chief Complaint: GI Bleed ED Provider: Segundo Pompa Discharge Problem: Hematochezia Patient Disposition: Being Evaluated by Hospitalist Forms Stand Alone Forms: My [facility] Prescriptions Prescriptions: No Action lisinopril 40 mg tablet 40 mg PO DAILY multivitamin Tablet 1 tab PO DAILY amoxicillin 500 mg Capsule 2,000 mg PO DIRECTED Rx Instructions: TAKE PRIOR TO DENTAL PROCEDURES insulin glargine [Lantus U-100 Insulin] 100 unit/mL solution 32 unit SUBCUT AMHS omega-3 fatty acids [Fish Oil Concentrate] 1,000 mg Capsule 2,000 mg PO DAILY aspirin [Aspir-Low] 81 mg Tablet,Delayed Release (Dr/Ec) 81 mg PO HS potassium chloride 20 mEq tablet,ER particles/crystals 20 meq PO QAM Premarin 0.625 mg/gram cream 1 applic topical DIRECTED cranberry 500 mg Capsule 500 mg PO DAILY Rx Instructions: administer with meals insulin aspart U-100 [Novolog Flexpen U-100 Insulin] 100 unit/mL (3 mL) insulin pen 20 - 25 unit SUBCUT TIDM cyclosporine [Restasis] 0.05 % Dropperette 1 drp OPHTHALMIC (EYE) DIRECTED hydrochlorothiazide 12.5 mg tablet 12.5 mg PO DAILY Refresh Optive 0.5-0.9 % Drops 1 drp OPHTHALMIC (EYE) DAILY PRN (Reason: Dry Eyes) turmeric root extract 500 mg Capsule 500 mg PO DAILY Probiotic 3 billion cell Capsule 0 mmu cells PO DAILY Rx Instructions: administer with a meal Neilmed Sinus Rinse Complete Packet With Rinse Device 1 ea DIRECTED Tyrvaya 0.03 mg/spray [place], Metered, Non-Aerosol 0.03 mg INTRANASAL DAILY Rx Instructions: administer approximately 12 hours apart melatonin 5 mg Capsule 5 mg PO HS Referrals Referrals: Michi Melchor DO [Primary Care Provider] -
[2022-07-06 19:08] LABS: Albumin Globulin Ratio 1.3 (0.9-2); Bilirubin,Total 0.5 mg/dl (0.2-1.0); Calcium 9.3 mg/dl (8.5-10.1); Creatinine Clr Calc Pharmacy 45.3 ml/min; Est GFR (African American) 62.5 ml/min; Est GFR (Non-African American) 53.9 ml/min; Globulin 3.2 gm/dl (2.5-4.0); INR 1.1 (0.9-1.1); Partial Thromboplastin Ratio 0.9; Partial Thromboplastin Time 23.6 Seconds (21.0-31.0); Potassium 3.9 mmol/L (3.5-5.1); Prothrombin Time 11.9 Seconds (9.0-12.0); Total Protein 7.2 gm/dl (6.0-8.3)
--- NOTE | 2022-07-06 19:18 | CT Scan Report ---
CT SCAN OF THE ABDOMEN AND PELVIS WITHOUT IV CONTRAST CLINICAL HISTORY: GI bleeding. COMPARISON STUDY: Pelvic CT dated 01/03/2019. Chest CT dated 10/22/2014. TECHNIQUE: CT scan of the abdomen and pelvis is performed from the lung bases to the proximal femora. Images are reviewed in the axial, sagittal, and coronal planes. IV contrast was not administered for this examination. A dose lowering technique was utilized adhering to the principles of ALARA. CT DOSE: 608.86 mGy.cm FINDINGS: Lung bases: The heart is normal in size and without pericardial effusion. The coronary arteries and m itral annulus are calcified. A 4 mm right lower lobe pulmonary nodule on image #5 is unchanged from 2 015 and of doubtful significance. The lung bases are otherwise clear noting bibasilar scarring/atelec tasis. A small hiatal hernia is noted. The right breast is not identified and presumed surgically abs ent. Liver: The unenhanced liver is normal in size, contour, and attenuation. There is no intrahepatic samara iary ductal dilatation. Gallbladder: Surgically absent noting clips in the gallbladder fossa. Spleen: Normal in size and attenuation. Pancreas: The unenhanced pancreas is moderately atrophic and grossly unremarkable. Adrenal glands: Unremarkable. Kidneys: The unenhanced kidneys demonstrate cortical atrophy and are without hydronephrosis. There ar e no renal calculi identified. A 1.4 cm cyst is noted in the left upper pole. Abdominal vasculature: The abdominal aorta is normal in course and caliber noting moderate to advance d atherosclerotic calcification. Bowel: There is moderate colonic diverticulosis without CT evidence of acute diverticulitis. No bowel obstruction is seen. The appendix is not identified and reported surgically absent. Peritoneum: There is no intraperitoneal free air or abdominal ascites. There is a fat-containing umbi lical hernia. Lymphadenopathy: None. Pelvic viscera: The bladder is normal as visualized. The uterus is surgically absent. No adnexal lesi on is seen. Skeletal structures: The skeletal structures are osteopenic. There is mild to moderate lumbosacral sp ondylosis. No lytic or blastic lesions are seen. IMPRESSION: 1. No acute infectious or inflammatory findings are identified in the abdomen or pelvis. 2. Colonic diverticulosis without CT evidence of acute diverticulitis. 3. Additional findings as above. ACT 112: Negative or not required by law. Electronically signed by: Fran Wharton M.D. 07/06/2022 7:16 PM
[2022-07-06] MEDS ORDERED: MAGNESIUM HYDROXIDE SUSP 30 ML UDC PO PRN (20:52)
[2022-07-06] MEDS ORDERED: DEXTROSE 50% 50 ML SYRINGE IV PRN (20:52)
[2022-07-06] MEDS ORDERED: CARBOHYDRATES FOR HYPOGLYCEMIA PO PRN (20:52)
[2022-07-06] MEDS ORDERED: GLUCOSE 40% GEL 15 GM TUBE PO PRN (20:52)
[2022-07-06] MEDS ORDERED: GLUCOSE 10 TAB/TUBE PO PRN (20:52)
[2022-07-06] MEDS ORDERED: ALUMINUM/MAGNESIUM SUSP 30 ML UDC PO PRN (20:52)
[2022-07-06] MEDS ORDERED: GLUCAGON FOR INJ 1 MG VIAL SQ PRN (20:52)
[2022-07-06] MEDS ORDERED: LANTUS PER UNIT CHARGE SQ SCH (21:00)
[2022-07-06] MEDS ORDERED: PANTOPRAZOLE BOLUS/DRIP 1 EACH IV STA (21:04)
--- NOTE | 2022-07-06 21:06 | History & Physical Report ---
Date of Service July 06, 2022 Assessment & Plan (1) Hematochezia: Plan GI bleed Patient presents with initial dark red blood in stool followed by bright red blood and blood clots. Patient denies fever and lower belly pain. Patient does have a history of diverticulosis and colon, likely could be lower GI bleed, upper GI bleed could not be ruled out. Admitting CTAP with colonic diverticulosis without CT evidence of acute diverticulitis. FOBT positive. Admitting hemoglobin of 13.6, trend H&H every 6 hour. Blood transfusion consent obtained. Transfuse blood for hemoglobin less than 8 or symptomatic anemia. GI consult in AM. Protonix iv initiated in the ED, will continue N.p.o., IV fluids, maintain 2 wide bore IV peripheral lines. Tele metry monitoring. Hold aspirin. Make PRBC ready. IVF Other chronic medical conditions: As mentioned in HPI including diabetes ---> sliding scale insulin for diabetes, resume other home meds as able. Caution with blood pressure medication due to risks of drop in blood pressure with ongoing GI bleed. DVT prophylaxis: SCDs, GI bleed. DNR/DNI History of Present Illness Chief Complaint: Blood in the stool Primary Care Provider: Michi Melchor DO 77-year-old lady with PMH of diverticulosis of colon, FLORES, HTN, HLD, T2DM, fibromyalgia, restless leg syndrome, pseudogout, chronic pain syndrome, tremor, statin intolerance presented to our ED 1/ with complaint of blood in the stool. Per patient, at around 4 PM she had initially dark blood in her stool followed by bright red blood and blood clots. She had 3 such events. After the last events he became so weak and lightheaded that she lowered herself down to floor and was on the floor for half an hour, denies any fall or hitting head or any other parts of the body. Patient denies any fever or lower belly pain or any pain or burning with passing urine. Patient denies any prior history of GI bleed, reports having colonoscopy 4 years ago where she was told that the scope was WNL. Patient reported some mild headache around the time. Patient denied any chest pain or palpitation or sore throat or cough or other review of symptoms. Patient denies smoking/alcohol use/recreational drug use CODE STATUS DNR/DNI per my discussion with patient In the past patient worked in [employer] [her work were mostly physical in nature] Family history positive for gastrointestinal disorder in her aunt and cousin, mother had diverticulitis and colostomy, father had some heart disorder. Medications were reviewed with the patient at bedside. Patient's son James Mott was present at bedside. Plan of care discussed. Allergies Allergy/AdvReac Type Severity Reaction Status Date / Time blue dye Allergy Unknown Unknown Verified 07/06/22 20:32 celecoxib Allergy Unknown unknown Verified 07/06/22 20:32 diphenhydramine Allergy Unknown SEE NOTES Verified 07/06/22 20:32 [From Benadryl] duloxetine Allergy Unknown Unknown Verified 07/06/22 20:32 latex Allergy Unknown REDNESS Verified 07/06/22 20:32 linaclotide Allergy Unknown UNSURE Verified 07/06/22 20:32 meloxicam Allergy Unknown HEART Verified 07/06/22 20:32 PALPITATIONS metformin Allergy Unknown UNSURE Verified 07/06/22 20:32 nitrofurantoin Allergy Unknown muscle pain Verified 07/06/22 20:32 nylon Allergy Unknown "NYLON Verified 07/06/22 20:32 SUTURES" - RASH pneumococcal vaccine Allergy Unknown NAUSEATED Verified 07/06/22 20:32 pregabalin Allergy Unknown Unknown Verified 07/06/22 20:32 sertraline Allergy Unknown "I FELT Verified 07/06/22 20:32 STRANGE" Sulfa (Sulfonamide Allergy Unknown RASH Verified 07/06/22 20:32 Antibiotics) bee venom protein (honey bee) Allergy Unknown Verified 07/06/22 20:32 ciprofloxacin [From Cipro] Allergy Unknown Verified 07/06/22 20:32 Iodinated Contrast Media AdvReac Intermediate "GUILHERME ME Verified 07/06/22 20:32 [Iodinated Contrast- Oral OFF THE and IV Dye] BED" naproxen AdvReac Unknown UNSURE Verified 07/06/22 20:32 PAST REACTION - SEE NOTES oxycodone AdvReac Unknown ITCHING ? Verified 07/06/22 20:32 - PT NOT SURE simvastatin AdvReac Unknown leg Verified 07/06/22 20:32 cramping tapentadol [From Nucynta] AdvReac Unknown ITCHING Verified 07/06/22 20:32 Home Medications Medication Instructions Recorded Confirmed Type amoxicillin 500 mg capsule 2,000 mg PO DIRECTED 07/06/22 07/06/22 History aspirin 81 mg tablet,delayed 81 mg PO HS 07/06/22 07/06/22 History release carboxymethylcellulose 0.5 1 drp ophthalmic (eye) DAILY PRN 07/06/22 07/06/22 History %-glycerin 0.9 % eye drops Dry Eyes (Refresh Optive) conjugated estrogens 0.625 mg/gram 1 applic topical DIRECTED 07/06/22 07/06/22 History vaginal cream (Premarin) cranberry 500 mg capsule 500 mg PO DAILY 07/06/22 07/06/22 History cyclosporine 0.05 % eye drops in a 1 drp ophthalmic (eye) DIRECTED 07/06/22 07/06/22 History dropperette (Restasis) hydrochlorothiazide 12.5 mg tablet 12.5 mg PO DAILY 07/06/22 07/06/22 History insulin aspart U-100 100 unit/mL 20 - 25 unit subcut TIDM 07/06/22 07/06/22 History (3 mL) subcutaneous pen (Novolog Flexpen U-100 Insulin aspart) insulin glargine 100 unit/mL 32 unit subcut AMHS 07/06/22 07/06/22 History subcutaneous solution (Lantus U-100 Insulin) lactobacillus combination no.4 3 0 mmu cells PO DAILY 07/06/22 07/06/22 History billion cell capsule (Probiotic) lisinopril 40 mg tablet 20 mg PO DAILY 07/06/22 07/06/22 History melatonin 5 mg capsule 5 mg PO HS 07/06/22 07/06/22 History multivitamin 1 tab PO DAILY 07/06/22 07/06/22 History omega-3 fatty acids 1,000 mg 2,000 mg PO DAILY 07/06/22 07/06/22 History capsule potassium chloride 20 mEq 20 meq PO QAM 07/06/22 07/06/22 History tablet,extended release(part/cryst) sodium chloride, sodium 1 ea DIRECTED 07/06/22 07/06/22 History bicarb-nasal rinse squeeze bottle with packet (Neilmed Sinus Rinse Complete with packet) turmeric root extract 500 mg 500 mg PO DAILY 07/06/22 07/06/22 History capsule varenicline 0.03 mg/spray nasal 0.03 mg intranasal DAILY 01/02/23 01/02/23 History spray (Tyrvaya) Past Med/Surg History Medical History Back problem Chronic vaginitis Diabetes mellitus, type II Fatty liver Fibromyalgia Generalized anxiety disorder History of breast cancer History of hypertension History of pelvic mass History of sleep apnea Hypertension Mild aortic stenosis Osteoarthritis Right inguinal pain Surgical History H/O umbilical hernia repair (02/06/19) History of cholecystectomy History of gynecologic surgery History of hysterectomy History of sinus surgery History of total mastectomy of right breast S/P cataract surgery S/P colonoscopy S/P inguinal hernia repair (02/06/19) S/P tubal ligation Status post knee surgery Status post right partial knee replacement Family History Father Myocardial infarction Grandmother Cardiac disorder Stroke Family/Other Colorectal cancer Diabetes Hypertension Denies family history of Ovarian cancer Breast cancer Social History Smoking Status: Never smoker Hx Alcohol Use: Yes Hx Substance Use: No Preferred Language: Trinidadian Communication Ability: Effective 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 Physical Exam Physical Exam: GENERAL: Alert and oriented x3. NAD, on RA. HEENT: No pallor, no icterus. Pupils equal, round and reactive to light. Oral mucosa moist. NECK: No JVD, no neck masses. HEART: S1 and S2 heard. Regular rate and rhythm. systolic murmur at aortic area, no gallop. RESPIRATORY SYSTEM: Normal AP diameter. No accessory muscle use. No wheezing, no crackles. ABDOMEN: Soft, bowel sounds present, nontender, no distention. CENTRAL NERVOUS SYSTEM: No facial droop. Speech is clear. Obeys simple commands. Moves extremities. EXTREMITIES: No edema, no erythema seen. Results & Data Results & Data ([facility]) Vital Signs (Past 12 Hours) Vital Signs Temp Pulse Pulse Resp BP BP Pulse Ox 07/06/22 20:40 74 18 142/70 H 97 07/06/22 19:00 96 07/06/22 19:00 96 07/06/22 18:38 36.6 C 74 16 148/77 H 97 O2 Del Method 07/06/22 20:40 Room Air 07/06/22 19:00 Room Air 07/06/22 19:00 Room Air 07/06/22 18:38 Room Air
[2022-07-06] MEDS ORDERED: SODIUM CHLORIDE 0.9% 250 ML IV PRN (21:08)
[2022-07-06] MEDS: PANTOprazole 40 MG in DEXTROSE 5% 100 ML IV SCH (21:29)
[2022-07-06] MEDS: SODIUM CHLORIDE 0.9% 1000ML 1,000 ML IV SCH (21:33)
[2022-07-06] MEDS: INSULIN ASPART PER UNIT SC SCH ×2 (21:43→23:04)
[2022-07-06] MEDS ORDERED: ARTIFICIAL TEARS OP PRN (23:27)
[2022-07-07] MEDS: ACETAMINOPHEN 325 MG TAB PO PRN ×2 (01:11→06:09)
[2022-07-07 01:17] LABS: Hematocrit (blood only) 33.5 % (34.1-44.9); Hemoglobin 11.4 g/dl (12.0-16.0)
[2022-07-07] MEDS: PANTOprazole 40 MG in DEXTROSE 5% 100 ML IV SCH ×5 (02:38→22:13)
[2022-07-07] MEDS: INSULIN ASPART PER UNIT SC SCH ×5 (06:16→22:49)
[2022-07-07 07:14] LABS: Hematocrit (blood only) 33.1 % (34.1-44.9); Hemoglobin 11.2 g/dl (12.0-16.0); Mean Corpuscular Hemoglobin 31.6 pg (25.0-34.0); Mean Corpuscular Hgb Conc 33.8 g/dL (32.0-36.0); Mean Corpuscular Volume 93.5 fL (80.0-100.0); Mean Platelet Volume 10.6 fL (9.4-12.3); Platelet Count 156 K/uL (130-400); RDW Coefficient of Variation 12.1 % (11.5-14.5); RDW Standard Deviation 42.1 fL (36.4-46.3); Red Blood Count 3.54 M/uL (3.93-5.22); White Blood Count 6.83 K/ul (4.8-10.8)
[2022-07-07] MEDS ORDERED: Nursing to Pharmacy Communication SCH ×2 (07:30→09:30)
[2022-07-07 07:41] LABS: BUN Creatinine Ratio 56.9 (10-20); Calcium 8.1 mg/dl (8.5-10.1); Est GFR (African American) 102.3 ml/min; Est GFR (Non-African American) 88.3 ml/min; Magnesium 1.9 mg/dl (1.7-2.4); Phosphorus 2.8 mg/dl (2.5-4.9); Potassium 3.7 mmol/L (3.5-5.1)
[2022-07-07] MEDS ORDERED: lisinopril 20 MG TAB PO SCH ×2 (09:00→21:00)
[2022-07-07] MEDS ORDERED: lisinopril 40 MG TAB PO SCH (09:00)
[2022-07-07] MEDS ORDERED: hydroCHLOROthiazide 25 MG TAB PO SCH (09:00)
--- NOTE | 2022-07-07 09:04 | Gastrointestinal Consultation ---
Date of Consultation July 07, 2022 Assessment & Plan (1) Hematochezia: Most likely a diverticular bleed. Plan Clear liquids po. Plan for colonoscopy tomorrow by Dr. Edwards. Pt aware and agrees to plan. Supervising Physician Co-Signing Physician Notes Attg add: I interviewed and examined pt, reviewed chart and labs. Pt with painless rectal bleed. Cscopy to evaluate. History of Present Illness Reason for Consultation: GI bleed Requesting Physician: Dr. Miller Attending Physician: Karrie Fox, DO History of Present Illness Ms. Sara Mott is a 77 yr old female pt of Dr. Michi Melchor w a hx of DM2, sleep apnea, HTN, Mild aortic stenosis who is seen for rectal bleeding. Yesterday, around 4 PM, she felt some lower abd cramping pain and passed a large, loose bloody BM. This occurred two more times in the next hour and she felt lightheaded/weak and summoned EMS who brought her to [facility]. On arrival, non contrast CTAP w diverticulosis, no other issues. She has not passed any further BMs, does not currently have any abdominal pain. She denies any fevers/chills/sweats. No N/V. She tells me that she has short term memory loss but recalls that she takes an 81mg ASA daily and that she believes that she had a colonoscopy about 3 yrs ago and describes a setting that is consistent with the [place] - so likely w [facility]. Allergies Allergy/AdvReac Type Severity Reaction Status Date / Time blue dye Allergy Unknown Unknown Verified 07/06/22 20:32 celecoxib Allergy Unknown unknown Verified 07/06/22 20:32 diphenhydramine Allergy Unknown SEE NOTES Verified 07/06/22 20:32 [From Benadryl] duloxetine Allergy Unknown Unknown Verified 07/06/22 20:32 latex Allergy Unknown REDNESS Verified 07/06/22 20:32 linaclotide Allergy Unknown UNSURE Verified 07/06/22 20:32 meloxicam Allergy Unknown HEART Verified 07/06/22 20:32 PALPITATIONS metformin Allergy Unknown UNSURE Verified 07/06/22 20:32 nitrofurantoin Allergy Unknown muscle pain Verified 07/06/22 20:32 nylon Allergy Unknown "NYLON Verified 07/06/22 20:32 SUTURES" - RASH pneumococcal vaccine Allergy Unknown NAUSEATED Verified 07/06/22 20:32 pregabalin Allergy Unknown Unknown Verified 07/06/22 20:32 sertraline Allergy Unknown "I FELT Verified 07/06/22 20:32 STRANGE" Sulfa (Sulfonamide Allergy Unknown RASH Verified 07/06/22 20:32 Antibiotics) bee venom protein (honey bee) Allergy Unknown Verified 07/06/22 20:32 ciprofloxacin [From Cipro] Allergy Unknown Verified 07/06/22 20:32 Iodinated Contrast Media AdvReac Intermediate "GUILHERME ME Verified 07/06/22 20:32 [Iodinated Contrast- Oral OFF THE and IV Dye] BED" naproxen AdvReac Unknown UNSURE Verified 07/06/22 20:32 PAST REACTION - SEE NOTES oxycodone AdvReac Unknown ITCHING ? Verified 07/06/22 20:32 - PT NOT SURE simvastatin AdvReac Unknown leg Verified 07/06/22 20:32 cramping tapentadol [From Nucynta] AdvReac Unknown ITCHING Verified 07/06/22 20:32 Home Medications Medication Instructions Recorded Confirmed Type amoxicillin 500 mg capsule 2,000 mg PO DIRECTED 07/06/22 07/06/22 History aspirin 81 mg tablet,delayed 81 mg PO HS 07/06/22 07/06/22 History release carboxymethylcellulose 0.5 1 drp ophthalmic (eye) DAILY PRN 07/06/22 07/06/22 History %-glycerin 0.9 % eye drops Dry Eyes (Refresh Optive) conjugated estrogens 0.625 mg/gram 1 applic topical DIRECTED 07/06/22 07/06/22 History vaginal cream (Premarin) cranberry 500 mg capsule 500 mg PO DAILY 07/06/22 07/06/22 History cyclosporine 0.05 % eye drops in a 1 drp ophthalmic (eye) DIRECTED 07/06/22 07/06/22 History dropperette (Restasis) hydrochlorothiazide 12.5 mg tablet 12.5 mg PO DAILY 07/06/22 07/06/22 History insulin aspart U-100 100 unit/mL 20 - 25 unit subcut TIDM 07/06/22 07/06/22 History (3 mL) subcutaneous pen (Novolog Flexpen U-100 Insulin aspart) insulin glargine 100 unit/mL 32 unit subcut AMHS 07/06/22 07/06/22 History subcutaneous solution (Lantus U-100 Insulin) lactobacillus combination no.4 3 0 mmu cells PO DAILY 07/06/22 07/06/22 History billion cell capsule (Probiotic) lisinopril 40 mg tablet 40 mg PO DAILY 07/06/22 07/06/22 History melatonin 5 mg capsule 5 mg PO HS 07/06/22 07/06/22 History multivitamin 1 tab PO DAILY 07/06/22 07/06/22 History omega-3 fatty acids 1,000 mg 2,000 mg PO DAILY 07/06/22 07/06/22 History capsule potassium chloride 20 mEq 20 meq PO QAM 07/06/22 07/06/22 History tablet,extended release(part/cryst) sodium chloride, sodium 1 ea DIRECTED 07/06/22 07/06/22 History bicarb-nasal rinse squeeze bottle with packet (Animeeple Sinus Rinse Complete with packet) turmeric root extract 500 mg 500 mg PO DAILY 07/06/22 07/06/22 History capsule varenicline 0.03 mg/spray nasal 0.03 mg intranasal DAILY 07/06/22 07/06/22 History spray (Tyrvaya) Patient History Medical History Back problem Chronic vaginitis Diabetes mellitus, type II Fatty liver Fibromyalgia Generalized anxiety disorder History of breast cancer History of hypertension History of pelvic mass History of sleep apnea Hypertension Mild aortic stenosis Osteoarthritis Right inguinal pain Surgical History H/O umbilical hernia repair (02/06/19) History of cholecystectomy History of gynecologic surgery History of hysterectomy History of sinus surgery History of total mastectomy of right breast S/P cataract surgery S/P colonoscopy S/P inguinal hernia repair (02/06/19) S/P tubal ligation Status post knee surgery Status post right partial knee replacement Family History Father Myocardial infarction Grandmother Cardiac disorder Stroke Family/Other Colorectal cancer Diabetes Hypertension Denies family history of Ovarian cancer Breast cancer Social History Smoking Status: Former smoker Second Hand Exposure: No; Do You Dip or Chew Tobacco: No; Tobacco Cessation Education Requested by Patient: No Hx Alcohol Use: Yes Hx Substance Use: No Preferred Language: Tunisian Communication Ability: Effective Speech And Language Assistant Required: No Beliefs That Will Affect Care: None marital status: Current Living Situation: Alone Other Information That Helps Us Care for You: No Feels Safe at Home: Yes Safety Concerns: Feels Safe At This Time Assistive Devices: Cane and Walker Assistive Devices Comment: Partial lower dentures not here Review of Systems Review of Systems: ROS: Gen: + weakness/lightheaded - now resolved. No fevers, no weight loss Eyes: + ongoing dry eyes; No eye redness, or pain, no recent vision changes Resp: No SOB, no cough Cardio: No palpitations/irregular beats, no chest pain GI: As per HPI, otherwise (-). : Denies pain on urination Skin: No jaundice, itching or new rashes A total of 12 systems were reviewed, all others (-). Physical Exam Constitutional: WD/WN, vitals as above Eyes: PERRL, conjunctivae normal, anicteric sclerae ENMT: external ear and nose normal, oropharynx normal Neck: trachea midline, no thyromegaly Respiratory: normal respiratory effort, lungs clear to auscultation Cardiovascular: RRR, no murmur, no edema Gastrointestinal (Abdomen): normal bowel sounds, soft, nontender, no hepatosplenomegaly Musculoskeletal: no cyanosis or clubbing, extremities motor strength 5/5 Skin: no rashes, warm and dry Neurologic: PERRL, EOMI, accommodation nl, no face palsy, no dysarthria Psychiatric: A+Ox3, euthymic affect Lymphatic: no cervical or axillary lymphadenopathy Results & Data ([facility]) Vital Signs (Past 12 Hours) Vital Signs Temp Pulse Pulse Resp BP BP Pulse Ox 07/07/22 08:00 64 07/07/22 07:08 36.8 C 69 16 157/72 H 94 07/07/22 03:41 36.7 C 73 158/78 H 98 07/07/22 00:00 72 07/06/22 22:35 07/06/22 23:04 37 C 80 18 160/98 H 160/98 H 99 07/06/22 22:00 78 18 142/78 H 95 07/06/22 21:09 75 18 140/72 97 07/06/22 21:09 97 O2 Del Method 07/07/22 08:00 07/07/22 07:08 Room Air 07/07/22 03:41 Room Air 07/07/22 00:00 07/06/22 22:35 Room Air 07/06/22 23:04 Room Air 07/06/22 22:00 Room Air 07/06/22 21:09 Room Air 07/06/22 21:09 Room Air Laboratory Results WBC 6.8, Hb 11.3, Hct 33.1, Plts 156, Na 140, K 3.7, Cl 110, CO2 25, BUN 33, Cr. 0.58 T bili and alk phos are normal. AST 45, ALT 54 Diagnostic Findings Non contrast CTAP on 07/06/22: 1. No acute infectious or inflammatory findings are identified in the abdomen or pelvis. 2. Colonic diverticulosis without CT evidence of acute diverticulitis. 3. Additional findings as above.
[2022-07-07] MEDS: LANTUS PER UNIT CHARGE SQ SCH ×2 (09:19→21:37)
[2022-07-07] MEDS: POTASSIUM CHLORIDE CRTAB 20 MEQ TABCR PO SCH (09:20)
[2022-07-07] MEDS ORDERED: LAVAGE SOLUTION 4000ML PO SCH (10:30)
--- NOTE | 2022-07-07 12:39 | Electrocardiogram Report ---
Test Reason : Blood Pressure : / mmHG Vent. Rate : 076 BPM Atrial Rate : 076 BPM P-R Int : 142 ms QRS Dur : 114 ms QT Int : 436 ms P-R-T Axes : 046 -39 090 degrees QTc Int : 490 ms Poor data quality, interpretation may be adversely affected Normal sinus rhythm Left axis deviation Left ventricular hypertrophy with repolarization abnormality Prolonged QT Abnormal ECG When compared with ECG of 27-JAN-2019 20:06, Premature supraventricular complexes are no longer Present Minimal criteria for Septal infarct are no longer Present Confirmed by Nestor Salas ([id number]) on 07/07/2022 12:39:22 PM Referred By: REFERRED SELF Confirmed By:Nestor Salas
[2022-07-07 13:05] LABS: Hemoglobin 11.5 g/dl (12.0-16.0)
[2022-07-07] MEDS: SODIUM CHLORIDE 0.9% 1000ML 1,000 ML IV SCH (14:29)
--- NOTE | 2022-07-07 14:32 | Hospitalist Progress Note ---
Date of Service July 07, 2022 Assessment & Plan (1) Hematochezia: Plan: Per GI thought to be a diverticular bleed. She is doing well on the prep and has had no further bloody bowel movements. Plan for colonoscopy tomorrow by Dr. Edwards. (2) Diabetes mellitus, type II: Plan: Some hyperglycemia overnight which is more controlled this afternoon. Continue basal bolus insulin during admission. Updated A1c pending. (3) HTN (hypertension): Plan: Held diuretic therapy secondary to GI bleed and overall volume loss. Lisinopril was continued at 50% of the dose. However, this has become more elevated as the day continues and she remained stable from a GI bleed perspective. Will increase back to full 40 mg nightly for better control. Hold potassium supplementation while we are holding HCTZ. Monitor electrolytes daily. DVT prophylaxis contraindicated in setting of acute bleed. Continue SCDs DNR/DNI Disposition-pending colonoscopy in AM. Possibly could go home tomorrow. Karrie Fox DO [facility] and Anticipated Discharge Date Admission Date: July 06, 2022 Subjective 77-year-old female presented with hematochezia. No further passage of any bloody bowel movements. She denies any lightheadedness weakness, no shortness of breath or chest pain. There is no abdominal pain present. She is doing well tolerating her prep in preparation for colonoscopy tomorrow. Review of Systems Review of Systems: All systems reviewed negative except as indicated above Physical Exam Physical Exam: CONSTITUTIONAL: WNWD, vitals as above, generally well- appearing, NAD EYES: normal conjunctivae, no scleral icterus ENT: external ear and nose normal, MMM NECK: trachea midline RESPIRATORY: clear to auscultation bilaterally, no crackles, rales or wheezes, normal respiratory effort CARDIOVASCULAR: regular rate and rhythm, S1 and 2 heard without murmurs, gallops or rubs, no JVD, no peripheral edema CHEST: inspection of chest was normal GASTROINTESTINAL: soft, nontender, nondistended, no guarding MUSCULOSKELETAL: strength 5/5 throughout, head is normocephalic and atraumatic SKIN: warm and dry NEUROLOGIC: CN 2-12 grossly intact, no sensory deficit, normal cognition, norm al speech, no tremor PSYCHIATRIC: alert cooperative and oriented to person, place and time. Euthymic mood, makes good eye contact, language grossly intact, recent and remote memory grossly intact. Results & Data Results & Data ([facility]) Vital Signs (Past 12 Hours) Vital Signs Temp Pulse Pulse Resp BP Pulse Ox O2 Del Method 07/07/22 11:09 36.7 C 72 18 143/60 H 98 Room Air 07/07/22 08:00 64 07/07/22 07:08 36.8 C 69 16 157/72 H 94 Room Air 07/07/22 03:41 36.7 C 73 158/78 H 98 Room Air Laboratory Results Short CBC 07/06/22 07/07/22 07/07/22 Range/Units 18:36 00:39 06:49 WBC 5.69 6.83 (4.8-10.8) K/ul Hgb 13.6 11.4 L 11.2 L (12.0-16.0) g/dl Hct 39.4 33.5 L 33.1 L (34.1-44.9) % Plt Count 194 156 (130-400) K/uL 07/07/22 Range/Units 12:53 WBC (4.8-10.8) K/ul Hgb 11.5 L (12.0-16.0) g/dl Hct 34.0 L (34.1-44.9) % Plt Count (130-400) K/uL BMP 07/06/22 07/07/22 18:36 06:49 Sodium 140 140 Potassium 3.9 3.7 Chloride 107 110 H Carbon Dioxide 25 25 BUN 34 H 33 H Creatinine 1.00 0.58 L D Glucose 245 H 217 H Calcium 9.3 8.1 L Liver Function 07/06/22 Range/Units 18:36 Total Bilirubin 0.5 (0.2-1.0) mg/dl AST 45 H (13-39) U/L ALT 54 H (7-52) U/L Alkaline Phosphatase 85 (34-104) U/L Albumin 4.0 (3.4-5.0) gm/dl Medications Administered Current Inpatient Medications Acetaminophen (Acetaminophen 325 Mg Tab) 650 mg PO Q4H PRN PRN Reason: Pain or Fever Stop: 08/05/22 20:51 Last Admin: 07/07/22 06:09 Dose: 650 mg Al Hydrox/Mg Hydrox/Simethicone (Aluminum/Magnesium Susp 30 Ml Udc) 15 ml PO Q4H PRN PRN Reason: Dyspepsia Stop: 08/05/22 20:51 Artificial Tears (Artificial Tears) 1 drops OP DAILY PRN PRN Reason: Dry Eyes Stop: 08/05/22 23:26 Dextrose (Dextrose 50% 50 Ml Syringe) 25 - 50 ml IV UD PRN; Protocol PRN Reason: Hypoglycemia Protocol Stop: 08/05/22 20:51 Glucagon (Glucagon For Inj 1 Mg Vial) 1 mg SQ UD PRN; Protocol PRN Reason: Hypoglycemia Protocol Stop: 08/05/22 20:51 Glucose (Glucose 40% Gel 15 Gm Tube) 15 - 30 gm PO UD PRN; Protocol PRN Reason: Hypoglycemia Protocol Stop: 08/05/22 20:51 Glucose (Glucose 10 Tab/Tube) 4 - 8 tab PO UD PRN; Protocol PRN Reason: Hypoglycemia Treatment Stop: 08/05/22 20:51 Hydrochlorothiazide (Hydrochlorothiazide 25 Mg Tab) 12.5 mg PO DAILY [facility] Stop: 08/06/22 08:59 Pantoprazole Sodium 40 mg/ (Dextrose) 100 mls @ 20 mls/hr IV Q5H [facility] Stop: 08/05/22 21:29 Last Admin: 07/07/22 12:14 Dose: 8 mg/hr, 20 mls/hr Sodium Chloride (Nss 1000ml) 1,000 mls @ 65 mls/hr IV .[id number] [facility] Stop: 07/08/22 04:01 Last Admin: 07/07/22 14:29 Dose: Not Given Insulin Aspart (Insulin Aspart Per Unit) 0 units SC Q6 [facility] Stop: 08/05/22 20:59 Last Admin: 07/07/22 12:13 Dose: 12 units Insulin Glargine (Lantus Per Unit Charge) 15 units SQ BID [facility] Stop: 08/06/22 08:59 Last Admin: 07/07/22 09:19 Dose: 7 units Lisinopril (Lisinopril 20 Mg Tab) 20 mg PO HS [facility] Stop: 08/06/22 20:59 Magnesium Hydroxide (Magnesium Hydroxide Susp 30 Ml Udc) 30 ml PO Q12H PRN PRN Reason: Constipation Stop: 08/05/22 20:51 Melatonin (Melatonin 3 Mg Tab) 3 mg PO HS [facility] Stop: 08/06/22 20:59 Miscellaneous (Carbohydrates For Hypoglycemia ) 15 - 30 gm PO UD PRN PRN Reason: Hypoglycemia Protocol Stop: 08/05/22 20:51 Polyethylene Glycol/Electrolytes (Lavage Solution 4000ml) 16 dose PO TODAY@1030 [facility] Stop: 07/07/22 16:00 Last Admin: 07/07/22 11:35 Dose: 16 dose Potassium Chloride (Potassium Chloride Crtab 20 Meq Tabcr) 20 meq PO QAM [facility] Stop: 08/06/22 08:59 Last Admin: 07/07/22 09:20 Dose: 20 meq
[2022-07-07 20:09] LABS: Hematocrit (blood only) 32.4 % (34.1-44.9); Hemoglobin 11.3 g/dl (12.0-16.0)
[2022-07-07] MEDS: lisinopril 40 MG TAB PO SCH (21:38)
[2022-07-07] MEDS: MELATONIN 3 MG TAB PO SCH (21:38)
[2022-07-08] MEDS: PANTOprazole 40 MG in DEXTROSE 5% 100 ML IV SCH ×3 (03:16→17:49)
[2022-07-08] MEDS: INSULIN ASPART PER UNIT SC SCH ×4 (06:41→20:50)
[2022-07-08 07:17] LABS: Hematocrit (blood only) 31.4 % (34.1-44.9); Hemoglobin 10.8 g/dl (12.0-16.0); Mean Corpuscular Hemoglobin 31.2 pg (25.0-34.0); Mean Corpuscular Hgb Conc 34.4 g/dL (32.0-36.0); Mean Corpuscular Volume 90.8 fL (80.0-100.0); Mean Platelet Volume 11.1 fL (9.4-12.3); Platelet Count 155 K/uL (130-400); RDW Standard Deviation 39.8 fL (36.4-46.3); Red Blood Count 3.46 M/uL (3.93-5.22); White Blood Count 4.69 K/ul (4.8-10.8)
[2022-07-08 07:26] LABS: Estimated Average Glucose 163 mg/dl; Hemoglobin A1C 7.3 % (4.5-5.6)
[2022-07-08 07:37] LABS: BUN Creatinine Ratio 27.5 (10-20); Calcium 8.2 mg/dl (8.5-10.1); Creatinine Clr Calc Pharmacy 82.8 ml/min; Est GFR (African American) 106.7 ml/min; Est GFR (Non-African American) 92.1 ml/min; Magnesium 1.9 mg/dl (1.7-2.4); Potassium 3.8 mmol/L (3.5-5.1)
[2022-07-08] MEDS: POTASSIUM CHLORIDE CRTAB 20 MEQ TABCR PO SCH (08:07)
[2022-07-08] MEDS: LANTUS PER UNIT CHARGE SQ SCH ×2 (08:18→21:03)
--- NOTE | 2022-07-08 08:29 | Anesthesiology Consultation ---
Date of Service July 08, 2022 Assessment & Plan (1) Encounter for pre-operative examination: History Surgery Operation Date: 07/08/22 16:30 Proposed Procedures p Colonoscopy Dr Edwards - Hossein Ewdards MD Height/Weight Height: 5 ft 2 in Weight: 69 kg Allergies Allergy/AdvReac Type Severity Reaction Status Date / Time blue dye Allergy Unknown Unknown Verified 07/06/22 20:32 celecoxib Allergy Unknown unknown Verified 07/06/22 20:32 diphenhydramine Allergy Unknown SEE NOTES Verified 07/06/22 20:32 [From Benadryl] duloxetine Allergy Unknown Unknown Verified 07/06/22 20:32 latex Allergy Unknown REDNESS Verified 07/06/22 20:32 linaclotide Allergy Unknown UNSURE Verified 07/06/22 20:32 meloxicam Allergy Unknown HEART Verified 07/06/22 20:32 PALPITATIONS metformin Allergy Unknown UNSURE Verified 07/06/22 20:32 nitrofurantoin Allergy Unknown muscle pain Verified 07/06/22 20:32 nylon Allergy Unknown "NYLON Verified 07/06/22 20:32 SUTURES" - RASH pneumococcal vaccine Allergy Unknown NAUSEATED Verified 07/06/22 20:32 pregabalin Allergy Unknown Unknown Verified 07/06/22 20:32 sertraline Allergy Unknown "I FELT Verified 07/06/22 20:32 STRANGE" Sulfa (Sulfonamide Allergy Unknown RASH Verified 07/06/22 20:32 Antibiotics) bee venom protein (honey bee) Allergy Unknown Verified 07/06/22 20:32 ciprofloxacin [From Cipro] Allergy Unknown Verified 07/06/22 20:32 Iodinated Contrast Media AdvReac Intermediate "GUILHERME ME Verified 07/06/22 20:32 [Iodinated Contrast- Oral OFF THE and IV Dye] BED" naproxen AdvReac Unknown UNSURE Verified 07/06/22 20:32 PAST REACTION - SEE NOTES oxycodone AdvReac Unknown ITCHING ? Verified 07/06/22 20:32 - PT NOT SURE simvastatin AdvReac Unknown leg Verified 07/06/22 20:32 cramping tapentadol [From Nucynta] AdvReac Unknown ITCHING Verified 07/06/22 20:32 Medications Home Medications Medication Instructions Recorded Confirmed Last Taken amoxicillin 500 mg capsule 2,000 mg PO DIRECTED 07/06/22 07/06/22 Unknown aspirin 81 mg tablet,delayed 81 mg PO HS 07/06/22 07/06/22 Unknown release carboxymethylcellulose 0.5 1 drp ophthalmic (eye) DAILY PRN 07/06/22 07/06/22 Unknown %-glycerin 0.9 % eye drops Dry Eyes (Refresh Optive) conjugated estrogens 0.625 mg/gram 1 applic topical DIRECTED 07/06/22 07/06/22 Unknown vaginal cream (Premarin) cranberry 500 mg capsule 500 mg PO DAILY 07/06/22 07/06/22 Unknown cyclosporine 0.05 % eye drops in a 1 drp ophthalmic (eye) DIRECTED 07/06/22 07/06/22 Unknown dropperette (Restasis) hydrochlorothiazide 12.5 mg tablet 12.5 mg PO DAILY 07/06/22 07/06/22 Unknown insulin aspart U-100 100 unit/mL 20 - 25 unit subcut TIDM 07/06/22 07/06/22 07/06/22 18:00 (3 mL) subcutaneous pen (Novolog Flexpen U-100 Insulin aspart) insulin glargine 100 unit/mL 32 unit subcut AMHS 07/06/22 07/06/22 07/06/22 19:30 subcutaneous solution (Lantus U-100 Insulin) lactobacillus combination no.4 3 0 mmu cells PO DAILY 07/06/22 07/06/22 Unknown billion cell capsule (Probiotic) lisinopril 40 mg tablet 40 mg PO DAILY 07/06/22 07/06/22 Unknown melatonin 5 mg capsule 5 mg PO HS 07/06/22 07/06/22 Unknown multivitamin 1 tab PO DAILY 07/06/22 07/06/22 Unknown omega-3 fatty acids 1,000 mg 2,000 mg PO DAILY 07/06/22 07/06/22 Unknown capsule potassium chloride 20 mEq 20 meq PO QAM 07/06/22 07/06/22 Unknown tablet,extended release(part/cryst) sodium chloride, sodium 1 ea DIRECTED 07/06/22 07/06/22 Unknown bicarb-nasal rinse squeeze bottle with packet (Neilmed Sinus Rinse Complete with packet) turmeric root extract 500 mg 500 mg PO DAILY 07/06/22 07/06/22 Unknown capsule varenicline 0.03 mg/spray nasal 0.03 mg intranasal DAILY 07/06/22 07/06/22 Unknown spray (Tyrvaya) Active Medications Generic Name Dose Route Start Last Admin Trade Name Freq PRN Reason Stop Dose Admin Acetaminophen 650 mg 07/06/22 20:52 07/07/22 06:09 Acetaminophen 325 Mg Tab PO 08/05/22 20:51 650 mg Q4H PRN Administration Pain or Fever Pantoprazole Sodium 40 mg/ 100 mls @ 20 mls/hr 07/06/22 21:30 07/08/22 08:11 Dextrose IV 08/05/22 21:29 8 mg/hr Q5H DAVE 20 mls/hr Administration 8 MG/HR Insulin Aspart 0 units 07/07/22 12:00 07/08/22 06:41 Insulin Aspart Per Unit SC 08/05/22 20:59 Not Given Q6 DAVE Insulin Glargine 15 units 07/07/22 09:00 07/08/22 08:18 Lantus Per Unit Charge SQ 08/06/22 08:59 15 units BID DAVE Administration Lisinopril 40 mg 07/07/22 21:00 07/07/22 21:38 Lisinopril 40 Mg Tab PO 08/06/22 20:59 40 mg HS DAVE Administration Melatonin 3 mg 07/07/22 21:00 07/07/22 21:38 Melatonin 3 Mg Tab PO 08/06/22 20:59 3 mg HS DAVE Administration Potassium Chloride 20 meq 07/07/22 09:00 07/08/22 08:07 Potassium Chloride Crtab 20 Meq Tabcr PO 08/06/22 08:59 20 meq QAM DAVE Administration NPO Date Last Intake of Fluids: 07/07/22 Time Last Intake of Fluids: 21:00 Date Last Intake of Solids: 07/06/22 Past Medical History Medical History (Updated 07/08/22 @ 08:34 by Yane Thomas MD) Back problem 3 DISSINEGRATING VERTEBRAE Chronic vaginitis Diabetes mellitus, type II Encounter for pre-operative examination Fatty liver Fibromyalgia Generalized anxiety disorder History of breast cancer History of hypertension History of pelvic mass History of sleep apnea DENIES CURRENT PROBLEM OR DEVICE Hypertension Mild aortic stenosis ORALIA: 1.4 cm2, Ao mean P.0 Osteoarthritis Right inguinal pain Past Family History Family History Father Myocardial infarction Grandmother Cardiac disorder Stroke Family/Other Colorectal cancer Diabetes Hypertension Denies family history of Ovarian cancer Breast cancer Past Surgical History Surgical History H/O umbilical hernia repair (02/06/19) Right Laparoscopic Inguinal Hernia Repair Open Umbilical Hernia Repair Dr. Alonso 02-06-19 History of cholecystectomy History of gynecologic surgery anterior colporrhaphy (for pelvic relaxation) History of hysterectomy History of sinus surgery NODULE EROSION OF BONE /NEAR CAROTID ARTERY, NO COMPLICATIONS WITH SURGERY History of total mastectomy of right breast S/P cataract surgery S/P colonoscopy 10/18/03 extensive diverticulosis, Dr. Marinelli, [facility] otherwise clean per gei laurent record S/P inguinal hernia repair (02/06/19) Right Laparoscopic Inguinal Hernia Repair Dr. Alonso 02-06-19 Open Umbilical Hernia Repair S/P tubal ligation Status post knee surgery Status post right partial knee replacement Social History Smoking Status: Former smoker Do You Dip or Chew Tobacco: No Hx Alcohol Use: Yes Hx Substance Use: No substance use type: does not use Physical Exam Vital Signs Last Vital Signs Temp 36.5 C 07/08/22 08:00 Pulse 63 07/08/22 08:00 Resp 18 07/08/22 08:00 BP 168/77 H 07/08/22 08:00 Pulse Ox 97 07/08/22 08:00 O2 Del Method 07/08/22 08:00 Testing Laboratory Results 07/08/22 06:42 07/08/22 06:42 PT 11.9 Seconds (9.0-12.0) 07/06/22 18:36 INR 1.1 (0.9-1.1) 07/06/22 18:36 APTT 23.6 Seconds (21.0-31.0) 07/06/22 18:36 Hemoglobin A1c 7.3 % (4.5-5.6) H 07/08/22 06:42 Blood Type O Positive 07/06/22 18:36 Antibody Screen NEGATIVE 07/06/22 18:36 07/08/22 07/07/22 06:11 20:55 POC Glucose 158 H 110 H Electrocardiogram Date: 07/06/22 Normal sinus rhythm Left axis deviation Left ventricular hypertrophy with repolarization abnormality Prolonged QT Abnormal ECG When compared with ECG of 27-JAN-2019 20:06, Premature supraventricular complexes are no longer Present Minimal criteria for Septal infarct are no longer Present Confirmed by Nestor Salas ([id number]) on 07/07/2022 12:39:22 PM
--- NOTE | 2022-07-08 10:28 | Gastroenterology Progress Note ---
Date of Service July 08, 2022 Assessment & Plan (1) Hematochezia: Plan: Most likely a diverticular bleed. Plan Colonoscopy by Dr. Edwards this morning. Further recommendations to follow. Admission and Anticipated Discharge Date Admission Date: July 06, 2022 Supervising Physician Co-Signing Physician Notes Attg add: I interviewed and examined pt, reviewed chart and labs. Pt without overt bleeding. Cscopy today. OK to resume ASA. Subjective 77-year-old female presented with hematochezia on 07/06/21. Completed colonoscopy prep. Tells me at the completion of the prep she passed at least 5 totally clear liquid bowel movements. She has not had any blood in your bowel movements with the prep. She feels well, without any pain or other issues. She is asking to eat lunch and go home after colonoscopy today. She is not on anticoagulant. She takes aspirin 81 mg daily. Review of Systems Review of Systems: ROS: Gen: + weakness/lightheaded - now resolved. No fevers, no weight loss Eyes: + ongoing dry eyes; No eye redness, or pain, no recent vision changes Resp: No SOB, no cough Cardio: No palpitations/irregular beats, no chest pain GI: As per HPI, otherwise (-). : Denies pain on urination Skin: No jaundice, itching or new rashes A total of 12 systems were reviewed, all others (-). Physical Exam Constitutional: WD/WN, vitals as above Eyes: PERRL, conjunctivae normal, anicteric sclerae ENMT: external ear and nose normal, oropharynx normal Neck: trachea midline, no thyromegaly Respiratory: normal respiratory effort, lungs clear to auscultation Cardiovascular: RRR, no murmur, no edema Gastrointestinal (Abdomen): normal bowel sounds, soft, nontender, no hepatosplenomegaly Musculoskeletal: no cyanosis or clubbing, extremities motor strength 5/5 Skin: no rashes, warm and dry Neurologic: PERRL, EOMI, accommodation nl, no face palsy, no dysarthria Psychiatric: A+Ox3, euthymic affect Lymphatic: no cervical or axillary lymphadenopathy Results & Data ([facility]) Vital Signs (Past 12 Hours) Vital Signs Temp Pulse Pulse Resp BP Pulse Ox O2 Del Method 07/08/22 08:00 36.5 C 63 18 168/77 H 97 Room Air 07/08/22 07:22 52 L 07/08/22 02:43 36.6 C 73 16 177/72 H 98 Room Air 07/07/22 22:56 36.4 C L 59 L 16 149/70 H 95 Room Air Laboratory Results WBC 4.69, Hb 10.8, Hct 31.4, PLTs 155, NA 141, K3.8, Cl 110, CO2 25, BUN 14, Cr 0.5, glucose 165 Diagnostic Findings CTAP with IV contrast 07/06/2022: 1. No acute infectious or inflammatory findings are identified in the abdomen or pelvis. 2. Colonic diverticulosis without CT evidence of acute diverticulitis. 3. Additional findings as above.
[2022-07-08] MEDS ORDERED: PROPOFOL IV EMULSION 10 MG/ML 20 ML VIAL IV ONE ×2 (12:15→12:48)
[2022-07-08] MEDS ORDERED: LIDOCAINE 2% MPF LOCAL 5 ML VIAL INFIL ONE (12:15)
--- NOTE | 2022-07-08 12:16 | History & Physical Bridge Note ---
Date of Service July 08, 2022 History & Physical Bridge Note I have examined the patient, reviewed the History & Physical and in the interval since the performance of the History & Physical I have noted the following changes of clinical significance: no changes noted
--- NOTE | 2022-07-08 13:12 | Anesthesiology Progress Note ---
Date of Service July 08, 2022 Anesthesia Post Procedure Vital Signs Vital Signs: Temp Pulse Pulse Pulse Resp BP Pulse Ox 07/08/22 12:52 65 20 105/51 L 93 07/08/22 10:42 36.6 C 68 16 183/75 H 98 07/08/22 08:00 36.5 C 63 18 168/77 H 97 07/08/22 07:22 52 L 07/08/22 02:43 36.6 C 73 16 177/72 H 98 07/07/22 22:02 63 07/07/22 22:56 36.4 C L 59 L 16 149/70 H 95 07/07/22 19:00 36.7 C 66 16 191/71 H 96 07/07/22 16:00 168/67 H 07/07/22 15:06 36.5 C 67 16 100 07/07/22 14:54 63 O2 Del Method 07/08/22 12:52 Room Air 07/08/22 10:42 Room Air 07/08/22 08:00 Room Air 07/08/22 07:22 07/08/22 02:43 Room Air 07/07/22 22:02 07/07/22 22:56 Room Air 07/07/22 19:00 Room Air 07/07/22 16:00 07/07/22 15:06 Room Air 07/07/22 14:54 Pain Intensity Right Knee: Pain Intensity: 5 Transfer of Care Handoff Completed per policy Notes Mental Status: alert / awake / arousable and participated in evaluation Patient Amnestic to Procedure: Yes Nausea / Vomiting: adequately controlled Pain: adequately controlled Airway Patency, RR, SpO2: stable & adequate BP & HR: stable & adequate Hydration State: stable & adequate Anesthetic Complications: no major complications apparent and Pt Satisfied with anesthetic care
--- NOTE | 2022-07-08 13:17 | Communication Note ---
Date of Service: July 08, 2022 Unremarkable colonoscopy. Poor prep. May eat regular consistency diet. Anticipate discharge tomorrow if hgb ok If pt wishes OP colonoscopy for screening for colonoscopy we can arrange. Please call with questions.
[2022-07-08] MEDS ORDERED: Nursing to Pharmacy Communication SCH (14:30)
--- NOTE | 2022-07-08 14:59 | GI REPORT ---
Patient Name: Sara Mott Procedure Date: 07/08/2022 12:18 PM Date of : 1945 Admit Type: Inpatient Age: 77 Gender: Female Attending MD: Hossein Edwards MD, Procedure: Colonoscopy Providers: Hossein Edwards MD Referring MD: Javier Grimes Indications: Hematochezia Medicines: See the Anesthesia note for documentation of the administered medications Complications: No immediate complications. Estimated Blood Loss: Estimated blood loss: none. Procedure: Pre-Anesthesia Assessment: - ASA Grade Assessment: III - A patient with severe systemic disease. After I obtained informed consent, the scope was passed under direct vision. Throughout the procedure, the patient's blood pressure, pulse, and oxygen saturations were monitored continuously. The Colonoscope was introduced through the anus and advanced to the cecum, identified by appendiceal orifice and ileocecal valve. The colonoscopy was somewhat difficult due to significant looping. The patient tolerated the procedure well. The quality of the bowel preparation was poor. Findings: The perianal and digital rectal examinations were normal. There was a large amount of green stool throughout the entire colon. There was no evidence of active bleeding in the colon. Multiple small and large-mouthed diverticula were found in the entire colon. Two sessile polyps were found in the ascending colon and cecum. The polyps were 1 to 3 mm in size. These polyps were removed with a cold snare. Resection and retrieval were complete. Hemorrhoids were found during retroflexion. Impression: - Preparation of the colon was poor. - No active bleeding. - Diverticulosis in the entire examined colon. - Two 1 to 3 mm polyps in the ascending colon and in the cecum, removed with a cold snare. Resected and retrieved. - Hemorrhoids. She likely had a diverticular bleed. Recommendation: - Discharge patient to floor. - Resume diet. - OK for d/c home if hgb stable overnight. - We will arrange for repeat outpt colonoscopy, given prep quality. - Please call us with questions. Zhou Swanson MD 07/08/2022 2:59:16 PM This report has been signed electronically. Note Initiated On: 07/08/2022 12:18 PM Number of Addenda: 0 I attest to the content of the Intraoperative Record and orders documented therein, exceptions below {[id number]}
--- NOTE | 2022-07-08 16:35 | Hospitalist Progress Note ---
Date of Service July 08, 2022 Assessment & Plan (1) Hematochezia: Plan: Per GI thought to be a diverticular bleed. She is doing well on the prep and has had no further bloody bowel movements. Plan for colonoscopy tomorrow by Dr. Edwards. Status post colonoscopy-no acute bleeding identified but has hemorrhoids. 2 small polyps were removed Has been tolerating diet Will check hemoglobin tomorrow if stable can be discharged home (2) Diabetes mellitus, type II: Plan: Some hyperglycemia overnight which is more controlled this afternoon. Continue basal bolus insulin during admission. Updated A1c-7.3. (3) HTN (hypertension): Plan: Held diuretic therapy secondary to GI bleed and overall volume loss. Lisinopril was continued at 50% of the dose. However, this has become more elevated as the day continues and she remained stable from a GI bleed perspective. Will increase back to full 40 mg nightly for better control. Hold potassium supplementation while we are holding HCTZ. Monitor electrolytes daily. Blood pressure is stable DVT prophylaxis contraindicated in setting of acute bleed. Continue SCDs DNR/DNI Disposition-pending colonoscopy in AM. Possibly could go home tomorrow. Admission and Anticipated Discharge Date Admission Date: July 06, 2022 Subjective 07/08/2022 The patient was seen and examined in telemetry unit She is status post colonoscopy without any evidence of fresh bleeding Denies any symptoms following the scope and has been tolerating diet Review of Systems Review of Systems: All systems reviewed and are unremarkable except as noted below Physical Exam Physical Exam: Lying in bed comfortably Constitutional: well developed, well nourished and + obese; not ill appearing Eyes: PERRL, conjunctivae normal, anicteric sclerae ENMT: external ear and nose normal, oropharynx normal Neck: trachea midline, no thyromegaly Respiratory: no respiratory distress Auscultation: lungs clear to auscultation bilaterally Cardiovascular: Rate/Rhythm: regular rate and regular rhythm; not tachycardic Heart Sounds: normal S1 and normal S2; no murmur Extremities: no edema Bilateral thigh nodularities with the erythema and bruising. Status post biopsy Gastrointestinal (Abdomen): Inspection/Auscultation: normal bowel sounds; abdomen not distended Percussion/Palpation: abdomen soft; abdomen nontender Musculoskeletal: No acute arthritis in any joint. Neurologic: Alert, awake and oriented x3. No focal sensory or motor deficit appreciated Lymphatic: no cervical or axillary lymphadenopathy Results & Data Results & Data ([facility]) Vital Signs (Past 12 Hours) Vital Signs Temp Pulse Pulse Pulse Resp BP Pulse Ox 07/08/22 16:02 67 07/08/22 13:22 54 L 18 129/52 L 95 07/08/22 13:07 56 L 58 L 18 114/59 L 97 07/08/22 12:52 65 20 105/51 L 93 07/08/22 10:42 36.6 C 68 16 183/75 H 98 07/08/22 08:00 36.5 C 63 18 168/77 H 97 07/08/22 07:22 52 L O2 Del Method 07/08/22 16:02 07/08/22 13:22 Room Air 07/08/22 13:07 Room Air 07/08/22 12:52 Room Air 07/08/22 10:42 Room Air 07/08/22 08:00 Room Air 07/08/22 07:22 Laboratory Results Short CBC 07/07/22 07/08/22 Range/Units 19:49 06:42 WBC 4.69 L (4.8-10.8) K/ul Hgb 11.3 L 10.8 L (12.0-16.0) g/dl Hct 32.4 L 31.4 L (34.1-44.9) % Plt Count 155 (130-400) K/uL BMP 07/08/22 06:42 Sodium 141 Potassium 3.8 Chloride 110 H Carbon Dioxide 25 BUN 14 Creatinine 0.51 L Glucose 165 H Calcium 8.2 L Medications Administered Current Inpatient Medications Acetaminophen (Acetaminophen 325 Mg Tab) 650 mg PO Q4H PRN PRN Reason: Pain or Fever Stop: 08/05/22 20:51 Last Admin: 07/07/22 06:09 Dose: 650 mg Al Hydrox/Mg Hydrox/Simethicone (Aluminum/Magnesium Susp 30 Ml Udc) 15 ml PO Q4H PRN PRN Reason: Dyspepsia Stop: 08/05/22 20:51 Artificial Tears (Artificial Tears) 1 drops OP DAILY PRN PRN Reason: Dry Eyes Stop: 08/05/22 23:26 Dextrose (Dextrose 50% 50 Ml Syringe) 25 - 50 ml IV UD PRN; Protocol PRN Reason: Hypoglycemia Protocol Stop: 08/05/22 20:51 Glucagon (Glucagon For Inj 1 Mg Vial) 1 mg SQ UD PRN; Protocol PRN Reason: Hypoglycemia Protocol Stop: 08/05/22 20:51 Glucose (Glucose 40% Gel 15 Gm Tube) 15 - 30 gm PO UD PRN; Protocol PRN Reason: Hypoglycemia Protocol Stop: 08/05/22 20:51 Glucose (Glucose 10 Tab/Tube) 4 - 8 tab PO UD PRN; Protocol PRN Reason: Hypoglycemia Treatment Stop: 08/05/22 20:51 Hydrochlorothiazide (Hydrochlorothiazide 25 Mg Tab) 12.5 mg PO DAILY DAVE Stop: 08/06/22 08:59 Pantoprazole Sodium 40 mg/ (Dextrose) 100 mls @ 20 mls/hr IV Q5H DAVE Stop: 08/05/22 21:29 Last Infusion: 07/08/22 14:16 Dose: 8 mg/hr, 20 mls/hr Insulin Aspart (Insulin Aspart Per Unit) 0 units SC ACHS DAVE Stop: 08/07/22 16:29 Insulin Glargine (Lantus Per Unit Charge) 15 units SQ BID DAVE Stop: 08/06/22 08:59 Last Admin: 07/08/22 08:18 Dose: 15 units Lisinopril (Lisinopril 40 Mg Tab) 40 mg PO HS [facility] Stop: 08/06/22 20:59 Last Admin: 07/07/22 21:38 Dose: 40 mg Magnesium Hydroxide (Magnesium Hydroxide Susp 30 Ml Udc) 30 ml PO Q12H PRN PRN Reason: Constipation Stop: 08/05/22 20:51 Melatonin (Melatonin 3 Mg Tab) 3 mg PO HS [facility] Stop: 08/06/22 20:59 Last Admin: 07/07/22 21:38 Dose: 3 mg Miscellaneous (Carbohydrates For Hypoglycemia ) 15 - 30 gm PO UD PRN PRN Reason: Hypoglycemia Protocol Stop: 08/05/22 20:51 Potassium Chloride (Potassium Chloride Crtab 20 Meq Tabcr) 20 meq PO QAM DAVE Stop: 08/06/22 08:59 Last Admin: 07/08/22 08:07 Dose: 20 meq
[2022-07-08] MEDS: MELATONIN 3 MG TAB PO SCH (21:02)
[2022-07-08] MEDS: lisinopril 40 MG TAB PO SCH (21:03)
[2022-07-09 07:06] LABS: Basophils # (auto) 0.02 K/uL (0-0.2); Basophils % (auto) 0.5 %; Eosinophils # (auto) 0.19 K/uL (0-0.50); Eosinophils % (auto) 4.4 %; Hemoglobin 10.5 g/dl (12.0-16.0); Immature Granulocytes # (auto) 0.01 K/uL (0.00-0.02); Immature Granulocytes % (auto) 0.2 %; Lymphocytes # (auto) 1.79 K/uL (1.2-3.4); Lymphocytes % (auto) 41.7 %; Mean Corpuscular Hemoglobin 31.6 pg (25.0-34.0); Mean Corpuscular Volume 90.4 fL (80.0-100.0); Mean Platelet Volume 10.8 fL (9.4-12.3); Monocytes # (auto) 0.54 K/uL (0.24-0.82); Monocytes % (auto) 12.6 %; Neutrophils # (auto) 1.74 K/uL (1.4-6.5); Neutrophils % (auto) 40.6 %; Platelet Count 150 K/uL (130-400); RDW Coefficient of Variation 11.7 % (11.5-14.5); RDW Standard Deviation 38.9 fL (36.4-46.3); Red Blood Count 3.32 M/uL (3.93-5.22); White Blood Count 4.29 K/ul (4.8-10.8)
[2022-07-09 07:35] LABS: BUN Creatinine Ratio 33.9 (10-20); Calcium 8.3 mg/dl (8.5-10.1); Creatinine Clr Calc Pharmacy 71.3 ml/min; Est GFR (African American) 101.7 ml/min; Est GFR (Non-African American) 87.8 ml/min; Potassium 3.7 mmol/L (3.5-5.1)
[2022-07-09] MEDS: INSULIN ASPART PER UNIT SC SCH ×2 (08:42→12:03)
[2022-07-09] MEDS: LANTUS PER UNIT CHARGE SQ SCH (08:43)
[2022-07-09] MEDS: POTASSIUM CHLORIDE CRTAB 20 MEQ TABCR PO SCH (09:27)
--- NOTE | 2022-07-09 12:08 | Hospitalist Progress Note ---
Date of Service July 09, 2022 Assessment & Plan (1) Hematochezia: Plan: Per GI thought to be a diverticular bleed. She is doing well on the prep and has had no further bloody bowel movements. Plan for colonoscopy tomorrow by Dr. Edwards. Status post colonoscopy-no acute bleeding identified but has hemorrhoids. 2 small polyps were removed Has been tolerating diet Will check hemoglobin tomorrow if stable can be discharged home Hemoglobin remained stable at 10.5 and no more hematochezia Patient's remained stable and was discharged home this afternoon Will need to have outpatient colonoscopy as per GI (2) Diabetes mellitus, type II: Plan: Some hyperglycemia overnight which is more controlled this afternoon. Continue basal bolus insulin during admission. Updated A1c-7.3. Strongly advised to follow diabetic diet (3) HTN (hypertension): Plan: Held diuretic therapy secondary to GI bleed and overall volume loss. Lisinopril was continued at 50% of the dose. However, this has become more elevated as the day continues and she remained stable from a GI bleed perspective. Will increase back to full 40 mg nightly for better control. Hold potassium supplementation while we are holding HCTZ. Monitor electrolytes daily. Blood pressure is stable DVT prophylaxis contraindicated in setting of acute bleed. Continue SCDs DNR/DNI She will be discharged home this afternoon Admission and Anticipated Discharge Date Admission Date: July 06, 2022 Subjective 07/08/2022 The patient was seen and examined in telemetry unit She is status post colonoscopy without any evidence of fresh bleeding Denies any symptoms following the scope and has been tolerating diet 07/09/2022 The patient was seen and examined in telemetry unit She has been feeling much better and denies any abdominal pain, nausea and or vomiting She did not have any further bloody stool Her hemoglobin remained stable and will be discharged home this afternoon Review of Systems Review of Systems: All systems reviewed and are unremarkable except as noted below Physical Exam Physical Exam: Lying in bed comfortably Constitutional: well developed, well nourished and + obese; not ill appearing Eyes: PERRL, conjunctivae normal, anicteric sclerae ENMT: external ear and nose normal, oropharynx normal Neck: trachea midline, no thyromegaly Respiratory: no respiratory distress Auscultation: lungs clear to auscultation bilaterally Cardiovascular: Rate/Rhythm: regular rate and regular rhythm; not tachycardic Heart Sounds: normal S1 and normal S2; no murmur Extremities: no edema Gastrointestinal (Abdomen): Inspection/Auscultation: normal bowel sounds; abdomen not distended Percussion/Palpation: abdomen soft; abdomen nontender Musculoskeletal: No acute arthritis involving any joint Neurologic: normal touch/pain/proprioception and moves all extremities; no focal motor deficits Lymphatic: no cervical or axillary lymphadenopathy Results & Data Results & Data ([facility]) Vital Signs (Past 12 Hours) Vital Signs Temp Pulse Pulse Resp BP Pulse Ox O2 Del Method 07/09/22 11:53 36.7 C 74 18 150/74 H 95 Room Air 07/09/22 08:13 36.4 C L 57 L 16 172/75 H 95 Room Air 07/09/22 07:53 54 L 07/09/22 07:49 Room Air 07/09/22 03:03 36.8 C 57 L 18 147/66 H 97 Room Air Laboratory Results Short CBC 07/09/22 Range/Units 06:44 WBC 4.29 L (4.8-10.8) K/ul Hgb 10.5 L (12.0-16.0) g/dl Hct 30.0 L (34.1-44.9) % Plt Count 150 (130-400) K/uL BMP 07/09/22 06:44 Sodium 140 Potassium 3.7 Chloride 108 H Carbon Dioxide 28 BUN 20 Creatinine 0.59 L Glucose 154 H Calcium 8.3 L Medications Administered Current Inpatient Medications Acetaminophen (Acetaminophen 325 Mg Tab) 650 mg PO Q4H PRN PRN Reason: Pain or Fever Stop: 08/05/22 20:51 Last Admin: 07/07/22 06:09 Dose: 650 mg Al Hydrox/Mg Hydrox/Simethicone (Aluminum/Magnesium Susp 30 Ml Udc) 15 ml PO Q4H PRN PRN Reason: Dyspepsia Stop: 08/05/22 20:51 Artificial Tears (Artificial Tears) 1 drops OP DAILY PRN PRN Reason: Dry Eyes Stop: 08/05/22 23:26 Dextrose (Dextrose 50% 50 Ml Syringe) 25 - 50 ml IV UD PRN; Protocol PRN Reason: Hypoglycemia Protocol Stop: 08/05/22 20:51 Glucagon (Glucagon For Inj 1 Mg Vial) 1 mg SQ UD PRN; Protocol PRN Reason: Hypoglycemia Protocol Stop: 08/05/22 20:51 Glucose (Glucose 40% Gel 15 Gm Tube) 15 - 30 gm PO UD PRN; Protocol PRN Reason: Hypoglycemia Protocol Stop: 08/05/22 20:51 Glucose (Glucose 10 Tab/Tube) 4 - 8 tab PO UD PRN; Protocol PRN Reason: Hypoglycemia Treatment Stop: 08/05/22 20:51 Hydrochlorothiazide (Hydrochlorothiazide 25 Mg Tab) 12.5 mg PO DAILY [facility] Stop: 08/06/22 08:59 Insulin Aspart (Insulin Aspart Per Unit) 0 units SC ACHS [facility] Stop: 08/07/22 16:29 Last Admin: 07/09/22 12:03 Dose: 9 units Insulin Glargine (Lantus Per Unit Charge) 15 units SQ BID [facility] Stop: 08/06/22 08:59 Last Admin: 07/09/22 08:43 Dose: 15 units Lisinopril (Lisinopril 40 Mg Tab) 40 mg PO HS [facility] Stop: 08/06/22 20:59 Last Admin: 07/08/22 21:03 Dose: 40 mg Magnesium Hydroxide (Magnesium Hydroxide Susp 30 Ml Udc) 30 ml PO Q12H PRN PRN Reason: Constipation Stop: 08/05/22 20:51 Melatonin (Melatonin 3 Mg Tab) 3 mg PO HS [facility] Stop: 08/06/22 20:59 Last Admin: 07/08/22 21:02 Dose: 3 mg Miscellaneous (Carbohydrates For Hypoglycemia ) 15 - 30 gm PO UD PRN PRN Reason: Hypoglycemia Protocol Stop: 08/05/22 20:51 Potassium Chloride (Potassium Chloride Crtab 20 Meq Tabcr) 20 meq PO QAM [facility] Stop: 08/06/22 08:59 Last Admin: 07/09/22 09:27 Dose: 20 meq
--- NOTE | 2022-07-09 16:43 | Discharge Summary ---
Date of Service July 09, 2022 Admission HPI Per Admitting Provider 77-year-old lady with PMH of diverticulosis of colon, FLORES, HTN, HLD, T2DM, fibromyalgia, restless leg syndrome, pseudogout, chronic pain syndrome, tremor, statin intolerance presented to our ED 1/ with complaint of blood in the stool. Per patient, at around 4 PM she had initially dark blood in her stool followed by bright red blood and blood clots. She had 3 such events. After the last events he became so weak and lightheaded that she lowered herself down to floor and was on the floor for half an hour, denies any fall or hitting head or any other parts of the body. Patient denies any fever or lower belly pain or any pain or burning with passing urine. Patient denies any prior history of GI bleed, reports having colonoscopy 4 years ago where she was told that the scope was WNL. Patient reported some mild headache around the time. Patient denied any chest pain or palpitation or sore throat or cough or other review of symptoms. Patient denies smoking/alcohol use/recreational drug use CODE STATUS DNR/DNI per my discussion with patient In the past patient worked in [employer] [her work were mostly physical in nature] Family history positive for gastrointestinal disorder in her aunt and cousin, mother had diverticulitis and colostomy, father had some heart disorder. Medications were reviewed with the patient at bedside. Patient's son James Mott was present at bedside. Plan of care discussed. Admission Exam Per Admitting Provider Physical Exam: GENERAL: Alert and oriented x3. NAD, on RA. HEENT: No pallor, no icterus. Pupils equal, round and reactive to light. Oral mucosa moist. NECK: No JVD, no neck masses. HEART: S1 and S2 heard. Regular rate and rhythm. systolic murmur at aortic area, no gallop. RESPIRATORY SYSTEM: Normal AP diameter. No accessory muscle use. No wheezing, no crackles. ABDOMEN: Soft, bowel sounds present,nontender, no distention. CENTRAL NERVOUS SYSTEM: No facial droop. Speech is clear. Obeys simple commands. Moves extremities. EXTREMITIES: No edema, no erythema seen. Principal Diagnosis Acute blood loss anemia secondary to lower GI bleed, likely diverticular Discharge Exam Lying in bed comfortably Constitutional well developed, well nourished and + obese; not ill appearing Eyes PERRL, conjunctivae normal, anicteric sclerae ENMT external ear and nose normal, oropharynx normal Neck trachea midline, no thyromegaly Respiratory no respiratory distress Auscultation: lungs clear to auscultation bilaterally Cardiovascular Rate/Rhythm: regular rate and regular rhythm; not tachycardic Heart Sounds: normal S1 and normal S2; no murmur Extremities: no edema Gastrointestinal (Abdomen) Inspection/Auscultation: normal bowel sounds; abdomen not distended Percussion/Palpation: abdomen soft; abdomen nontender Neurologic normal touch/pain/proprioception and moves all extremities; no focal motor deficits Lymphatic no cervical or axillary lymphadenopathy Discharge Data Allergies Allergy/AdvReac Type Severity Reaction Status Date / Time blue dye Allergy Unknown Unknown Verified 07/08/22 10:41 celecoxib Allergy Unknown unknown Verified 07/08/22 10:41 diphenhydramine Allergy Unknown SEE NOTES Verified 07/08/22 10:41 [From Benadryl] duloxetine Allergy Unknown Unknown Verified 07/08/22 10:41 latex Allergy Unknown REDNESS Verified 07/08/22 10:41 linaclotide Allergy Unknown UNSURE Verified 07/08/22 10:41 meloxicam Allergy Unknown HEART Verified 07/08/22 10:41 PALPITATIONS metformin Allergy Unknown UNSURE Verified 07/08/22 10:41 nitrofurantoin Allergy Unknown muscle pain Verified 07/08/22 10:41 nylon Allergy Unknown "NYLON Verified 07/08/22 10:41 SUTURES" - RASH pneumococcal vaccine Allergy Unknown NAUSEATED Verified 07/08/22 10:41 pregabalin Allergy Unknown Unknown Verified 07/08/22 10:41 sertraline Allergy Unknown "I FELT Verified 07/08/22 10:41 STRANGE" Sulfa (Sulfonamide Allergy Unknown RASH Verified 07/08/22 10:41 Antibiotics) bee venom protein (honey bee) Allergy Unknown Verified 07/08/22 10:41 ciprofloxacin [From Cipro] Allergy Unknown Verified 07/08/22 10:41 Iodinated Contrast Media AdvReac Intermediate "GUILHERME ME Verified 07/08/22 10:41 [Iodinated Contrast- Oral OFF THE and IV Dye] BED" naproxen AdvReac Unknown UNSURE Verified 07/08/22 10:41 PAST REACTION - SEE NOTES oxycodone AdvReac Unknown ITCHING ? Verified 07/08/22 10:41 - PT NOT SURE simvastatin AdvReac Unknown leg Verified 07/08/22 10:41 cramping tapentadol [From Nucynta] AdvReac Unknown ITCHING Verified 07/08/22 10:41 Consultations 07/06/22 19:49 ED Decision to Admit Stat 07/06/22 20:52 Consult Gastroenterology Routine Procedures Performed Operation Date: 07/08/22 16:30 Actual Procedures p Colonoscopy Polypectomy - Hossein Edwards MD Ordered Studies 07/06/22 18:43 CT abd pelvis wo con Stat Hospital Course (1) Hematochezia: Per GI thought to be a diverticular bleed. She is doing well on the prep and has had no further bloody bowel movements. Plan for colonoscopy tomorrow by Dr. Edwards. Status post colonoscopy-no acute bleeding identified but has hemorrhoids. 2 small polyps were removed Has been tolerating diet Will check hemoglobin tomorrow if stable can be discharged home Hemoglobin remained stable at 10.5 and no more hematochezia Patient's remained stable and was discharged home this afternoon Will need to have outpatient colonoscopy as per GI (2) Diabetes mellitus, type II: Some hyperglycemia overnight which is more controlled this afternoon. Continue basal bolus insulin during admission. Updated A1c-7.3. Strongly advised to follow diabetic diet (3) HTN (hypertension): Held diuretic therapy secondary to GI bleed and overall volume loss. Lisinopril was continued at 50% of the dose. However, this has become more elevated as the day continues and she remained stable from a GI bleed perspective. Will increase back to full 40 mg nightly for better control. Hold potassium supplementation while we are holding HCTZ. Monitor electrolytes daily. Blood pressure is stable DVT prophylaxis contraindicated in setting of acute bleed. Continue SCDs DNR/DNI She will be discharged home this afternoon Total Time Total Time Spent Total Time Spent (In Minutes): 35 minutes Discharge Plan Discharge Items Patient Disposition: Home - Self-Care Reason For Visit: BLOOD IN STOOL/BLOOD CLOTS Discharge Diagnosis: Acute blood loss anemia secondary to lower GI bleed, likely diverticular Condition on Discharge: Good Activity: Resume your previous activity Non-emergency contact: Primary Care Provider Call non-emergency contact if: you have any medication questions and your symptoms worsen Follow-up/Referrals: Michi MelchorDO [Primary Care Provider] - 07/13/22 2:20 pm (Date & Time 07/13/2022 2:20 PM Provider Michi Melchor DO Department [facility] ) Diet: Carb Consistent or DM2 Addtl Attending Provider Instructions: Please take precautions to avoid falls Take your medications as advised Please give appointment with your healthcare providers Pending Studies at Discharge: Yes Studies:: Colonic biopsy Stand-Alone Forms: My [facility], Smoking Cessation Medications and DC Order Prescriptions: Continued lisinopril 40 mg tablet 40 mg PO DAILY multivitamin Tablet 1 tab PO DAILY amoxicillin 500 mg Capsule 2,000 mg PO DIRECTED Rx Instructions: TAKE PRIOR TO DENTAL PROCEDURES insulin glargine [Lantus U-100 Insulin] 100 unit/mL solution 32 unit SUBCUT AMHS omega-3 fatty acids 1,000 mg Capsule 2,000 mg PO DAILY aspirin 81 mg Tablet,Delayed Release (Dr/Ec) 81 mg PO HS potassium chloride 20 mEq tablet,ER particles/crystals 20 meq PO QAM Premarin 0.625 mg/gram cream 1 applic topical DIRECTED cranberry 500 mg Capsule 500 mg PO DAILY Rx Instructions: administer with meals insulin aspart U-100 [Novolog Flexpen U-100 Insulin] 100 unit/mL (3 mL) insulin pen 20 - 25 unit SUBCUT TIDM cyclosporine [Restasis] 0.05 % Dropperette 1 drp OPHTHALMIC (EYE) DIRECTED hydrochlorothiazide 12.5 mg tablet 12.5 mg PO DAILY Refresh Optive 0.5-0.9 % Drops 1 drp OPHTHALMIC (EYE) DAILY PRN (Reason: Dry Eyes) turmeric root extract 500 mg Capsule 500 mg PO DAILY Probiotic 3 billion cell Capsule 0 mmu cells PO DAILY Rx Instructions: administer with a meal Neilmed Sinus Rinse Complete Packet With Rinse Device 1 ea DIRECTED Tyrvaya 0.03 mg/spray Monson, Metered, Non-Aerosol 0.03 mg INTRANASAL DAILY Rx Instructions: administer approximately 12 hours apart melatonin 5 mg Capsule 5 mg PO HS Discharge Orders: Discharge Order (Routine); Ordered 07/09/22 Ordered By: Javier Crawley/Other Patient Handouts: Understanding Deep Vein Thrombosis, DVT Complications, Procedures for Deep Vein Thrombosis, Managing Type 2 Diabetes, Preventing Deep Vein Thrombosis Admission Data Admit Date/Time: 07/06/22 20:53 Attending Provider: Javier Grimes Admit Provider: Madeleine Miller Primary Care Provider: Michi Melchor Other Providers: Madeleine Miller ; Maryjo De Leon ; Shaheen Abebe ; Hien Powell ; Nini Vazquez ; Cynthia Will ; Daphney Camp ; Ashok Colindres ; Sudeep Heath ; Clarice Gutierrez ; Hossein Edwards ; Kori Gonzales ; Sophia Zeng ; Deborah Chavez ; Georgina Roach ; Ewa Lara ; Carrington Alcantara ; Garrett Burt ; Kenzie Dao ; Daria Basilio Jr ; Karrie Fox Other Interventions: Discharge Summary Assessment (RN) Last Done: 07/09/22 12:27
== END 2022-07-09 14:14 | disposition home or self-care (01) | DRG 378 ==
LOC: ED 18:25 → 2S 20:53 → SUATTDRO 20:53 → 2S 22:08

== ENCOUNTER 2022-07-18 04:44 | Observation (INO) ==
--- NOTE | 2022-07-18 05:23 | Emergency Department Note ---
Impression & Plan Hypertensive urgency ADMIT ED Provider Note HPI: The patient is a 77-year-old female who presents emergency department with concern for headache, patient states she has had a posterior and left-sided headache that seems to have been acutely worsening over about the past 12 to 24 hours. On arrival here to the ED the patient is noted to be hypertensive in the 190s systolic. Patient states that her pain is point tender in the area of the left lateral suboccipital muscles. She denies any visual changes, denies any chest pain or shortness of breath. Patient is overall nontoxic-appearing on my initial assessment here in the ED. ROS: - Per HPI *Outpatient medications and allergy history reviewed. *Pertinent external medical records reviewed. PE: General: Alert HEENT: Normocephalic, trachea midline Eyes: Extraocular eye movement is intact, no scleral erythema Pulmonary: Clear to auscultation bilaterally, no wheezing Cardio: Regular rate and rhythm GI: Abdomen is soft, nontender : No suprapubic tenderness MSK: No evidence of trauma or malformation of the extremities, no edema Skin: No evidence of rash Neuro: Alert, no focal deficits, no ataxia on [id number] testing, no drift of the upper extremities or lower extremities with testing against gravity Psychiatric: Cooperative court monitor: - An order was placed for continuous cardiac monitoring - Patient was noted to be in sinus rhythm with a rate of 95 EKG: (As interpreted by myself): Rate: 97 Rhythm: Sinus rhythm Intervals: QTC 515 ms, otherwise within normal limits ST changes: No ST elevation Time: 0454 Interventions provided in ED: -IV labetalol, IV morphine, IV Zofran NIH STROKE SCALE: 1A: Level of consciousness Alert; keenly responsive 0 1B: Ask month and age Both questions right 0 1C: 'Blink eyes' & 'squeeze hands' Performs both tasks 0 2: Horizontal extraocular movements Normal 0 3: Visual bacon No visual loss 0 4: Facial palsy Normal symmetry 0 5A: Left arm motor drift No drift for 10 seconds 0 5B: Right arm motor drift No drift for 10 seconds 0 6A: Left leg motor drift No drift for 5 seconds 0 6B: Right leg motor drift No drift for 5 seconds 0 7: Limb Ataxia No ataxia 0 8: Sensation Normal; no sensory loss 0 9: Language/aphasia Normal; no aphasia 0 10: Dysarthria Normal 0 11: Extinction/inattention No abnormality 0 TOTAL NIH SCORE = 0 Medical Decision Making: Patient presented to the emergency department with a focal area of tenderness in the left lateral neck in the area of the suboccipital muscles. She tells me that she has been symptomatic throughout the evening into the night tonight. On arrival here to the ED she does not have any focal deficits, blood pressure elevated in the 190 systolic. IV was established, lab work obtained, patient was placed on property assessment monitor, she does not have any focal deficits on my examination and NIH scale is 0. CT imaging of the head was obtained that shows evidence of a hypodensity in the right internal capsule insurance account representative of possible infarct of undetermined chronicity. Patient is not considered a candidate for tPA given her onset of s ymptoms outside the window in addition to low NIH and unclear primary diagnosis with headache as her main presenting symptom. Patient was given IV labetalol, IV morphine, IV Zofran, on my reassessment patient states her headache is improved but it is still present. Given her hypertension with presenting symptoms and CT imaging findings I did discuss the case with the on-call hospitalist for [facility], Dr. Miller, and the patient was placed for admission in stable condition and further management and likely MRI imaging to be obtained of the brain. Patient is in agreement to this plan, she was given a dose of aspirin prior to admission and she was admitted in stable condition for further care. Critical care time: 35 minutes -Time spent at the bedside and management of patient with hypertensive headache requiring IV medications (labetalol) for improvement in blood pressure, inte rpretation of diagnostic studies, time spent at the bedside and physical examination, discussion with the patient, and obtaining NIH stroke scale, discussion with other healthcare providers and arrangement of admission Disposition discussion held by myself with: Patient Diagnosis: 1. Hypertensive urgency 2. Headache, acute, intractable, left-sided 3. Stroke on CT imaging without contrast of unknown chronicity Disposition: Admission Noam Holley DO Emergency Medicine Past Med/Surg History Medical History (Updated 07/18/22 @ 18:25 by Noam Holley DO) Back problem 3 DISSINEGRATING VERTEBRAE Chronic vaginitis Diabetes mellitus, type II Encounter for pre-operative examination Fatty liver Fibromyalgia Generalized anxiety disorder History of breast cancer History of hypertension History of pelvic mass History of sleep apnea DENIES CURRENT PROBLEM OR DEVICE Hypertension Mild aortic stenosis ORALIA: 1.4 cm2, Ao mean P.0 Osteoarthritis Right inguinal pain Surgical History H/O umbilical hernia repair (02/06/19) Right Laparoscopic Inguinal Hernia Repair Open Umbilical Hernia Repair Dr. Alonso 02-06-19 History of cholecystectomy History of gynecologic surgery anterior colporrhaphy (for pelvic relaxation) History of hysterectomy History of sinus surgery NODULE EROSION OF BONE /NEAR CAROTID ARTERY, NO COMPLICATIONS WITH SURGERY History of total mastectomy of right breast S/P cataract surgery S/P colonoscopy 10/18/03 extensive diverticulosis, Dr. Marinelli, [facility] otherwise clean per [facility] record S/P inguinal hernia repair (02/06/19) Right Laparoscopic Inguinal Hernia Repair Dr. Alonso 02-06-19 Open Umbilical Hernia Repair S/P tubal ligation Status post knee surgery Status post right partial knee replacement Family History Father Myocardial infarction Grandmother Cardiac disorder Stroke Family/Other Colorectal cancer Diabetes Hypertension Denies family history of Ovarian cancer Breast cancer Social History Smoking Status: Never smoker Second Hand Exposure: No; Do You Dip or Chew Tobacco: No; Tobacco Cessation Education Requested by Patient: No Hx Alcohol Use: No Hx Substance Use: No Preferred Language: Serbian Communication Ability: Effective Health Services Information Specialist Required: No Beliefs That Will Affect Care: None marital status: Current Living Situation: Alone Other Information That Helps Us Care for You: No Feels Safe at Home: No Is there a partner from a previous relationship who is making you feel unsafe now?: No Any Concerns about Your Family Situation: No Would You Like to Speak to Someone About Your Situation: No Assistive Devices: None Allergies Allergies Allergy/AdvReac Type Severity Reaction Status Date / Time blue dye Allergy Unknown Unknown Verified 07/08/22 10:41 celecoxib Allergy Unknown unknown Verified 07/08/22 10:41 diphenhydramine Allergy Unknown SEE NOTES Verified 07/08/22 10:41 [From Benadryl] duloxetine Allergy Unknown Unknown Verified 07/08/22 10:41 latex Allergy Unknown REDNESS Verified 07/08/22 10:41 linaclotide Allergy Unknown UNSURE Verified 07/08/22 10:41 meloxicam Allergy Unknown HEART Verified 07/08/22 10:41 PALPITATIONS metformin Allergy Unknown UNSURE Verified 07/08/22 10:41 nitrofurantoin Allergy Unknown muscle pain Verified 07/08/22 10:41 nylon Allergy Unknown "NYLON Verified 07/08/22 10:41 SUTURES" - RASH pneumococcal vaccine Allergy Unknown NAUSEATED Verified 07/08/22 10:41 pregabalin Allergy Unknown Unknown Verified 07/08/22 10:41 sertraline Allergy Unknown "I FELT Verified 07/08/22 10:41 STRANGE" Sulfa (Sulfonamide Allergy Unknown RASH Verified 07/08/22 10:41 Antibiotics) bee venom protein (honey bee) Allergy Unknown Verified 07/08/22 10:41 ciprofloxacin [From Cipro] Allergy Unknown Verified 07/08/22 10:41 Iodinated Contrast Media AdvReac Intermediate "GUILHERME ME Verified 07/08/22 10:41 [Iodinated Contrast- Oral OFF THE and IV Dye] BED" naproxen AdvReac Unknown UNSURE Verified 07/08/22 10:41 PAST REACTION - SEE NOTES oxycodone AdvReac Unknown ITCHING ? Verified 07/08/22 10:41 - PT NOT SURE simvastatin AdvReac Unknown leg Verified 07/08/22 10:41 cramping tapentadol [From Nucynta] AdvReac Unknown ITCHING Verified 07/08/22 10:41 Home Meds Home Medications Medication Instructions Recorded Confirmed amoxicillin 500 mg capsule 2,000 mg PO DIRECTED 07/06/22 07/18/22 aspirin 81 mg tablet,delayed 81 mg PO HS 07/06/22 07/18/22 release carboxymethylcellulose 0.5 1 drp ophthalmic (eye) DAILY PRN 07/06/22 07/18/22 %-glycerin 0.9 % eye drops Dry Eyes (Refresh Optive) conjugated estrogens 0.625 mg/gram 1 applic topical DIRECTED 07/06/22 07/18/22 vaginal cream (Premarin) cranberry 500 mg capsule 500 mg PO DAILY 07/06/22 07/18/22 cyclosporine 0.05 % eye drops in a 1 drp ophthalmic (eye) DIRECTED 07/06/22 07/18/22 dropperette (Restasis) hydrochlorothiazide 12.5 mg tablet 12.5 mg PO DAILY 07/06/22 07/18/22 insulin aspart U-100 100 unit/mL 20 - 25 unit subcut TIDM 07/06/22 07/18/22 (3 mL) subcutaneous pen (Novolog FlexPen U-100 Insulin aspart) insulin glargine 100 unit/mL 32 unit subcut AMHS 07/06/22 07/18/22 subcutaneous solution (Lantus U-100 Insulin) lactobacillus combination no.4 3 0 mmu cells PO DAILY 07/06/22 07/18/22 billion cell capsule (Probiotic) lisinopril 40 mg tablet 40 mg PO DAILY 07/06/22 07/18/22 melatonin 5 mg capsule 5 mg PO HS 07/06/22 07/18/22 multivitamin 1 tab PO DAILY 07/06/22 07/18/22 potassium chloride 20 mEq 20 meq PO QAM 07/06/22 07/18/22 tablet,extended release(part/cryst) sodium chloride, sodium 1 ea DIRECTED 07/06/22 07/18/22 bicarb-nasal rinse squeeze bottle with packet (Neilmed Sinus Rinse Complete with packet) turmeric root extract 500 mg 500 mg PO DAILY 07/06/22 07/18/22 capsule Results & Data (ED) Vital Signs Vital Signs - 24 hr 07/18/22 04:54 07/18/22 04:56 07/18/22 06:17 Temperature 36.6 C Temperature Source Oral Pulse Rate 95 H 101 H 94 H Pulse Rate [Apical] Pulse Rate from SpO2 Sensor 38 L 80 Respiratory Rate 18 22 19 Respiratory Effort / Characteristics Non-Labored Respiratory Depth Normal Blood Pressure 191/60 H 184/107 H Blood Pressure [Left Arm] Blood Pressure Mean 103 132 Blood Pressure Mean [Left Arm] Pulse Oximetry 96 95 93 Oxygen Delivery Method Room Air Room Air Room Air Sepsis Recent Fever Within 48 Hours No Sepsis New/Unexplained Change in Mental Status N/A Sepsis Action Taken by Nursing No Action Required 07/18/22 07:00 07/18/22 07:00 Temperature Temperature Source Pulse Rate 106 H Pulse Rate [Apical] 106 H Pulse Rate from SpO2 Sensor Respiratory Rate 16 Respiratory Effort / Characteristics Respiratory Depth Blood Pressure Blood Pressure [Left Arm] 179/69 H Blood Pressure Mean Blood Pressure Mean [Left Arm] 105 Pulse Oximetry 92 92 Oxygen Delivery Method Room Air Sepsis Recent Fever Within 48 Hours Sepsis New/Unexplained Change in Mental Status Sepsis Action Taken by Nursing Laboratory Data 07/18/22 05:08 07/18/22 05:08 Lab Results 07/18/22 07/18/22 07/18/22 Range/Units 05:08 05:08 07:00 WBC 5.86 (4.8-10.8) K/ul RBC 4.01 (3.93-5.22) M/uL Hgb 12.7 (12.0-16.0) g/dl Hct 37.0 (34.1-44.9) % MCV 92.3 (80.0-100.0) fL MCH 31.7 (25.0-34.0) pg MCHC 34.3 (32.0-36.0) g/dL RDW Std Deviation 41.6 (36.4-46.3) fL RDW Coeff of Valente 12.3 (11.5-14.5) % Plt Count 258 (130-400) K/uL MPV 10.9 (9.4-12.3) fL Immature Gran % (Auto) 0.3 % Neut % (Auto) 41.5 % Lymph % (Auto) 40.4 % [place] % (Auto) 13.5 % Eos % (Auto) 3.6 % Baso % (Auto) 0.7 % Neut # (Auto) 2.43 (1.4-6.5) K/uL Lymph # (Auto) 2.37 (1.2-3.4) K/uL [place] # (Auto) 0.79 (0.24-0.82) K/uL Eos # (Auto) 0.21 (0-0.50) K/uL Baso # (Auto) 0.04 (0-0.2) K/uL Immature Gran # (Auto) 0.02 (0.00-0.02) K/uL Sodium 141 (136-145) mmol/L Potassium 4.1 (3.5-5.1) mmol/L Chloride 108 H (98-107) mmol/L Carbon Dioxide 24 (21-32) mmol/L Anion Gap 9 (3-11) BUN 29 H (6-23) mg/dl Creatinine 0.53 L (0.6-1.2) mg/dl Est Cr Clr Drug Dosing 79.6 ml/min Est GFR ( Amer) 105.4 ml/min Est GFR (Non-Af Amer) 90.9 ml/min BUN/Creatinine Ratio 54.7 H (10-20) Glucose 175 H (70-99(Fasting)) mg/dl Calcium 9.3 (8.5-10.1) mg/dl Total Bilirubin 0.6 (0.2-1.0) mg/dl AST 32 (13-39) U/L ALT 33 (7-52) U/L Alkaline Phosphatase 76 (34-104) U/L Troponin I High Sens 5.3 (0-14) pg/ml Total Protein 6.9 (6.0-8.3) gm/dl Albumin 3.7 (3.4-5.0) gm/dl Globulin 3.2 (2.5-4.0) gm/dl Albumin/Globulin Ratio 1.2 (0.9-2) Lipase 28 (11-82) U/L SARS-CoV-2, RNA, NAAT NEGATIVE (NEGATIVE) Administered Medications Acetaminophen (Acetaminophen 325 Mg Tab) 650 mg PO Q4H PRN PRN Reason: Pain or Fever Stop: 08/17/22 08:41 Last Admin: 07/18/22 16:00 Dose: 650 mg Documented By: DEVANTE Insulin Aspart (Insulin Aspart Per Unit) 0 units SC ACHS [facility] Stop: 08/17/22 11:29 Last Admin: 07/18/22 17:52 Dose: 4 units Documented By: DEVANTE Co-signed By: PATRICK Admin: 07/18/22 12:42 Dose: 5 units Documented By: DEVANTE Co-signed By: PATRICK Miscellaneous (Restasis ~ Order Awaiting Action) 1 each N/A QS [facility] Stop: 08/17/22 15:59 Last Admin: 07/18/22 15:52 Dose: Not Given Documented By: DEVANTE Discontinued Medications Aspirin (Aspirin Chew 324 Mg) 324 mg PO NOW STA Stop: 07/18/22 06:51 Last Admin: 07/18/22 06:55 Dose: 324 mg Documented By: SADIE Labetalol HCl (Labetalol Hcl Iv 5 Mg/Ml 20ml) 10 mg IV NOW STA Stop: 07/18/22 06:44 Last Admin: 07/18/22 06:55 Dose: 10 mg Documented By: SADIE Co-signed By: Morphine Sulfate (Morphine Sulfate 4 Mg/Ml 1 Ml Carp\\Vial) 4 mg IV NOW STA Stop: 07/18/22 05:31 Last Admin: 07/18/22 06:10 Dose: 4 mg Documented By: Ondansetron HCl (Ondansetron Inj 2 Mg/Ml 2 Ml Vial) 4 mg IV NOW STA Stop: 07/18/22 05:31 Last Admin: 07/18/22 06:08 Dose: 4 mg Documented By: Imaging Data Radiologist's Impression: Chest X-Ray 07/18/22 05:22 XR chest 1V portable CLINICAL HISTORY: Chest pain, nonspecific TECHNIQUE: Single frontal radiograph of the chest was obtained. Comparison: Comparison is made to chest radiograph 01/27/[address] chest 10/22/2014 FINDINGS: No lines and tubes are seen. The cardiomediastinal silhouette is normal. There is a soft tissue nodule in the right upper lobe, unchanged from prior exam, corresponding to a calcified granuloma. No evidence of pleural effusion or pneumothorax. IMPRESSION: No acute chest disease. ACT 112: Negative or not required by law. Electronically signed by: Justyn Saini M.D. 07/18/2022 6:[address] 07/18/22 05:29 CT cervical spine wo con CLINICAL HISTORY: L sided neck pain TECHNIQUE: Multidetector row helical CT of the cervical spine was performed without administration of intravenous contrast. Coronal and sagittal reformation s were obtained. Automated dose lowering techniques and/or adjustment according to patient size were utilized for this exam. Comparison: None available at the time of this dictation. FINDINGS: No acute fractures or subluxations are identified. Degenerative changes are seen in the visualized spine. The alignment is normal. Thyroid nodules are seen to 14 mm which do not require follow-up by ACR IMPRESSION: No evidence of acute bony injury. ACT 112: Negative or not required by law. Electronically signed by: Justyn Saini M.D. 07/18/2022 6:[address] 07/18/22 05:29 CT head/brain wo con CLINICAL HISTORY: WILLS Technique: Contiguous axial CT images of the head were acquired from the base of the skull to the vertex without intravenous contrast administration. Images were viewed in brain, subdural and bone windows. Automated dose lowering techniques and/or adjustment according to patient size were utilized for this exam. Comparison: Comparison is made to CT head 01/07/2019 Findings: Areas of decreased attenuation are present in the periventricular and subcortical white matter bilaterally consistent with small vessel ischemic disease. Generalized cerebral volume loss with commensurate enlargement of the ventricles, sulci, and cisterns is also present. There is a hypodensity in the right posterior internal capsule which was not seen on prior exam. Questionable minimal thickening of the ethmoid sinuses. The orbits appear normal. There are no acute fractures of the calvaria or scalp swelling. Impression: New hypodensity in the right posterior internal capsule which may represent an age-indeterminate infarct . No evidence of hemorrhage. ACT 112: Negative or not required by law. Electronically signed by: Justyn Saini M.D. 07/18/2022 6:33 AM Brain MRI 07/18/22 06:42 MR brain wo con CLINICAL HISTORY: WILLS, eval stroke on CT TECHNIQUE: Multiplanar and multisequence MR images of the brain were obtained without intravenous contrast. Comparison: Comparison is made to CT head 07/18/2022 FINDINGS: No abnormal restricted diffusion is identified. Foci of T2 and FLAIR hyperintensity are noted in the paraventricular areas consistent with chronic small vessel ischemic disease. Ex vacuo ventriculomegaly and sulcal enlargement is noted compatible with diffuse encephalomalacia. An old lacunar infarct is in the right posterior internal capsule. No mass is seen. There is no mass effect or midline shift. There is no evidence of acute intraparenchymal hemorrhage. No extra axial fluid collections are seen. The corpus callosum, pituitary gland, and cerebellar tonsils appear grossly unremarkable. Flow voids of the major intracranial arterial vessels are identified. The imaged portions of the paranasal sinuses, mastoid air cells, and orbits are unremarkable. IMPRESSION: Previously noted age-indeterminate right basal ganglia infarct is chronic, no acute stroke is seen. ACT 112: Negative or not required by law. Electronically signed by: Justyn Saini M.D. 07/18/2022 8:19 AM Discharge Plan Visit Data Chief Complaint: Hypertension Stated Complaint: Neck Pain, Hypertension ED Provider: Noam Holley Discharge Problem: Hypertensive urgency Patient Disposition: Admitted As Inpatient Discharge Instructions Interventions: ED Discharge Assessment Last Done: 07/18/22 10:18
[2022-07-18] MEDS ORDERED: MoRPHine SULFATE 4 MG/ML 1 ML CARP\\VIAL IV STA (05:30)
[2022-07-18] MEDS ORDERED: ONDANSETRON INJ 2 MG/ML 2 ML VIAL IV STA (05:30)
[2022-07-18 05:39] LABS: Basophils # (auto) 0.04 K/uL (0-0.2); Basophils % (auto) 0.7 %; Eosinophils # (auto) 0.21 K/uL (0-0.50); Eosinophils % (auto) 3.6 %; Hemoglobin 12.7 g/dl (12.0-16.0); Immature Granulocytes # (auto) 0.02 K/uL (0.00-0.02); Immature Granulocytes % (auto) 0.3 %; Lymphocytes # (auto) 2.37 K/uL (1.2-3.4); Lymphocytes % (auto) 40.4 %; Mean Corpuscular Hemoglobin 31.7 pg (25.0-34.0); Mean Corpuscular Hgb Conc 34.3 g/dL (32.0-36.0); Mean Corpuscular Volume 92.3 fL (80.0-100.0); Mean Platelet Volume 10.9 fL (9.4-12.3); Monocytes # (auto) 0.79 K/uL (0.24-0.82); Monocytes % (auto) 13.5 %; Neutrophils # (auto) 2.43 K/uL (1.4-6.5); Neutrophils % (auto) 41.5 %; Platelet Count 258 K/uL (130-400); RDW Coefficient of Variation 12.3 % (11.5-14.5); RDW Standard Deviation 41.6 fL (36.4-46.3); Red Blood Count 4.01 M/uL (3.93-5.22); White Blood Count 5.86 K/ul (4.8-10.8)
[2022-07-18 05:44] LABS: Troponin I High Sensitivity 5.3 pg/ml (0-14)
[2022-07-18 05:45] LABS: Albumin Globulin Ratio 1.2 (0.9-2); Albumin Level 3.7 gm/dl (3.4-5.0); BUN Creatinine Ratio 54.7 (10-20); Bilirubin,Total 0.6 mg/dl (0.2-1.0); Calcium 9.3 mg/dl (8.5-10.1); Creatinine Clr Calc Pharmacy 79.6 ml/min; Est GFR (African American) 105.4 ml/min; Est GFR (Non-African American) 90.9 ml/min; Globulin 3.2 gm/dl (2.5-4.0); Potassium 4.1 mmol/L (3.5-5.1); Total Protein 6.9 gm/dl (6.0-8.3)
--- NOTE | 2022-07-18 06:24 | CT Scan Report ---
CT cervical spine wo con CLINICAL HISTORY: L sided neck pain TECHNIQUE: Multidetector row helical CT of the cervical spine was performed without administration of intravenous contrast. Coronal and sagittal reformations were obtained. Automated dose lowering techn iques and/or adjustment according to patient size were utilized for this exam. Comparison: None available at the time of this dictation. FINDINGS: No acute fractures or subluxations are identified. Degenerative changes are seen in the visualized sp ine. The alignment is normal. Thyroid nodules are seen to 14 mm which do not require follow-up by ACR IMPRESSION: No evidence of acute bony injury. ACT 112: Negative or not required by law. Electronically signed by: Justyn Saini M.D. 07/18/2022 6:22 AM
--- NOTE | 2022-07-18 06:35 | CT Scan Report ---
CT head/brain wo con CLINICAL HISTORY: WILLS Technique: Contiguous axial CT images of the head were acquired from the base of the skull to the cathi manfred without intravenous contrast administration. Images were viewed in brain, subdural and bone windo ws. Automated dose lowering techniques and/or adjustment according to patient size were utilized for this exam. Comparison: Comparison is made to CT head 01/07/2019 Findings: Areas of decreased attenuation are present in the periventricular and subcortical white matter bilate rally consistent with small vessel ischemic disease. Generalized cerebral volume loss with commensura te enlargement of the ventricles, sulci, and cisterns is also present. There is a hypodensity in the right posterior internal capsule which was not seen on prior exam. Questionable minimal thickening of the ethmoid sinuses. The orbits appear normal. There are no acute fractures of the calvaria or scalp swelling. Impression: New hypodensity in the right posterior internal capsule which may represent an age-indeterminate infa rct . No evidence of hemorrhage. ACT 112: Negative or not required by law. Electronically signed by: Justyn Saini M.D. 07/18/2022 6:33 AM
[2022-07-18] MEDS ORDERED: LABETALOL HCL IV 5 MG/ML 20ML IV STA (06:43)
[2022-07-18] MEDS ORDERED: ASPIRIN CHEW 324 MG PO STA (06:50)
--- NOTE | 2022-07-18 06:53 | XRay Report ---
XR chest 1V portable CLINICAL HISTORY: Chest pain, nonspecific TECHNIQUE: Single frontal radiograph of the chest was obtained. Comparison: Comparison is made to chest radiograph 01/27/[address] chest 10/22/2014 FINDINGS: No lines and tubes are seen. The cardiomediastinal silhouette is normal. There is a soft tissue nodul e in the right upper lobe, unchanged from prior exam, corresponding to a calcified granuloma. No evid ence of pleural effusion or pneumothorax. IMPRESSION: No acute chest disease. ACT 112: Negative or not required by law. Electronically signed by: Justyn Saini M.D. 07/18/2022 6:52 AM
--- NOTE | 2022-07-18 08:22 | Magnetic Resonance Report ---
MR brain wo con CLINICAL HISTORY: WILLS, eval stroke on CT TECHNIQUE: Multiplanar and multisequence MR images of the brain were obtained without intravenous con trast. Comparison: Comparison is made to CT head 07/18/2022 FINDINGS: No abnormal restricted diffusion is identified. Foci of T2 and FLAIR hyperintensity are noted in the paraventricular areas consistent with chronic small vessel ischemic disease. Ex vacuo ventriculomegal y and sulcal enlargement is noted compatible with diffuse encephalomalacia. An old lacunar infarct is in the right posterior internal capsule. No mass is seen. There is no mass effect or midline shift. There is no evidence of acute intraparenchymal hemorrhage. No extra axial fluid collections are seen. The corpus callosum, pituitary gland, and cerebellar tonsils appear grossly unremarkable. Flow voids of the major intracranial arterial vessels are identified. The imaged portions of the para nasal sinuses, mastoid air cells, and orbits are unremarkable. IMPRESSION: Previously noted age-indeterminate right basal ganglia infarct is chronic, no acute stroke is seen. ACT 112: Negative or not required by law. Electronically signed by: Justyn Saini M.D. 07/18/2022 8:19 AM
[2022-07-18] MEDS ORDERED: ONDANSETRON INJ 2 MG/ML 2 ML VIAL IV PRN (08:42)
[2022-07-18] MEDS ORDERED: POLYETHYLENE (MIRALAX) 17 GM PACK PO PRN (08:42)
[2022-07-18] MEDS ORDERED: MAGNESIUM HYDROXIDE SUSP 30 ML UDC PO PRN (08:42)
[2022-07-18] MEDS ORDERED: ALUMINUM/MAGNESIUM SUSP 30 ML UDC PO PRN (08:42)
[2022-07-18] MEDS ORDERED: ACETAMINOPHEN 325 MG TAB PO PRN (08:42)
--- NOTE | 2022-07-18 09:02 | History & Physical Report ---
Date of Service July 18, 2022 Assessment & Plan (1) Hypertensive urgency: Plan Hypertensive urgency Headache Patient woke up around 2-3 AM on the day of arrival with posterior headache. Admitting blood pressure 191/60, Admitting labs fairly WNL, COVID-negative Patient received morphine and labetalol and aspirin in the ED with resolution of her headache. Admitting CXR/C-spine CT with no acute finding. Admitting CT head with hypodensity in the right posterior internal capsule suggestive of age indeterminate infarct, no evidence of hemorrhage. 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 Patient has remote history of stroke of which patient is not much aware of regarding details. Patient reports taking her blood pressure medications as prescribed, does not measure blood pressure at home. Neurological examination WNL, no focal weakness. Neurochecks as needed, telemetry monitoring, continue home blood pressure medication, as needed blood pressure medication for now, may need to titrate home BP meds Lipid profile in a.m. Continue with home medications including aspirin. Other chronic medical conditions: As mentioned in HPI including diabetes ---> sliding scale insulin for diabetes, resume other home meds as able. DVT prophylaxis: Heparin subcu DNR/DNI. History of Present Illness Chief Complaint: Headache x posterior Primary Care Provider: Michi Melchor DO 77-year-old lady with PMH of diverticulosis of colon, FLORES, HTN, HLD, T2DM, fibromyalgia, restless leg syndrome, pseudogout, chronic pain syndrome, tremor, statin intolerance presented to our ED 07/18 with headache (back of head) since she woke up. Of note, she was recently at [facility] 07/06/22 - 07/09/22 for GI bleed. Patient reports waking up around 2-3 AM in the morning with headache that felt like hurting at the back of her head and also felt like lump, reports the hurt was radiating down along the sides of her back of neck. Patient reports she suffered from flulike illness few days after she was discharged on July 09, and is recovering from them and reports improving cough/improving sore throat/no more runny nose and myalgia. Patient denies fever, chest pain, palpitation, belly pain, acute changes in her bowel or bladder habit, any new weakness or numbness or tingling anywhere in the body, any skin rash or open wound. Patient denies smoking (brief smoking during early years) /alcohol use/recreational drug use CODE STATUS DNR/DNI as per discussion with patient. In the past patient worked in [employer] [her work were mostly physical in nature] Family history positive for gastrointestinal disorder in her aunt and cousin, mother had diverticulitis and colostomy, father had some heart disorder. Also reports stroke in her Grandmother, cousin (in her 50s) and aunts. Medications were reviewed with the patient at bedside. Plan of care discussed with the patient. Allergies Allergy/AdvReac Type Severity Reaction Status Date / Time blue dye Allergy Unknown Unknown Verified 07/08/22 10:41 celecoxib Allergy Unknown unknown Verified 07/08/22 10:41 diphenhydramine Allergy Unknown SEE NOTES Verified 07/08/22 10:41 [From Benadryl] duloxetine Allergy Unknown Unknown Verified 07/08/22 10:41 latex Allergy Unknown REDNESS Verified 07/08/22 10:41 linaclotide Allergy Unknown UNSURE Verified 07/08/22 10:41 meloxicam Allergy Unknown HEART Verified 07/08/22 10:41 PALPITATIONS metformin Allergy Unknown UNSURE Verified 07/08/22 10:41 nitrofurantoin Allergy Unknown muscle pain Verified 07/08/22 10:41 nylon Allergy Unknown "NYLON Verified 07/08/22 10:41 SUTURES" - RASH pneumococcal vaccine Allergy Unknown NAUSEATED Verified 07/08/22 10:41 pregabalin Allergy Unknown Unknown Verified 07/08/22 10:41 sertraline Allergy Unknown "I FELT Verified 07/08/22 10:41 STRANGE" Sulfa (Sulfonamide Allergy Unknown RASH Verified 07/08/22 10:41 Antibiotics) bee venom protein (honey bee) Allergy Unknown Verified 07/08/22 10:41 ciprofloxacin [From Cipro] Allergy Unknown Verified 07/08/22 10:41 Iodinated Contrast Media AdvReac Intermediate "GUILHERME ME Verified 07/08/22 10:41 [Iodinated Contrast- Oral OFF THE and IV Dye] BED" naproxen AdvReac Unknown UNSURE Verified 07/08/22 10:41 PAST REACTION - SEE NOTES oxycodone AdvReac Unknown ITCHING ? Verified 07/08/22 10:41 - PT NOT SURE simvastatin AdvReac Unknown leg Verified 07/08/22 10:41 cramping tapentadol [From Nucynta] AdvReac Unknown ITCHING Verified 07/08/22 10:41 Home Medications Medication Instructions Recorded Confirmed Type amoxicillin 500 mg capsule 2,000 mg PO DIRECTED 07/06/22 07/18/22 History aspirin 81 mg tablet,delayed 81 mg PO HS 07/06/22 07/18/22 History release carboxymethylcellulose 0.5 1 drp ophthalmic (eye) DAILY PRN 07/06/22 07/18/22 History %-glycerin 0.9 % eye drops Dry Eyes (Refresh Optive) conjugated estrogens 0.625 mg/gram 1 applic topical DIRECTED 07/06/22 07/18/22 History vaginal cream (Premarin) cranberry 500 mg capsule 500 mg PO DAILY 07/06/22 07/18/22 History cyclosporine 0.05 % eye drops in a 1 drp ophthalmic (eye) DIRECTED 07/06/22 07/18/22 History dropperette (Restasis) hydrochlorothiazide 12.5 mg tablet 12.5 mg PO DAILY 07/06/22 07/18/22 History insulin aspart U-100 100 unit/mL 20 - 25 unit subcut TIDM 07/06/22 07/18/22 History (3 mL) subcutaneous pen (Novolog FlexPen U-100 Insulin aspart) insulin glargine 100 unit/mL 32 unit subcut AMHS 07/06/22 07/18/22 History subcutaneous solution (Lantus U-100 Insulin) lactobacillus combination no.4 3 0 mmu cells PO DAILY 07/06/22 07/18/22 History billion cell capsule (Probiotic) lisinopril 40 mg tablet 40 mg PO DAILY 07/06/22 07/18/22 History melatonin 5 mg capsule 5 mg PO HS 07/06/22 07/18/22 History multivitamin 1 tab PO DAILY 07/06/22 07/18/22 History potassium chloride 20 mEq 20 meq PO QAM 07/06/22 07/18/22 History tablet,extended release(part/cryst) sodium chloride, sodium 1 ea DIRECTED 07/06/22 07/18/22 History bicarb-nasal rinse squeeze bottle with packet (Neilmed Sinus Rinse Complete with packet) turmeric root extract 500 mg 500 mg PO DAILY 07/06/22 07/18/22 History capsule Past Med/Surg History Medical History (Updated 07/18/22 @ 09:02 by Madeleine Miller MD) Back problem 3 DISSINEGRATING VERTEBRAE Chronic vaginitis Diabetes mellitus, type II Encounter for pre-operative examination Fatty liver Fibromyalgia Generalized anxiety disorder History of breast cancer History of hypertension History of pelvic mass History of sleep apnea DENIES CURRENT PROBLEM OR DEVICE Hypertension Mild aortic stenosis ORALIA: 1.4 cm2, Ao mean P.0 Osteoarthritis Right inguinal pain Surgical History H/O umbilical hernia repair (02/06/19) Right Laparoscopic Inguinal Hernia Repair Open Umbilical Hernia Repair Dr. Alonso 02-06-19 History of cholecystectomy History of gynecologic surgery anterior colporrhaphy (for pelvic relaxation) History of hysterectomy History of sinus surgery NODULE EROSION OF BONE /NEAR CAROTID ARTERY, NO COMPLICATIONS WITH SURGERY History of total mastectomy of right breast S/P cataract surgery S/P colonoscopy 10/18/03 extensive diverticulosis, Dr. Marinelli, [facility] otherwise clean per [facility] record S/P inguinal hernia repair (02/06/19) Right Laparoscopic Inguinal Hernia Repair Dr. Alonso 02-06-19 Open Umbilical Hernia Repair S/P tubal ligation Status post knee surgery Status post right partial knee replacement Family History Father Myocardial infarction Grandmother Cardiac disorder Stroke Family/Other Colorectal cancer Diabetes Hypertension Denies family history of Ovarian cancer Breast cancer Social History Smoking Status: Never smoker Second Hand Exposure: No; Do You Dip or Chew Tobacco: No; Tobacco Cessation Education Requested by Patient: No Hx Alcohol Use: No Hx Substance Use: No Preferred Language: Japanese Communication Ability: Effective Clinical Education Consultant Required: No Beliefs That Will Affect Care: None marital status: Current Living Situation: Alone Other Information That Helps Us Care for You: No Feels Safe at Home: No Is there a partner from a previous relationship who is making you feel unsafe now?: No Any Concerns about Your Family Situation: No Would You Like to Speak to Someone About Your Situation: No Assistive Devices: None Review of Systems Review of Systems: Negative otherwise mentioned in HPI. Physical Exam Physical Exam: GENERAL: Alert and oriented x3. NAD, on RA. HEENT: No pallor, no icterus. Pupils equal, round and reactive to light. Oral mucosa moist. NECK: No JVD, no neck masses. HEART: S1 and S2 heard. Regular rate and rhythm. systolic murmur at aortic area, no gallop. RESPIRATORY SYSTEM: Normal AP diameter. No accessory muscle use. No wheezing, no crackles. ABDOMEN: Soft, bowel sounds present,nontender, no distention. CENTRAL NERVOUS SYSTEM: No facial droop. Speech is clear. Obeys simple commands. Moves extremities. No facial droop, strength all extremities 5/5. EXTREMITIES: No edema, no erythema seen. Results & Data Results & Data ([facility]) Vital Signs (Past 12 Hours) Vital Signs Temp Pulse Pulse Resp BP BP Pulse Ox 07/18/22 07:00 106 H 16 92 07/18/22 07:00 106 H 179/69 H 92 07/18/22 06:17 94 H 19 184/107 H 93 07/18/22 04:56 101 H 22 95 07/18/22 04:54 36.6 C 95 H 18 191/60 H 96 O2 Del Method 07/18/22 07:00 07/18/22 07:00 Room Air 07/18/22 06:17 Room Air 07/18/22 04:56 Room Air 07/18/22 04:54 Room Air
[2022-07-18] MEDS ORDERED: GLUCAGON FOR INJ 1 MG VIAL SQ PRN (09:31)
[2022-07-18] MEDS ORDERED: CARBOHYDRATES FOR HYPOGLYCEMIA PO PRN (09:31)
[2022-07-18] MEDS ORDERED: DEXTROSE 50% 50 ML SYRINGE IV PRN (09:31)
[2022-07-18] MEDS ORDERED: GLUCOSE 40% GEL 15 GM TUBE PO PRN (09:31)
[2022-07-18] MEDS ORDERED: GLUCOSE 10 TAB/TUBE PO PRN (09:31)
[2022-07-18] MEDS ORDERED: ARTIFICIAL TEARS OP PRN (11:10)
[2022-07-18] MEDS: INSULIN ASPART PER UNIT SC SCH ×3 (12:42→21:57)
[2022-07-18] MEDS: ASPIRIN 81 MG ECTAB PO SCH (20:46)
[2022-07-18] MEDS: HEPARIN SOD 5,000 UNIT/0.5 ML VIAL SQ SCH (20:46)
[2022-07-18] MEDS: LANTUS PER UNIT CHARGE SQ SCH (21:57)
[2022-07-18] MEDS: MELATONIN 3 MG TAB PO SCH (22:07)
[2022-07-19 06:09] LABS: Hematocrit (blood only) 34.1 % (34.1-44.9); Hemoglobin 11.6 g/dl (12.0-16.0); Mean Corpuscular Hemoglobin 31.3 pg (25.0-34.0); Mean Corpuscular Volume 91.9 fL (80.0-100.0); Mean Platelet Volume 10.6 fL (9.4-12.3); Platelet Count 221 K/uL (130-400); RDW Coefficient of Variation 12.1 % (11.5-14.5); RDW Standard Deviation 40.9 fL (36.4-46.3); Red Blood Count 3.71 M/uL (3.93-5.22); White Blood Count 4.29 K/ul (4.8-10.8)
[2022-07-19 06:34] LABS: BUN Creatinine Ratio 55.8 (10-20); Calcium 8.9 mg/dl (8.5-10.1); Chol HDL Ratio 4.5 (0-5); Creatinine Clr Calc Pharmacy 82.6 ml/min; Est GFR (African American) 106.1 ml/min; Est GFR (Non-African American) 91.5 ml/min; Potassium 3.8 mmol/L (3.5-5.1)
[2022-07-19] MEDS: INSULIN ASPART PER UNIT SC SCH ×4 (08:21→21:36)
[2022-07-19] MEDS: LANTUS PER UNIT CHARGE SQ SCH ×2 (08:21→21:37)
[2022-07-19] MEDS: HEPARIN SOD 5,000 UNIT/0.5 ML VIAL SQ SCH ×2 (08:22→21:01)
[2022-07-19] MEDS: LACTOBACILLUS ACIDOPHILUS 1 GM PACK PO SCH (08:23)
[2022-07-19] MEDS: hydroCHLOROthiazide 25 MG TAB PO SCH (08:23)
[2022-07-19] MEDS: POTASSIUM CHLORIDE CRTAB 20 MEQ TABCR PO SCH (08:23)
[2022-07-19] MEDS: lisinopril 40 MG TAB PO SCH (08:23)
[2022-07-19] MEDS: CEROVITE ADV FORMULA TAB PO SCH (08:23)
[2022-07-19] MEDS: DICLOFENAC SOD 1% GEL 100 GM TUBE EXT SCH ×2 (13:34→21:00)
--- NOTE | 2022-07-19 14:34 | Hospitalist Progress Note ---
Date of Service July 19, 2022 Assessment & Plan (1) Hypertensive urgency: Plan Hypertensive urgency Headache Patient woke up around 2-3 AM on the day of arrival with posterior headache. Admitting blood pressure 191/60, Admitting labs fairly WNL, COVID-negative Patient received morphine and labetalol and aspirin in the ED with resolution of her headache. Admitting CXR/C-spine CT with no acute finding. Admitting CT head with hypodensity in the right posterior internal capsule suggestive of age indeterminate infarct, no evidence of hemorrhage. 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 Complains left occipital tenderness and pain No neurological symptoms associated with it No new stroke on imaging studies Will apply local Voltaren gel We will get PT and OT evaluation and possible discharge tomorrow Patient has remote history of stroke of which patient is not much aware of regarding details. Patient reports taking her blood pressure medications as prescribed, does not measure blood pressure at home. Neurological examination WNL, no focal weakness. No new neurological symptoms and no sequelae from prior stroke Neurochecks as needed, telemetry monitoring, continue home blood pressure medication, as needed blood pressure medication for now, may need to titrate home BP meds Lipid profile -unremarkable except triglyceride is 208 Continue with home medications including aspirin. Other chronic medical conditions: As mentioned in HPI including diabetes ---> sliding scale insulin for diabetes, resume other home meds as able. DVT prophylaxis: Heparin subcu DNR/DNI. Admission and Anticipated Discharge Date Admission Date: July 18, 2022 Subjective 07/19/2022 The patient was seen and examined in telemetry unit She has been complaining of left occipital pain and tenderness Denies any neurological symptoms Review of Systems Review of Systems: All systems reviewed and are unremarkable except as noted below Physical Exam Physical Exam: Sitting at the edge of the bed without any acute distress Constitutional: well developed, well nourished, + ill appearing and average body habitus Eyes: PERRL, conjunctivae normal, anicteric sclerae ENMT: external ear and nose normal, oropharynx normal Neck: trachea midline, no thyromegaly Respiratory: no respiratory distress Auscultation: lungs clear to auscultation bilaterally Cardiovascular: Rate/Rhythm: regular rate and regular rhythm; not tachycardic Heart Sounds: normal S1 and normal S2; no murmur Extremities: no edema Gastrointestinal (Abdomen): Inspection/Auscultation: normal bowel sounds; abdomen not distended Percussion/Palpation: abdomen soft; abdomen nontender Musculoskeletal: No acute arthritis in any joint Neurologic: normal touch/pain/proprioception and moves all extremities; no focal motor deficits Psychiatric: A+Ox3, euthymic affect Lymphatic: no cervical or axillary lymphadenopathy Results & Data Results & Data ([facility]) Vital Signs (Past 12 Hours) Vital Signs Temp Pulse Pulse Resp BP Pulse Ox O2 Del Method 07/19/22 11:36 36.7 C 61 18 135/65 97 Room Air 07/19/22 08:00 56 L 07/19/22 07:28 36.7 C 65 17 149/51 H 96 Room Air 07/19/22 04:01 36.4 C L 66 18 133/72 95 Room Air Laboratory Results Short CBC 07/19/22 Range/Units 05:46 WBC 4.29 L (4.8-10.8) K/ul Hgb 11.6 L (12.0-16.0) g/dl Hct 34.1 (34.1-44.9) % Plt Count 221 (130-400) K/uL [facility] 07/19/22 05:46 Sodium 140 Potassium 3.8 Chloride 107 Carbon Dioxide 27 BUN 29 H Creatinine 0.52 L Glucose 181 H Calcium 8.9 Medications Administered Current Inpatient Medications Acetaminophen (Acetaminophen 325 Mg Tab) 650 mg PO Q4H PRN PRN Reason: Pain or Fever Stop: 08/17/22 08:41 Last Admin: 07/18/22 16:00 Dose: 650 mg Al Hydrox/Mg Hydrox/Simethicone (Aluminum/Magnesium Susp 30 Ml Udc) 15 ml PO Q4H PRN PRN Reason: Dyspepsia Stop: 08/17/22 08:41 Artificial Tears (Artificial Tears) 1 drops OP DAILY PRN PRN Reason: Dry Eyes Stop: 08/17/22 11:09 Aspirin (Aspirin 81 Mg Ectab) 81 mg PO HS DAVE Stop: 08/17/22 20:59 Last Admin: 07/18/22 20:46 Dose: 81 mg Dextrose (Dextrose 50% 50 Ml Syringe) 25 - 50 ml IV UD PRN; Protocol PRN Reason: Hypoglycemia Protocol Stop: 08/17/22 09:30 Diclofenac Sodium (Diclofenac Sod 1% Gel 100 Gm Tube) 2 gm EXT BID DAVE; Protocol Stop: 08/18/22 12:29 Last Admin: 07/19/22 13:34 Dose: 2 gm Glucagon (Glucagon For Inj 1 Mg Vial) 1 mg SQ UD PRN; Protocol PRN Reason: Hypoglycemia Protocol Stop: 08/17/22 09:30 Glucose (Glucose 40% Gel 15 Gm Tube) 15 - 30 gm PO UD PRN; Protocol PRN Reason: Hypoglycemia Protocol Stop: 08/17/22 09:30 Glucose (Glucose 10 Tab/Tube) 4 - 8 tab PO UD PRN; Protocol PRN Reason: Hypoglycemia Treatment Stop: 08/17/22 09:30 Heparin Sodium (Porcine) (Heparin Sod 5,000 Unit/0.5 Ml Vial) 5,000 units SQ Q12 DAVE Stop: 08/17/22 20:59 Last Admin: 07/19/22 08:22 Dose: 5,000 units Hydrochlorothiazide (Hydrochlorothiazide 25 Mg Tab) 12.5 mg PO DAILY [facility] Stop: 08/18/22 08:59 Last Admin: 07/19/22 08:23 Dose: 12.5 mg Insulin Aspart (Insulin Aspart Per Unit) 0 units SC ACHS [facility] Stop: 08/17/22 11:29 Last Admin: 07/19/22 12:31 Dose: 5 units Insulin Glargine (Lantus Per Unit Charge) 32 units SQ AMHS [facility] Stop: 08/17/22 20:59 Last Admin: 07/19/22 08:21 Dose: 32 units Lactobacillus Acidophilus (Lactobacillus Acidophilus 1 Gm Pack) 1 gm PO DAILY DAVE Stop: 08/18/22 08:59 Last Admin: 07/19/22 08:23 Dose: 1 gm Lisinopril (Lisinopril 40 Mg Tab) 40 mg PO DAILY DAVE Stop: 08/18/22 08:59 Last Admin: 07/19/22 08:23 Dose: 40 mg Magnesium Hydroxide (Magnesium Hydroxide Susp 30 Ml Udc) 30 ml PO Q12H PRN PRN Reason: Constipation Stop: 08/17/22 08:41 Melatonin (Melatonin 3 Mg Tab) 6 mg PO HSZ [facility] Stop: 08/17/22 21:59 Last Admin: 07/18/22 22:07 Dose: 6 mg Miscellaneous (Carbohydrates For Hypoglycemia ) 15 - 30 gm PO UD PRN PRN Reason: Hypoglycemia Protocol Stop: 08/17/22 09:30 Miscellaneous (Restasis ~ Order Awaiting Action) 1 each N/A QS [facility] Stop: 08/17/22 15:59 Last Admin: 07/19/22 07:16 Dose: Not Given Multivitamins/Minerals (Cerovite Adv Formula Tab) 1 tab PO DAILY [facility] Stop: 08/18/22 08:59 Last Admin: 07/19/22 08:23 Dose: 1 tab Ondansetron HCl (Ondansetron Inj 2 Mg/Ml 2 Ml Vial) 4 mg IV Q6H PRN PRN Reason: Nausea Stop: 08/17/22 08:41 Polyethylene Glycol (Polyethylene (Miralax) 17 Gm Pack) 17 gm PO DAILY PRN PRN Reason: Constipation Stop: 08/17/22 08:41 Potassium Chloride (Potassium Chloride Crtab 20 Meq Tabcr) 20 meq PO QAM [facility] Stop: 08/18/22 08:59 Last Admin: 07/19/22 08:23 Dose: 20 meq
--- NOTE | 2022-07-19 21:19 | Electrocardiogram Report ---
Test Reason : Blood Pressure : / mmHG Vent. Rate : 097 BPM Atrial Rate : 097 BPM P-R Int : 142 ms QRS Dur : 118 ms QT Int : 406 ms P-R-T Axes : 060 -41 112 degrees QTc Int : 515 ms Sinus rhythm with Premature atrial complexes Left axis deviation Left ventricular hypertrophy with QRS widening and repolarization abnormality Abnormal ECG When compared with ECG of 06-JUL-2022 18:29, Premature atrial complexes are now Present Confirmed by Jeanmarie Pete ([id number]) on 07/19/2022 9:19:07 PM Referred By: REFERRED SELF Confirmed By:Jeanmarie Pete
[2022-07-19] MEDS: ASPIRIN 81 MG ECTAB PO SCH (22:10)
[2022-07-19] MEDS: MELATONIN 3 MG TAB PO SCH (22:10)
[2022-07-20 06:16] LABS: Basophils # (auto) 0.02 K/uL (0-0.2); Basophils % (auto) 0.4 %; Eosinophils # (auto) 0.18 K/uL (0-0.50); Eosinophils % (auto) 3.6 %; Hematocrit (blood only) 34.7 % (34.1-44.9); Hemoglobin 11.9 g/dl (12.0-16.0); Immature Granulocytes # (auto) 0.01 K/uL (0.00-0.02); Immature Granulocytes % (auto) 0.2 %; Lymphocytes # (auto) 2.27 K/uL (1.2-3.4); Lymphocytes % (auto) 45.9 %; Mean Corpuscular Hemoglobin 31.4 pg (25.0-34.0); Mean Corpuscular Hgb Conc 34.3 g/dL (32.0-36.0); Mean Corpuscular Volume 91.6 fL (80.0-100.0); Mean Platelet Volume 10.7 fL (9.4-12.3); Monocytes # (auto) 0.64 K/uL (0.24-0.82); Monocytes % (auto) 12.9 %; Neutrophils # (auto) 1.83 K/uL (1.4-6.5); Platelet Count 240 K/uL (130-400); RDW Coefficient of Variation 12.2 % (11.5-14.5); RDW Standard Deviation 40.9 fL (36.4-46.3); Red Blood Count 3.79 M/uL (3.93-5.22); White Blood Count 4.95 K/ul (4.8-10.8)
[2022-07-20 06:41] LABS: BUN Creatinine Ratio 39.6 (10-20); Calcium 9.2 mg/dl (8.5-10.1); Creatinine Clr Calc Pharmacy 89.5 ml/min; Est GFR (African American) 108.9 ml/min; Potassium 3.6 mmol/L (3.5-5.1)
[2022-07-20] MEDS: POTASSIUM CHLORIDE CRTAB 20 MEQ TABCR PO SCH (08:36)
[2022-07-20] MEDS: lisinopril 40 MG TAB PO SCH (08:36)
[2022-07-20] MEDS: hydroCHLOROthiazide 25 MG TAB PO SCH (08:36)
[2022-07-20] MEDS: LACTOBACILLUS ACIDOPHILUS 1 GM PACK PO SCH (08:36)
[2022-07-20] MEDS: HEPARIN SOD 5,000 UNIT/0.5 ML VIAL SQ SCH (08:37)
[2022-07-20] MEDS: CEROVITE ADV FORMULA TAB PO SCH (08:37)
[2022-07-20] MEDS: INSULIN ASPART PER UNIT SC SCH ×2 (08:37→12:02)
[2022-07-20] MEDS: LANTUS PER UNIT CHARGE SQ SCH (08:39)
[2022-07-20] MEDS: DICLOFENAC SOD 1% GEL 100 GM TUBE EXT SCH (08:39)
--- NOTE | 2022-07-20 12:37 | Hospitalist Progress Note ---
Date of Service July 20, 2022 Assessment & Plan (1) Hypertensive urgency: Plan Hypertensive urgency Headache-no more headache Patient woke up around 2-3 AM on the day of arrival with posterior headache. Admitting blood pressure 191/60, Admitting labs fairly WNL, COVID-negative Patient received morphine and labetalol and aspirin in the ED with resolution of her headache. Admitting CXR/C-spine CT with no acute finding. Admitting CT head with hypodensity in the right posterior internal capsule suggestive of age indeterminate infarct, no evidence of hemorrhage. Admitting brain MRI: Previously noted age-indeterminate right basal ganglia infa rct is chronic, no acute stroke is seen. Complains left occipital tenderness and pain No neurological symptoms associated with it No new stroke on imaging studies Will apply local Voltaren gel Clinically much better and did not have any neurological symptoms and the blood pressure is controlled Has had physical therapy and did very well Will be discharged home this afternoon Patient has remote history of stroke of which patient is not much aware of regarding details. Patient reports taking her blood pressure medications as prescribed, does not measure blood pressure at home. Neurological examination WNL, no focal weakness. No new neurological symptoms and no sequelae from prior stroke Neurochecks as needed, telemetry monitoring, continue home blood pressure medication, as needed blood pressure medication for now, may need to titrate home BP meds Lipid profile -unremarkable except triglyceride is 208 Continue with home medications including aspirin. Other chronic medical conditions: As mentioned in HPI including diabetes ---> sliding scale insulin for diabetes, resume other home meds as able. DVT prophylaxis: Heparin subcu DNR/DNI. Admission and Anticipated Discharge Date Admission Date: July 18, 2022 Subjective 07/19/2022 The patient was seen and examined in telemetry unit She has been complaining of left occipital pain and tenderness Denies any neurological symptoms 07/20/2022 The patient was seen and examined in telemetry unit She is worried about left occipital lumpiness with pain Has been ambulating in the room and in the hallway without any problem Will be discharged home this afternoon Review of Systems Review of Systems: All systems reviewed and are unremarkable except as noted below Physical Exam Physical Exam: Sitting at the edge of the bed without any acute distress Constitutional: well developed, well nourished, + ill appearing and average body habitus Eyes: PERRL, conjunctivae normal, anicteric sclerae ENMT: external ear and nose normal, oropharynx normal Neck: trachea midline, no thyromegaly Respiratory: no respiratory distress Auscultation: lungs clear to auscultation bilaterally Cardiovascular: Rate/Rhythm: regular rate and regular rhythm; not tachycardic Heart Sounds: normal S1 and normal S2; no murmur Extremities: no edema Gastrointestinal (Abdomen): Inspection/Auscultation: normal bowel sounds; abdomen not distended Percussion/Palpation: abdomen soft; abdomen nontender Neurologic: normal touch/pain/proprioception and moves all extremities; no focal motor deficits Examination of the left occipital area did not show any lump but it was minimally tender Psychiatric: A+Ox3, euthymic affect Lymphatic: no cervical or axillary lymphadenopathy Results & Data Results & Data ([facility]) Vital Signs (Past 12 Hours) Vital Signs Temp Pulse Pulse Resp BP Pulse Ox O2 Del Method 07/20/22 11:30 36.6 C 76 17 123/60 96 Room Air 07/20/22 09:56 Room Air 07/20/22 08:08 89 07/20/22 07:10 36.6 C 66 17 91/59 L 98 Room Air 07/20/22 03:33 36.6 C 84 18 132/54 L 93 Room Air 07/20/22 01:34 95 H Laboratory Results Short CBC 07/20/22 Range/Units 05:43 WBC 4.95 (4.8-10.8) K/ul Hgb 11.9 L (12.0-16.0) g/dl Hct 34.7 (34.1-44.9) % Plt Count 240 (130-400) K/uL [facility] 07/20/22 05:43 Sodium 140 Potassium 3.6 Chloride 107 Carbon Dioxide 30 BUN 19 Creatinine 0.48 L Glucose 141 H Calcium 9.2 Medications Administered Current Inpatient Medications Acetaminophen (Acetaminophen 325 Mg Tab) 650 mg PO Q4H PRN PRN Reason: Pain or Fever Stop: 08/17/22 08:41 Last Admin: 07/18/22 16:00 Dose: 650 mg Al Hydrox/Mg Hydrox/Simethicone (Aluminum/Magnesium Susp 30 Ml Udc) 15 ml PO Q4H PRN PRN Reason: Dyspepsia Stop: 08/17/22 08:41 Artificial Tears (Artificial Tears) 1 drops OP DAILY PRN PRN Reason: Dry Eyes Stop: 08/17/22 11:09 Aspirin (Aspirin 81 Mg Ectab) 81 mg PO HS [facility] Stop: 08/17/22 20:59 Last Admin: 07/19/22 22:10 Dose: 81 mg Dextrose (Dextrose 50% 50 Ml Syringe) 25 - 50 ml IV UD PRN; Protocol PRN Reason: Hypoglycemia Protocol Stop: 08/17/22 09:30 Diclofenac Sodium (Diclofenac Sod 1% Gel 100 Gm Tube) 2 gm EXT BID DAVE; Protocol Stop: 08/18/22 12:29 Last Admin: 07/20/22 08:39 Dose: 2 gm Glucagon (Glucagon For Inj 1 Mg Vial) 1 mg SQ UD PRN; Protocol PRN Reason: Hypoglycemia Protocol Stop: 08/17/22 09:30 Glucose (Glucose 40% Gel 15 Gm Tube) 15 - 30 gm PO UD PRN; Protocol PRN Reason: Hypoglycemia Protocol Stop: 08/17/22 09:30 Glucose (Glucose 10 Tab/Tube) 4 - 8 tab PO UD PRN; Protocol PRN Reason: Hypoglycemia Treatment Stop: 08/17/22 09:30 Heparin Sodium (Porcine) (Heparin Sod 5,000 Unit/0.5 Ml Vial) 5,000 units SQ Q12 [facility] Stop: 08/17/22 20:59 Last Admin: 07/20/22 08:37 Dose: 5,000 units Hydrochlorothiazide (Hydrochlorothiazide 25 Mg Tab) 12.5 mg PO DAILY [facility] Stop: 08/18/22 08:59 Last Admin: 07/20/22 08:36 Dose: 12.5 mg Insulin Aspart (Insulin Aspart Per Unit) 0 units SC ACHS [facility] Stop: 08/17/22 11:29 Last Admin: 07/20/22 12:02 Dose: 6 units Insulin Glargine (Lantus Per Unit Charge) 32 units SQ AMHS [facility] Stop: 08/17/22 20:59 Last Admin: 07/20/22 08:39 Dose: 32 units Lactobacillus Acidophilus (Lactobacillus Acidophilus 1 Gm Pack) 1 gm PO DAILY [facility] Stop: 08/18/22 08:59 Last Admin: 07/20/22 08:36 Dose: 1 gm Lisinopril (Lisinopril 40 Mg Tab) 40 mg PO DAILY [facility] Stop: 08/18/22 08:59 Last Admin: 07/20/22 08:36 Dose: Not Given Magnesium Hydroxide (Magnesium Hydroxide Susp 30 Ml Udc) 30 ml PO Q12H PRN PRN Reason: Constipation Stop: 08/17/22 08:41 Melatonin (Melatonin 3 Mg Tab) 6 mg PO HSZ [facility] Stop: 08/17/22 21:59 Last Admin: 07/19/22 22:10 Dose: 6 mg Miscellaneous (Carbohydrates For Hypoglycemia ) 15 - 30 gm PO UD PRN PRN Reason: Hypoglycemia Protocol Stop: 08/17/22 09:30 Miscellaneous (Restasis ~ Order Awaiting Action) 1 each N/A QS [facility] Stop: 08/17/22 15:59 Last Admin: 07/20/22 08:37 Dose: Not Given Multivitamins/Minerals (Cerovite Adv Formula Tab) 1 tab PO DAILY [facility] Stop: 08/18/22 08:59 Last Admin: 07/20/22 08:37 Dose: 1 tab Ondansetron HCl (Ondansetron Inj 2 Mg/Ml 2 Ml Vial) 4 mg IV Q6H PRN PRN Reason: Nausea Stop: 08/17/22 08:41 Polyethylene Glycol (Polyethylene (Miralax) 17 Gm Pack) 17 gm PO DAILY PRN PRN Reason: Constipation Stop: 08/17/22 08:41 Potassium Chloride (Potassium Chloride Crtab 20 Meq Tabcr) 20 meq PO QAM [facility] Stop: 08/18/22 08:59 Last Admin: 07/20/22 08:36 Dose: 20 meq
--- NOTE | 2022-07-28 08:01 | Discharge Summary ---
Date of Service July 20, 2022 Admission HPI Per Admitting Provider 77-year-old lady with PMH of diverticulosis of colon, FLORES, HTN, HLD, T2DM, fibromyalgia, restless leg syndrome, pseudogout, chronic pain syndrome, tremor, statin intolerance presented to our ED 07/18 with headache (back of head) since she woke up. Of note, she was recently at [facility] 07/06/22 - 07/09/22 for GI bleed. Patient reports waking up around 2-3 AM in the morning with headache that felt like hurting at the back of her head and also felt like lump, reports the hurt was radiating down along the sides of her back of neck. Patient reports she suffered from flulike illness few days after she was discharged on July 09, and is recovering from them and reports improving cough/improving sore throat/no more runny nose and myalgia. Patient denies fever, chest pain, palpitation, belly pain, acute changes in her bowel or bladder habit, any new weakness or numbness or tingling anywhere in the body, any skin rash or open wound. Patient denies smoking (brief smoking during early years) /alcohol use/recreational drug use CODE STATUS DNR/DNI as per discussion with patient. In the past patient worked in [employer] [her work were mostly physical in nature] Family history positive for gastrointestinal disorder in her aunt and cousin, mother had diverticulitis and colostomy, father had some heart disorder. Also reports stroke in her Grandmother, cousin (in her 50s) and aunts. Medications were reviewed with the patient at bedside. Plan of care discussed with the patient. Admission Exam Per Admitting Provider Physical Exam: GENERAL: Alert and oriented x3. NAD, on RA. HEENT: No pallor, no icterus. Pupils equal, round and reactive to light. Oral mucosa moist. NECK: No JVD, no neck masses. HEART: S1 and S2 heard. Regular rate and rhythm. systolic murmur at aortic area, no gallop. RESPIRATORY SYSTEM: Normal AP diameter. No accessory muscle use. No wheezing, no crackles. ABDOMEN: Soft, bowel sounds present,nontender, no distention. CENTRAL NERVOUS SYSTEM: No facial droop. Speech is clear. Obeys simple commands. Moves extremities. No facial droop, strength all extremities 5/5. EXTREMITIES: No edema, no erythema seen. Principal Diagnosis Hypertensive urgency, left occipital tenderness without any significant f indings, recent stroke without any sequelae Discharge Exam Sitting at the edge of the bed without any acute distress Constitutional well developed, well nourished, + ill appearing and average body habitus Eyes PERRL, conjunctivae normal, anicteric sclerae ENMT external ear and nose normal, oropharynx normal Neck trachea midline, no thyromegaly Respiratory no respiratory distress Auscultation: lungs clear to auscultation bilaterally Cardiovascular Rate/Rhythm: regular rate and regular rhythm; not tachycardic Heart Sounds: normal S1 and normal S2; no murmur Extremities: no edema Gastrointestinal (Abdomen) Inspection/Auscultation: normal bowel sounds; abdomen not distended Percussion/Palpation: abdomen soft; abdomen nontender Neurologic normal touch/pain/proprioception and moves all extremities; no focal motor deficits Psychiatric A+Ox3, euthymic affect Lymphatic no cervical or axillary lymphadenopathy Discharge Data Allergies Allergy/AdvReac Type Severity Reaction Status Date / Time blue dye Allergy Unknown Unknown Verified 07/08/22 10:41 celecoxib Allergy Unknown unknown Verified 07/08/22 10:41 diphenhydramine Allergy Unknown SEE NOTES Verified 07/08/22 10:41 [From Benadryl] duloxetine Allergy Unknown Unknown Verified 07/08/22 10:41 latex Allergy Unknown REDNESS Verified 07/08/22 10:41 linaclotide Allergy Unknown UNSURE Verified 07/08/22 10:41 meloxicam Allergy Unknown HEART Verified 07/08/22 10:41 PALPITATIONS metformin Allergy Unknown UNSURE Verified 07/08/22 10:41 nitrofurantoin Allergy Unknown muscle pain Verified 07/08/22 10:41 nylon Allergy Unknown "NYLON Verified 07/08/22 10:41 SUTURES" - RASH pneumococcal vaccine Allergy Unknown NAUSEATED Verified 07/08/22 10:41 pregabalin Allergy Unknown Unknown Verified 07/08/22 10:41 sertraline Allergy Unknown "I FELT Verified 07/08/22 10:41 STRANGE" Sulfa (Sulfonamide Allergy Unknown RASH Verified 07/08/22 10:41 Antibiotics) bee venom protein (honey bee) Allergy Unknown Verified 07/08/22 10:41 ciprofloxacin [From Cipro] Allergy Unknown Verified 07/08/22 10:41 Iodinated Contrast Media AdvReac Intermediate "GUILHERME ME Verified 07/08/22 10:41 [Iodinated Contrast- Oral OFF THE and IV Dye] BED" naproxen AdvReac Unknown UNSURE Verified 07/08/22 10:41 PAST REACTION - SEE NOTES oxycodone AdvReac Unknown ITCHING ? Verified 07/08/22 10:41 - PT NOT SURE simvastatin AdvReac Unknown leg Verified 07/08/22 10:41 cramping tapentadol [From Nucynta] AdvReac Unknown ITCHING Verified 07/08/22 10:41 Consultations 07/18/22 06:58 ED Decision to Admit Stat Ordered Studies 07/18/22 05:29 CT cervical spine wo con Stat CT head/brain wo con Stat 07/18/22 06:42 MRI Brain [MR brain wo con] Stat Hospital Course (1) Hypertensive urgency: Plan Hypertensive urgency Headache-no more headache Patient woke up around 2-3 AM on the day of arrival with posterior headache. Admitting blood pressure 191/60, Admitting labs fairly WNL, COVID-negative Patient received morphine and labetalol and aspirin in the ED with resolution of her headache. Admitting CXR/C-spine CT with no acute finding. Admitting CT head with hypodensity in the right posterior internal capsule suggestive of age indeterminate infarct, no evidence of hemorrhage. 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 Complains left occipital tenderness and pain No neurological symptoms associated with it No new stroke on imaging studies Will apply local Voltaren gel Clinically much better and did not have any neurological symptoms and the blood pressure is controlled Has had physical therapy and did very well Will be discharged home this afternoon Patient has remote history of stroke of which patient is not much aware of regarding details. Patient reports taking her blood pressure medications as prescribed, does not measure blood pressure at home. Neurological examination WNL, no focal weakness. No new neurological symptoms and no sequelae from prior stroke Neurochecks as needed, telemetry monitoring, continue home blood pressure medication, as needed blood pressure medication for now, may need to titrate home BP meds Lipid profile -unremarkable except triglyceride is 208 Continue with home medications including aspirin. Other chronic medical conditions: As mentioned in HPI including diabetes ---> sliding scale insulin for diabetes, resume other home meds as able. DVT prophylaxis: Heparin subcu DNR/DNI. Total Time Total Time Spent Total Time Spent (In Minutes): 35 minutes Discharge Plan Discharge Items Patient Disposition: Home - Self-Care Reason For Visit: HEADACHE,HIGH BP Discharge Diagnosis: Hypertensive urgency, left occipital tenderness without any significant findings, recent stroke without any sequelae Condition on Discharge: Good Activity: Resume your previous activity Non-emergency contact: Primary Care Provider Call non-emergency contact if: you have any medication questions and your symptoms worsen Follow-up/Referrals: Michi Melchor DO [Primary Care Provider] - (Date & Time 07/28/2022 11:00 AM Provider Rachel Giordano DO Department [facility] ) Diet: Heart Healthy and Low Sodium (2gm) Addtl Attending Provider Instructions: Please take precautions to avoid fall Please take your medications as advised Please keep appointment with your healthcare provider Pending Studies at Discharge: No Stand-Alone Forms: [employer], Smoking Cessation Medications and DC Order Prescriptions: New diclofenac sodium [Voltaren Arthritis Pain] 1 % Gel 2 g EXT BID 10 Days Qty: 30 0RF Continued lisinopril 40 mg tablet 40 mg PO DAILY multivitamin Tablet 1 tab PO DAILY amoxicillin 500 mg Capsule 2,000 mg PO DIRECTED Rx Instructions: TAKE PRIOR TO DENTAL PROCEDURES insulin glargine [Lantus U-100 Insulin] 100 unit/mL solution 32 unit SUBCUT AMHS aspirin 81 mg Tablet,Delayed Release (Dr/Ec) 81 mg PO HS potassium chloride 20 mEq tablet,ER particles/crystals 20 meq PO QAM Premarin 0.625 mg/gram cream 1 applic topical DIRECTED cranberry 500 mg Capsule 500 mg PO DAILY Rx Instructions: administer with meals insulin aspart U-100 [Novolog FlexPen U-100 Insulin] 100 unit/mL (3 mL) insulin pen 20 - 25 unit SUBCUT TIDM cyclosporine [Restasis] 0.05 % Dropperette 1 drp OPHTHALMIC (EYE) DIRECTED hydrochlorothiazide 12.5 mg tablet 12.5 mg PO DAILY Refresh Optive 0.5-0.9 % Drops 1 drp OPHTHALMIC (EYE) DAILY PRN (Reason: Dry Eyes) turmeric root extract 500 mg Capsule 500 mg PO DAILY Probiotic 3 billion cell Capsule 0 mmu cells PO DAILY Rx Instructions: administer with a meal Neilmed Sinus Rinse Complete Packet With Rinse Device 1 ea DIRECTED melatonin 5 mg Capsule 5 mg PO HS Discharge Orders: Discharge Order (Routine); Ordered 07/20/22 Ordered By: Javier Grimes Admission Data Admit Date/Time: 07/18/22 08:01 Attending Provider: Javier Grimes Admit Provider: Madeleine Miller Primary Care Provider: Michi Melchor Other Providers: Javier Grimes ; Madeleine Miller Other Interventions: Discharge Summary Assessment (RN) Last Done: 07/20/22 12:47
== END 2022-07-20 13:51 | disposition home or self-care (01) ==
LOC: ED 04:44 → SUATTDRO 08:01 → INTOOBSV 08:01 → 4W 08:01